=== PATIENT | female | born 1950 | race Caucasian/White ===

== ENCOUNTER 2021-03-17 12:55 | Outpatient (REF) | payer MEDICARE, OTHER, SELFPAY ==
[2021-03-17 14:03] LABS: Hemoglobin 15.8 g/dl (12.0-16.0); Mean Corpuscular HGB Conc 34.3 g/dl (31.0-35.0); Mean Corpuscular Hemoglobin 34.3 pg (27.0-33.0); Mean Corpuscular Volume 99.8 fL (80.0-98.0); Platelet Count 325 X10*3/uL (160-400); Red Blood Count 4.61 X10*6/uL (4.20-5.50); Red Cell Distribution Width 12.9 % (11.0-16.0); White Blood Count 6.5 X10*3/uL (4.8-10.8)
[2021-03-17 14:35] LABS: Alanine Aminotransferase 33 U/L (0-31); Albumin Level 4.4 g/dL (3.5-5.0); Alkaline Phosphatase 63 U/L (39-117); Anion Gap 14 (12-20); Aspartate Amino Transferase 34 U/L (5-31); Bilirubin Total 0.5 mg/dL (0.0-1.0); Blood Urea Nitrogen 10 mg/dL (9-16); Calcium 10.2 mg/dL (8.4-10.2); Carbon Dioxide 23 mmol/L (22-29); Chloride 106 mmol/L (96-108); Estimated Glomerular Filt Rate > 60; Glucose Random 106 mg/dL (60-115); Potassium 3.7 mmol/L (3.3-5.1); Sodium 139 mmol/L (135-145); Total Protein 7.1 g/dL (6.5-8.0)
== END 2021-03-17 12:56 | disposition home or self-care (01) ==
LOC: HO.LAB 12:55
PROVIDERS: PCP Internal Medicine; Referring Provider Internal Medicine; Visit Provider Nurse Practitioner Family
DX: Z01.818 Encounter for other preprocedural examination (principal); D36.9 Benign neoplasm, unspecified site
CPT/HCPCS: 36415; 80053; 85027; 99212

== ENCOUNTER 2021-07-04 07:27 | Day surgery (SDC) | payer MEDICARE, OTHER, SELFPAY ==
[2021-06-30 10:21] VITALS: BMI 27.9
--- NOTE | 2021-07-02 15:03 | P.CONAN_ITS ---
Documented by User: Norah Platt NP 07/02/21 15:04 HPI - Anesthesia Eval Consult details Narrative: 70yo F for Colonoscopy [facility] Past Medical History Medical History Colon cancer screening HTN (hypertension) Hypercholesterinemic xanthomatosis Tubular adenoma Family History Family History Father Colon cancer Mother Colon cancer Breast CA Surgical History Surgical History History of total right hip arthroplasty Hx of arthroscopic knee surgery Hx of colonoscopy Social History Social History Household Members: Spouse and Children Alcohol intake: current Alcohol intake frequency: holidays/special occasions only Patient Tobacco Use Status: Current everyday Tobacco user Tobacco use type: Cigarette Cigarette Packs Per Day: 0.5 Cigarettes Per Day: 10 Advance Directives: No Advance Directives Information Provided: Yes Advance Directives on File: No Meds Allergies Allergy/AdvReac Type Severity Reaction Status Date / Time No Known Allergies Allergy Unverified 03/17/21 12:59 Home Medications Medication Instructions Recorded Confirmed Last Taken Type atorvastatin 20 mg tablet 20 mg PO BEDTIME 03/17/21 06/30/21 Unknown History cholecalciferol (vitamin D3) 25 25 mcg PO DAILY 03/17/21 06/30/21 Unknown History mcg (1,000 unit) capsule losartan 100 1 tab PO DAILY 03/17/21 06/30/21 07/04/21 History mg-hydrochlorothiazide 12.5 mg tablet potassium chloride 10 mEq 10 meq PO DAILY 03/17/21 06/30/21 Unknown History tablet,extended release (Klor-Con) simvastatin 20 mg tablet 20 mg PO DAILY 03/17/21 06/30/21 Unknown History Exam Exam Date and Time: July 02, 2021 1503 Height,Weight and Vital Signs: Height 5 ft 5 in Weight 76.204 kg Pertinent Lab Results Pertinent Lab Results: Laboratory Tests 03/17/21 03/17/21 13:53 13:53 WBC 6.5 Hgb 15.8 Hct 46.0 Plt Count 325 Sodium 139 Potassium 3.7 Chloride 106 Carbon Dioxide 23 BUN 10 Creatinine 0.80 Assessment and Plan Assessment Anesthesia Assessment: Chart Reviewed Documented by User: Uma Russo MD 07/04/21 08:10 PMFSH Past Medical History Medical History Colon cancer screening HTN (hypertension) Hypercholesterinemic xanthomatosis Tubular adenoma Family History Family History Father Colon cancer Mother Colon cancer Breast CA Surgical History Surgical History History of total right hip arthroplasty Hx of arthroscopic knee surgery Hx of colonoscopy History of Problems with Anesthesia: Yes ( Woke up during colonoscopy 3 years ago) Social History Social History Household Members: Spouse and Children Alcohol intake: current Alcohol intake frequency: holidays/special occasions only Patient Tobacco Use Status: Current everyday Tobacco user Tobacco use type: Cigarette Cigarette Packs Per Day: 0.5 Cigarettes Per Day: 10 Advance Directives: No Advance Directives Information Provided: Yes Advance Directives on File: No Meds Allergies Allergy/AdvReac Type Severity Reaction Status Date / Time No Known Allergies Allergy Unverified 03/17/21 12:59 Home Medications Medication Instructions Recorded Confirmed Last Taken Type atorvastatin 20 mg tablet 20 mg PO BEDTIME 03/17/21 06/30/21 Unknown History cholecalciferol (vitamin D3) 25 25 mcg PO DAILY 03/17/21 06/30/21 Unknown History mcg (1,000 unit) capsule losartan 100 1 tab PO DAILY 03/17/21 06/30/21 07/04/21 History mg-hydrochlorothiazide 12.5 mg tablet potassium chloride 10 mEq 10 meq PO DAILY 03/17/21 06/30/21 Unknown History tablet,extended release (Klor-Con) simvastatin 20 mg tablet 20 mg PO DAILY 03/17/21 06/30/21 Unknown History Exam Airway Mallampati Class: III TM Dist: >3cm Neck ROM: Full Loose/Missing/Broken Teeth: No Heart: RRR Lungs: CTA Assessment and Plan Assessment Anesthesia Assessment: Anesthesia Plan Discussed Final Anesthetic Review History of Problems with Anesthesia: Yes ( Woke up during colonoscopy 3 years ago) NPO: Yes ASA Class: II Final Preanesthetic Review: Meds/Allgs Chart Reviewed, Consent Obtained/Reviewed and Anes Risks/Benef Reviewed Patient Risk: Low Procedure Risk: Low Anesthetic Plan Anesthetic Plan: MAC: Disposition: Standard PACU
[2021-07-04 07:54] VITALS: BP 178/94; PULSE 73; RESP 16; TEMP 36.5; O2SAT 97
[2021-07-04] MEDS: Lactated Ringers 1,000 ML 100 ML IVCONT (08:01)
--- NOTE | 2021-07-04 08:21 | MHC.SHP ---
Pre-Procedural Eval Section A Date of Service: 07/04/21 Section B Chief Complaint: Colon cancer screening, history of colon polyps Details of Present Illness: Colon cancer screening, history of colon polyps Relevant Family History (Specify if Yes): Yes Relevant Social History: Tobacco Use Present Medications: see Short Stay Collaborative assessment Medical History: Significant History (Colon cancer screening HTN (hypertension) Hypercholesterinemic xanthomatosis Tubular adenoma) History of Previous Operations: Relevant previous surgery/procedure and date(s) (History of total right hip arthroplasty Hx of colonoscopy) Allergies: Allergies Allergy/AdvReac Type Severity Reaction Status Date / Time No Known Allergies Allergy Unverified 03/17/21 12:59 Review of Systems Sugical H&P ROS: Negative: Constitution, Cardiovascular, Respiratory and Gastrointestinal Exam Surgical H&P Exam: Normal: Heart, Normal: Lungs, Normal: Extremities and Normal: Abdomen Plan Diagnosis/Plan: Unchanged I have reviewed the history and physical and performed a pertinent physical examination on my patient. No changes have occurred unless specified.
--- NOTE | 2021-07-04 08:23 | W.PM.OPN ---
Operative Note Operative Note Date of Service: 07/04/21 Narrative: Pre-op diagnosis: colon cancer screening, hx of colon polyps Post-op diagnosis:?other (Colon polyps, diverticulosis, hemorrhoids) Procedure: COLONOSCOPY TILL CECUM WITH BIOPSIES AND SNARE POLYPECTOMY Consent: Indications for the procedure and potential complications of bleeding, perforation, reaction to medications and missed diagnosis were discussed with the patient and informed consent was obtained. Instrument: Olympus PCF H 190 L variable stiffness pediatric colonoscope Monitoring: Vital signs and clinical assessment, intermittent blood pressure monitoring, continuous EKG monitoring, Pulse oximetry and Carbon Dioxide monitoring were done throughout the procedure. Colon withdrawl time was 21 minutes. Procedure: The patient was placed in the left lateral decubitis position and pre-procedure medications were administered. After a digital rectal examination of the ano-rectum, the video colonoscope was inserted into the rectum and advanced through the colon to the cecum. The colonoscope was slowly withdrawn in a retrograde panoramic fashion and the colon mucosa was carefully examined including a retroflexed view of the rectum. Findings and interventions are described below. Procedure Difficulty:? LLQ pressure applied to intubate the cecum Findings: Terminal Ileum: Not evaluated Cecum:? Normal Ascending Colon:? A 5-6 mm sessile polyp removed with the cold biopsy. Scattered moderate diverticulosis throughout the colon Transverse Colon:? A 7-8 mm sessile polyp removed with the cold snare. A 5-6 mm sessile polyp removed with the cold biopsy Scattered moderate diverticulosis throughout the colon Descending Colon:? Scattered moderate diverticulosis throughout the colon Sigmoid Colon:? Scattered moderate diverticulosis throughout the colon Rectum:? Normal Ano-rectum:? Moderate internal hemorrhoids Colon preparation:? Good after some irrigation Impression and Post Procedure Diagnosis: Colonoscopy Findings: Three small polyps removed Moderate diverticulosis seen in the entire colon Moderate hemorrhoids antegrade exam. Plan: Await pathology results Patient has an appointment on 07/18/21 in the GI Clinic with Pili Covington FNP-ISABELLE. Repeat Colonoscopy interval based on path results - in 3-5 years if polyps are adenomatous and 10 years if polyps are hyperplastic. Above findings were reviewed with the patient and colon polyps and diverticulosis handouts were given in the discharge area Surgeon: Franck Girard MD Anesthesia:?MAC (Dr Coburn) Was an Complex Director used for this Procedure?:?Yes Complex Director:?Yaima Griffin Estimated blood loss (mL):?0 Pathology:?other (A. transverse colon polyps (2)? B. ascending colon polyp) Condition:?stable Disposition:?PACU
[2021-07-04 09:32] VITALS: BP 153/82; PULSE 81; RESP 16; TEMP 36.1; O2SAT 98
[2021-07-04 09:48] VITALS: BP 159/87; PULSE 72; RESP 16; TEMP 36.1; O2SAT 97
== END 2021-07-04 10:05 | disposition home or self-care (01) ==
PROVIDERS: PCP Internal Medicine; Visit Provider Internal Medicine Gastroenterology
PROC: 0DJD8ZZ Inspection of Lower Intestinal Tract, Via Natural or Artificial Opening Endoscopic (ICD-10-PCS; CPT 45378; principal; 2021-07-04 08:30)
DX: Z12.11 Encounter for screening for malignant neoplasm of colon (principal); D12.2 Benign neoplasm of ascending colon; D12.3 Benign neoplasm of transverse colon; K57.30 Diverticulosis of large intestine without perforation or abscess without bleeding; K64.8 Other hemorrhoids; Z86.010 Personal history of colon polyps; I10 Essential (primary) hypertension; F17.210 Nicotine dependence, cigarettes, uncomplicated
CPT/HCPCS: 45385; 45380; 88305; J2250

== ENCOUNTER → 2021-10-10 13:54 | Outpatient (BNVA) | payer MEDICARE, OTHER, SELFPAY | PROVIDERS: PCP Internal Medicine; Referring Provider Internal Medicine; Visit Provider Nurse Practitioner Family | DX: D12.2 Benign neoplasm of ascending colon (principal); D12.3 Benign neoplasm of transverse colon; K57.30 Diverticulosis of large intestine without perforation or abscess without bleeding; K64.8 Other hemorrhoids; Z98.890 Other specified postprocedural states | CPT/HCPCS: 99212 ==

== ENCOUNTER 2023-10-14 15:52 | Outpatient (REF) | payer MEDICARE, OTHER, SELFPAY ==
[2023-10-14 15:58] LABS: MANUAL DIFF FLAG NO
[2023-10-14 16:07] LABS: Basophils Absolute Auto 0.1 X10*3/uL (0.0-0.2); Basophils Percent Auto 0.8 % (0-2); Eosinophils Absolute Auto 0.1 X10*3/uL (0.0-0.4); Eosinophils Percent Auto 0.8 % (0-4); Hematocrit 45.2 % (37.0-47.0); Hemoglobin 15.3 g/dl (12.0-16.0); Imm Gran Abs Auto 0.02 X10*3/uL (0.00-0.03); Imm Gran Pct Auto 0.3 % (0.0-0.4); Lymphocytes Absolute Auto 1.8 X10*3/uL (1.2-4.9); Mean Corpuscular HGB Conc 33.8 g/dl (31.0-35.0); Mean Corpuscular Hemoglobin 33.8 pg (27.0-33.0); Mean Platelet Volume 9.8 fL (9.4-12.3); Monocytes Absolute Auto 0.6 X10*3/uL (0.1-1.2); Monocytes Percent Auto 7.9 % (2-11); Neutrophils Percent Auto 66.2 % (45-73); Platelet Count 354 X10*3/uL (160-400); Red Blood Count 4.52 X10*6/uL (4.20-5.50); Red Cell Distribution Width 13.5 % (11.0-16.0); White Blood Count 7.5 X10*3/uL (4.8-10.8)
[2023-10-14 16:15] LABS: Alanine Aminotransferase 22 U/L (0-31); Albumin Level 4.3 g/dL (3.5-5.0); Alkaline Phosphatase 48 U/L (39-117); Anion Gap 14 (12-20); Aspartate Amino Transferase 24 U/L (5-31); Bilirubin Total 0.6 mg/dL (0.0-1.0); Blood Urea Nitrogen 9 mg/dL (9-16); Calcium 11.2 mg/dL (8.4-10.2); Carbon Dioxide 23 mmol/L (22-29); Chloride 107 mmol/L (96-108); Estimated Glomerular Filt Rate > 60; Glucose Fasting 122 mg/dL (60-99); Potassium 3.4 mmol/L (3.3-5.1); Sodium 141 mmol/L (135-145); Total Protein 7.1 g/dL (6.5-8.0)
== END 2023-10-14 15:53 | disposition home or self-care (01) ==
LOC: HO.LNP 15:52
PROVIDERS: Visit Provider Internal Medicine
DX: I10 Essential (primary) hypertension (principal); R60.0 Localized edema
CPT/HCPCS: 80053; 85025

== ENCOUNTER 2023-10-18 10:39 | Outpatient (REF) | payer MEDICARE, OTHER, SELFPAY ==
[2023-10-18 13:42] LABS: Calcium 11.4 mg/dL (8.4-10.2)
[2023-10-18 13:54] LABS: Parathyroid Hormone Intact 54.6 pg/mL (8.7-77.1)
== END 2023-10-18 10:40 | disposition home or self-care (01) ==
LOC: HO.10HDL 10:39
PROVIDERS: Visit Provider Internal Medicine
DX: E83.52 Hypercalcemia (principal)
CPT/HCPCS: 36415; 82310; 83970

== ENCOUNTER 2023-10-25 10:18 | Outpatient (AMB) | payer MEDICARE, OTHER, SELFPAY ==
--- NOTE | 2023-10-25 10:24 | A.OFFVIS_ITS ---
Vital Signs 10/25/23 10:28 Height 5 ft 5 in Weight 171 lb 15.369 oz BMI 28.6 BP 158/84 H Blood Pressure Location Lt brachial Position Sitting Pulse 101 H Pulse Source Pulse Oximeter Intake Visit Reasons: Disorder of parathyroid gland-lvm Intake Note: Patient present today for disorder of parathyroid gland follow up visit. 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 First noted to have high calcium just noticed . Not Currently using Calcium supplement . Takes 1000 IU of Vitamin D daily. Currently 37.5 using HCTZ. Kidney stones: No Osteoporosis: No History of [place] use: No Biotin use: No Family history of high calcium or kidney stones: No Renal imaging: [] DXA: Labs: [facility] Medical History (Updated 10/25/23 @ 10:38 by Arya Castillo MD) Hypercalcemia Colon cancer screening Tubular adenoma Hypercholesterinemic xanthomatosis HTN (hypertension) Surgical History Hx of arthroscopic knee surgery History of total right hip arthroplasty Hx of colonoscopy Family History Father Colon cancer Mother Colon cancer Breast CA Social History Household Members: Spouse and Children Alcohol intake: current Alcohol intake frequency: holidays/special occasions only Patient Tobacco Use Status: Current everyday Tobacco user Tobacco use type: Cigarette Cigarette Packs Per Day: 0.5 Cigarettes Per Day: 10 Physical Exam Vital Signs: Last Vital Signs Pulse 101 H 10/25/23 10:28 BP 158/84 H 10/25/23 10:28 BMI result Body Mass Index 28.6 There are no Cushingoid features. Neck exam shows nl thyroid about 15 gms. Lungs CTA. Heart S1 S2 Reg R/R -MRG. Abdomina exam benign . Muscle strength 5/5 proximally. No hirsuitism present. No striae present. Skin exam without lesion Assessment & Plan Assessment & Plan (1) Hypercalcemia: Code(s): E83.52 - Hypercalcemia Category: Medical Plan: This 73-year-old white female with a history of hypercalcemia currently on hydrochlorothiazide 37.5 mg per day. Possible etiologies include hydrochlorothiazide, primary hyperparathyroidism. Plan is to talk to the patient's primary care provider about holding hydrochlorothiazide for 8 weeks time and rechecking calcium and PTH. If calcium and PTH remains elevated after holding hydrochlorothiazide, patient returned ba ck to endocrinology for further workup. Coding Level of Care Code New Pt Level 4 (85967) Diagnoses Hypercalcemia E83.52
[2023-10-25 10:28] VITALS: BP 158/84; PULSE 101; BMI 28.6
== END 2023-10-25 11:00 | disposition home or self-care (01) ==
PROVIDERS: PCP Internal Medicine; Visit Provider Internal Medicine Endocrinology, Diabetes & Metabolism
DX: E83.52 Hypercalcemia (principal)
CPT/HCPCS: 99204

== ENCOUNTER → 2023-10-25 10:18 | Outpatient (BNVA) | payer MEDICARE, OTHER, SELFPAY | PROVIDERS: PCP Internal Medicine; Visit Provider Internal Medicine Endocrinology, Diabetes & Metabolism | DX: E83.52 Hypercalcemia (principal) | CPT/HCPCS: 99202 ==

== ENCOUNTER 2023-11-18 17:08 | Outpatient (REF) | payer MEDICARE, OTHER, SELFPAY ==
--- NOTE | ~2023-11-18 | MR_ITS ---
MRI OF THE LUMBAR SPINE WITHOUT IV CONTRAST CLINICAL INFORMATION: Spinal stenosis. COMPARISON: None available. TECHNIQUE: Multiplanar multisequence MR imaging of the lumbar spine obtained without contrast. FINDINGS: There are 5 nonrib-bearing lumbar-type vertebral bodies. Lumbar alignment is maintained. Marrow signal is diffusely heterogeneous. Modic type I endplate signal changes at L3-L4 and L4-L5. No additional bone marrow edema. No acute fractures. The vertebral body heights are maintained. There is severe disc volume loss at L4-L5 and there is mild disc volume loss of the remaining lumbar levels. There is disc desiccation at all lumbar levels. Conus terminates at the L1-L2 level. There is scattered colonic diverticulosis. There is paraspinal muscular atrophy bilaterally. Fatty filum terminale. L1-L2: Disc contour is normal. Mild bilateral facet arthropathy. No central canal stenosis and no foraminal stenosis. L2-L3: A left paracentral disc protrusion compresses the traversing left L3 nerve root within the left subarticular zone. [place] annular disc bulge and bilateral facet arthropathy and ligamentum flavum thickening. Mild central canal stenosis. L3-L4: Diffuse annular disc bulge that is in part disc osteophyte and severe bilateral facet arthropathy and ligamentum flavum thickening. Findings in concert result in moderate to severe central canal stenosis, bilateral subarticular zone stenosis with mass effect on the traversing L4 nerve roots bilaterally, and mild bilateral foraminal encroachment. L4-L5: Diffuse disc osteophyte complex and severe bilateral facet arthropathy and ligamentum flavum thickening. Findings in concert along with epidural lipomatosis moderately effaced the thecal sac. Left subarticular zone stenosis with mild mass effect on the traversing left L5 nerve root. Mild foraminal encroachment bilaterally. L5-S1: Diffuse disc osteophyte and advanced right-sided facet arthropathy. No foraminal stenosis. Narrowing of the right subarticular zone with mild mass effect on the traversing right S1 nerve root. MR/MR lumbar spine wo con IMPRESSION: * At L2-L3, a left paracentral disc protrusion compresses the traversing left L3 nerve root within the left subarticular zone. * At L3-L4, multifactorial degenerative changes result in moderate to severe central canal stenosis, bilateral subarticular zone stenosis with mass effect on the traversing L4 nerve roots bilaterally, and mild bilateral foraminal encroachment. Modic type I endplate signal changes at this level. * At L4-L5, multifactorial degenerative changes and epidural lipomatosis result in moderate thecal sac effacement and left subarticular zone stenosis with mild mass effect on the traversing left L5 nerve root. Modic type I endplate signal changes at this level. * At L5-S1, multifactorial degenerative changes result in right subarticular zone stenosis with mild mass effect on the traversing right S1 nerve root. Electronically signed by: Shashi Hopkins MD 11/29/2023 01:55 PM EDT
== END 2023-11-18 17:09 | disposition home or self-care (01) ==
LOC: HO.MRI 17:08
PROVIDERS: PCP Internal Medicine; Visit Provider Internal Medicine
DX: M48.07 Spinal stenosis, lumbosacral region (principal)
CPT/HCPCS: 72148

== ENCOUNTER 2023-12-10 10:49 | Outpatient (AMB) | payer MEDICARE, OTHER, SELFPAY ==
--- NOTE | 2023-12-10 11:22 | A.SPINEOV_ITS ---
Intake Visit Reasons: spinal stenosis Intake Note: Mrs. Epps is here today c/o back pain. 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 She is a very nice 73-year-old female presents to the office today for evaluation of 4 years of low back pain. She generally has back pain most of the day, as she is more active it can get worse. It is generally centered in the middle of her lumbar spine. There is no pain radiating down her legs. She has no claudicating symptoms. To this point she has done no specific therapy other than just hoping it would go away with time and modifying her activities as needed. She has tried ibuprofen. She is here today with an MRI showing degenerative disc disease and stenosis. PMH: She is reasonably healthy, history of hypertension, right hip replacement, high cholesterol, but denies any issues with cardiac, pulmonary, liver, gastrointestinal, renal, cancer, blood clot etc.. Social hx: She does smoke about half pack a day, but no alcohol or recreational drugs on a regular basis Medications: Hydrochlorothiazide, losartan, MiraLax, potassium, simvastatin, vitamin D3, atorvastatin Allergies: None Physical exam: She is awake alert oriented, she has tenderness and reports pain over the midline lumbar region. Strength and reflexes are normal in the lower extremities. Slightly antalgic gait. Imaging review: Lumbar MRI done at [place] shows diffuse spondylosis, there is degenerative disc disease most pronounced at L4-5 where there is Modic type 3 endplate changes. There is also some disc break down at L3-4 with moderate to severe central canal stenosis. There other varying degrees of mild disc degeneration throughout the lumbar spine seen on her MRI. Impression: 73-year-old female presents to the office today for evaluation of midline low back pain in the setting of diffuse spondylosis in her lumbar spine, most pronounced at L3-4 and L4-5 as outlined above. She does have stenosis at L3-4 but no lowe extremity symptoms with walking and standing. Surgery for stenosis and strictly back pain without claudicating sxs is very unpredictable with low success rates, so typically Dr. Villaseñor does not offer decompression surgery in that situation. I explained to the patient that low back pain can be very challenging to establish the exact source and that before considering an operation to fix any degenerative discs, we would generally ask the patient to go through conservative treatment 1st. This would include physical therapy, chiropractor, acupuncture, pain management etc.. While she does have enough degeneration at L4-5 that it may explain her symptoms, we would be neglecting due diligence if we did not at least try these other things 1st. I gave her a referral to PT and would like her to try that for few months and see how it goes. I told her if its generating more pain she can stop it and see me back earlier and we can consider pain management referral. Thank you for allowing us to care for your patient. The total time spent with this visit with this patient was 45 minutes reviewing history, physical exam, lumbar imaging review, and implementation of treatment plan or further diagnostic testing Erik Villaseñor MD,PhD [facility] Orders: Orders PT Evaluation and Treatment Today M51.36 - Other intervertebral disc degeneration, lumbar region Coding Level of Care Code New Pt Level 4 (03255) Diagnoses Lumbar degenerative disc disease M51.36
== END 2023-12-10 12:12 | disposition home or self-care (01) ==
PROVIDERS: PCP Internal Medicine; Referring Provider Internal Medicine; Visit Provider Physician Assistant
DX: M51.36 Other intervertebral disc degeneration, lumbar region (principal)
CPT/HCPCS: 99204

== ENCOUNTER → 2023-12-10 10:49 | Outpatient (BNVA) | payer MEDICARE, OTHER, SELFPAY | PROVIDERS: PCP Internal Medicine; Visit Provider Physician Assistant | DX: M51.36 Other intervertebral disc degeneration, lumbar region (principal) | CPT/HCPCS: 99202 ==

== ENCOUNTER 2023-12-28 11:10 | Outpatient (REF) | payer MEDICARE, OTHER, SELFPAY ==
[2023-12-28 12:01] LABS: Calcium 10.8 mg/dL (8.4-10.2)
[2023-12-28 12:11] LABS: Parathyroid Hormone Intact 57.9 pg/mL (8.7-77.1)
== END 2023-12-28 11:11 | disposition home or self-care (01) ==
LOC: HO.LAB 11:10
PROVIDERS: PCP Internal Medicine; Visit Provider Internal Medicine
DX: E83.52 Hypercalcemia (principal)
CPT/HCPCS: 36415; 82310; 83970

== ENCOUNTER 2024-01-24 11:18 | Outpatient (AMB) | payer MEDICARE, OTHER, SELFPAY ==
--- NOTE | 2024-01-24 11:26 | MHC.OFFVIS ---
Vital Signs 01/24/24 11:27 Height 5 ft 5 in Weight 171 lb 4.787 oz BMI 28.5 BP 180/90 H Blood Pressure Location Lt brachial Position Sitting Pulse 89 Pulse Source Pulse Oximeter Intake Visit Reasons: Disorder of parathyroid gland-conf Intake Note: Patient present today for Disorder of parathyroid gland follow up visit. Library Paraprofessional Required: No Accompanied by: Spouse Allergies No Known Allergies Allergy (Verified 01/24/24 11:31) HPI Comments Details: 73 YO F with who is seen in consultation at the request of PCP for Hypercalcemia. First noted to have high calcium just noticed . Not Currently using Calcium supplement . Takes 1000 IU of Vitamin D daily. Currently 37.5 using HCTZ. Kidney stones: No Osteoporosis: No History of [place] use: No Biotin use: No Family history of high calcium or kidney stones: No Renal imaging: [] DXA: Labs: [facility], [facility] Medical History (Updated 12/10/23 @ 12:08 by JUNE Shah) Hypercalcemia Colon cancer screening Tubular adenoma Hypercholesterinemic xanthomatosis HTN (hypertension) Surgical History Hx of arthroscopic knee surgery History of total right hip arthroplasty Hx of colonoscopy Family History Father Colon cancer Mother Colon cancer Breast CA Social History Household Members: Spouse and Children Alcohol intake: current Alcohol intake frequency: holidays/special occasions only Patient Tobacco Use Status: Current everyday Tobacco user Tobacco use type: Cigarette Cigarette Packs Per Day: 0.5 Cigarettes Per Day: 10 Physical Exam Vital Signs: Last Vital Signs Pulse 89 01/24/24 11:27 BP 180/90 H 01/24/24 11:27 BMI result Body Mass Index 28.5 Assessment & Plan Assessment & Plan (1) Hypercalcemia: Code(s): E83.52 - Hypercalcemia Category: Medical Plan: This 73-year-old white female with a history of hypercalcemia currently on hydrochlorothiazide 37.5 mg per day. Possible etiologies include hydrochlorothiazide, primary hyperparathyroidism. Plan is to repeat calcium, albumin and PTH at [facility] ([facility]) now the patient is off the hydrochlorothiazide for about 2 months. Depending upon the above, may do a further workup for primary hyperparathyroidism and see if there are any manifestations to his osteoporosis or kidney stones that would warrant parathyroid exploration. If calcium and PTH are normal at outside lab, patient can follow-up with the primary care provider Orders: Orders Calcium Today E83.52 - Hypercalcemia Albumin Level Today E83.52 - Hypercalcemia Parathyroid Hormone Intact Today E83.52 - Hypercalcemia Coding Level of Care Code Est Pt Level 3 (19583) Diagnoses Hypercalcemia E83.52
[2024-01-24 11:27] VITALS: BP 180/90; PULSE 89; BMI 28.5
== END 2024-01-24 11:49 | disposition home or self-care (01) ==
PROVIDERS: PCP Internal Medicine; Visit Provider Internal Medicine Endocrinology, Diabetes & Metabolism
DX: E83.52 Hypercalcemia (principal)
CPT/HCPCS: 99213

== ENCOUNTER → 2024-01-24 11:18 | Outpatient (BNVA) | payer MEDICARE, OTHER, SELFPAY | PROVIDERS: PCP Internal Medicine; Visit Provider Internal Medicine Endocrinology, Diabetes & Metabolism | DX: E83.52 Hypercalcemia (principal) | CPT/HCPCS: 99212 ==

== ENCOUNTER 2024-01-27 11:00 | Outpatient (RCR) | payer MEDICARE, OTHER, SELFPAY ==
--- NOTE | 2024-01-04 15:00 | MHC.PT.EP ---
[facility] [place] [facility] Office [place] Office [place] Office [address] Sh[address] Seg[address] [phone] F: [phone] F: [phone] F: [phone] F: [phone] Physical Therapy Plan of Care Date of Evaluation: 01/04/24 Date of Surgery: Diagnosis: LUMBAR DDD Assessment: 73 YO FEMALE REF TO PT FOR LUMBAR DDD, PROGRESSIVE x 4 YRS - OF IMPORTANCE, SHE HAD A Rt MONO W DR OAKES (ANT APPROACH) APPROX 8 YRS AGO W RESULTANT LLI. SHE AMB W A CANE- INCR LATERAL SHIFT AND SHE HAS SOME UNSTEADINESS. OBJECTIVELY, THE Pt HAS DECR TRUNK / HIP AROM; (+) STRENGTH DEFICITS IN LUMBOPELVIC/ PROX LEs, (+) TISSUE TENSION IN VERO LB, FLUCTUATING PAIN, AND SOME UNSTEADINESS W HIGHER LEVEL ADLs. FUNCTIONALLY, THE Pt HAS DECR NEFTALY TO STANDING, WALKING, STAIR NAVIGATION- SHE AMB W A CANE W (+) INCR LATERAL SHIFT AND INTER UNSTEADINESS. THE Pt AGREES W PT POC AND WE WILL PROCED TO ADDRESS THE ABOVE FINDINGS. Frequency and Duration: The patient will be seen 2 x WK x 5 WKS Short Term Goals: *DECR LBP TO 2-3/10 *INITIATE HEP--> IMPROVE ANKLE AROM/ STAB *ASSESS LUMBOPELVIC SYMMETRY ADDRESS HIP AND TRUNK HYPOMOBILTY AND LS STABILIZATION *IMPROVE STATIC -> DYNAMIC BALANCE W ADLs Hand Scudder Goals: *Pt INDEP W HEP AND SELF-SX MGMT TECHN *Pt DEMON IMPROVED ADL/ FUNCT MOB NEFTALY EVIDENT W IMPROVED OSWESTRY (AT EVAL 22/50) *THE Pt DEMON EFFICIENT GAIT MECH ON LEVEL GROUND AND STAIRS, W REG ADLs *LEs STRENGTH IMPROVED BY 1 GRADE Treatment Plan: Modalities to reduce pain, spasms and effusion. Manual therapy to restore motion and function. Therapeutic exercise to improve strength and flexibility. Neuromuscular re-education for posture and balance. Therapeutic activities to return to functional activities of daily living. Electronically signed by: BRAYDEN DYE,PT Please sign and return to therapist. Thank you for your referral.
--- NOTE | 2024-04-10 11:43 | MHC.PT.DC ---
[facility] [place] Office [employer] [place] [facility] [place] [facility] [address] Marbella Segura [address] [phone] F: [phone] F: [phone] F: [phone] F: [phone] Physical Therapy Discharge Report Diagnosis: LUMBAR DDD Date of Surgery: Date of Evaluation: 01/04/24 Date of Discharge: 04/10/24 Treatments to Date: 4 Cancellations to Date: 5 No Shows to Date: 0 Discharge Status: Patient Elected to Stop Discharge Summary: THE Pt IS REFERRED BACK TO HER MD DUE TO LACK OF PROGRESS W (MODIFIED) PT INTERVENTION, DESPITE ATTEMPTS TO VARY POSITIONS TO REDUCE SPINAL STRESS AND TO ENHANCE CORE ENGAGEMENT. SHE DID NOT MEET PT GOALS AND IS D/C AT THIS TIME. Electronically signed by: Janie Burgess, PT Please sign and return to therapist. Thank you for your referral.
== END 2024-04-10 11:44 | disposition home or self-care (01) ==
LOC: HO.PT 11:00
PROVIDERS: PCP Internal Medicine; Visit Provider Physician Assistant
DX: M51.369 Other intervertebral disc degeneration, lumbar region without mention of lumbar back pain or lower extremity pain (principal)
CPT/HCPCS: 97110; 97140; 97162; 97535

== ENCOUNTER 2024-02-11 11:46 | Outpatient (AMB) | payer MEDICARE, OTHER, SELFPAY ==
--- NOTE | 2024-02-11 11:49 | HO.SPINEOV ---
Intake Visit Reasons: 2 month f/u after PT Intake Note: Mrs. Epps is here today for a F/u after PT. Waist Presser Required: No Allergies No Known Allergies Allergy (Verified 01/24/24 11:31) Assessment & Plan Assessment & Plan (1) Lumbar degenerative disc disease: Code(s): M51.36 - Other intervertebral disc degeneration, lumbar region Category: Medical Plan Mrs Epps is back in the office today to review how things went with physical therapy. Unfortunately by the end of it, it made things become more aggravated. We discussed again the MRI showing severe disc degeneration at L4-5 and to a lesser degree L3-4. There are some Modic endplate changes there. I can see even back to her CT scan in 2019 that she had severe DDD at L4-5 at that time. Typically this is something Dr. Villaseñor would treat with fusion surgery. Usually either an oblique lumbar interbody fusion versus a trans Kambin approach. I described these procedures to her, but currently she is not interested in going the direction of surgery. She is asking about possible other interventional pain management options. I will refer her to and see if he has any options for her. If these things do not give her any relief, I told her to come back and we could discuss surgery when she is ready. Total amount of time spent in this visit was 20 minutes in discussion of symptoms, lumbar MRI imaging results and subsequent plan of care Erik Villaseñor MD,PhD [facility] Orders: Referrals Pain Management Referral M51.36 - Other intervertebral disc degeneration, lumbar region Coding Level of Care Code Est Pt Level 3 (01798) Diagnoses Lumbar degenerative disc disease M51.36
== END 2024-02-11 12:00 | disposition home or self-care (01) ==
PROVIDERS: PCP Internal Medicine; Visit Provider Physician Assistant
DX: M51.369 Other intervertebral disc degeneration, lumbar region without mention of lumbar back pain or lower extremity pain (principal)
CPT/HCPCS: 99213

== ENCOUNTER → 2024-02-11 11:46 | Outpatient (BNVA) | payer MEDICARE, OTHER, SELFPAY | PROVIDERS: PCP Internal Medicine; Visit Provider Physician Assistant | DX: M51.360 Other intervertebral disc degeneration, lumbar region with discogenic back pain only (principal) | CPT/HCPCS: 99212 ==

== ENCOUNTER 2024-02-21 11:52 | Outpatient (AMB) | payer MEDICARE, OTHER, SELFPAY ==
[2024-02-21 11:55] VITALS: BP 168/72; PULSE 77; RESP 16; O2SAT 98; BMI 28.5
--- NOTE | 2024-02-21 11:55 | MHC.OFFVIS ---
Vital Signs 02/21/24 11:55 Height 5 ft 5 in Weight 171 lb BMI 28.5 BP 168/72 H Blood Pressure Location Rt brachial Position Sitting Respiration 16 Pulse 77 Pulse Source Pulse Oximeter Pulse Oximetry (%) 98 Oxygen Delivery Method Room Air Intake Visit Reasons: Intervertebral Disc Degeneration Allergies No Known Allergies Allergy (Verified 02/21/24 11:57) Medication List - Last Reconciled 02/21/24 by Yuliya Siegel LPN atorvastatin 20 mg PO BEDTIME cholecalciferol (vitamin D3) 25 mcg PO DAILY hydrochlorothiazide 25 mg PO DAILY potassium chloride ER (Klor-Con) 10 mEq PO DAILY valsartan 320 mg PO DAILY HPI HPI Intervertebral Disc Degeneration: Details: 73-year-old female who is accompanied today by his for evaluation of low back pain. She has had low back pain for the last 5 years. She had diffuse spondylosis in her lumbar spine, most pronounced at L3-4 and L4-5. She does have stenosis at L3-4. Initially, she has has tried ibuprofen to for low back pain and physical therapy subsequently, but unfortunately the pain aggravated with physical therapy, so she stopped doing it. Her recent MRI showed severe disc degeneration at L4-5 and to a lesser degree L3-4. There are some Modic endplate changes there. She continues to report pain in her mid back. She endorses the pain usually gets worse when she gets up in the morning. She notes the pain aggravates while walking upstairs. She has no difficulty with bending, although experiences mild pain while getting up from a sitting position. The pain does not radiate to legs. She tried physical therapy in the past without benefit. [facility] Medical History (Updated 02/29/24 @ 09:25 by Garfield Quiles MD) Hypercalcemia Colon cancer screening Tubular adenoma Hypercholesterinemic xanthomatosis HTN (hypertension) Surgical History Hx of arthroscopic knee surgery History of total right hip arthroplasty Hx of colonoscopy Family History Father Colon cancer Mother Colon cancer Breast CA Social History Household Members: Spouse and Children Alcohol intake: current Alcohol intake frequency: holidays/special occasions only Patient Tobacco Use Status: Current everyday Tobacco user Tobacco use type: Cigarette Cigarette Packs Per Day: 0.5 Cigarettes Per Day: 10 Review of Systems Const All systems reviewed & are unremarkable except as noted in HPI and below Physical Exam Vital Signs: Last Vital Signs Pulse 77 02/21/24 11:55 Resp 16 02/21/24 11:55 BP 168/72 H 02/21/24 11:55 Pulse Ox 98 02/21/24 11:55 Oxygen Delivery Method Room Air 02/21/24 11:55 BMI result Body Mass Index 28.5 General: Appears afebrile. Alert and oriented. Mood and affect appropriate. Follows and participates in conversation appropriately. Respiratory effort is unlabored. Able to transition from sit to stand unassisted. Ambulates with bilaterally normal heel strike and toe off. Anterior column loading reproduces mild discomfort. Lumbar extension is severely limited and produces significant discomfort. Results Reviewed Results Reviewed: Date: 11/18/23 MRI OF THE LUMBAR SPINE WITHOUT IV CONTRAST FINDINGS: There are 5 nonrib-bearing lumbar-type vertebral bodies. Lumbar alignment is maintained. Marrow signal is diffusely heterogeneous. Modic type I endplate signal changes at L3-L4 and L4-L5. No additional bone marrow edema. No acute fractures. The vertebral body heights are maintained. There is severe disc volume loss at L4-L5 and there is mild disc volume loss of the remaining lumbar levels. There is disc desiccation at all lumbar levels. Conus terminates at the L1-L2 level. There is scattered colonic diverticulosis. There is paraspinal muscular atrophy bilaterally. Fatty filum terminale. L1-L2: Disc contour is normal. Mild bilateral facet arthropathy. No central canal stenosis and no foraminal stenosis. L2-L3: A left paracentral disc protrusion compresses the traversing left L3 nerve root within the left subarticular zone. [place] annular disc bulge and bilateral facet arthropathy and ligamentum flavum thickening. Mild central canal stenosis. L3-L4: Diffuse annular disc bulge that is in part disc osteophyte and severe bilateral facet arthropathy and ligamentum flavum thickening. Findings in concert result in moderate to severe central canal stenosis, bilateral subarticular zone stenosis with mass effect on the traversing L4 nerve roots bilaterally, and mild bilateral foraminal encroachment. L4-L5: Diffuse disc osteophyte complex and severe bilateral facet arthropathy and ligamentum flavum thickening. Findings in concert along with epidural lipomatosis moderately effaced the thecal sac. Left subarticular zone stenosis with mild mass effect on the traversing left L5 nerve root. Mild foraminal encroachment bilaterally. L5-S1: Diffuse disc osteophyte and advanced right-sided facet arthropathy. No foraminal stenosis. Narrowing of the right subarticular zone with mild mass effect on the traversing right S1 nerve root. IMPRESSION: At L2-L3, a left paracentral disc protrusion compresses the traversing left L3 nerve root within the left subarticular zone. At L3-L4, multifactorial degenerative changes result in moderate to severe central canal stenosis, bilateral subarticular zone stenosis with mass effect on the traversing L4 nerve roots bilaterally, and mild bilateral foraminal encroachment. Modic type I endplate signal changes at this level. At L4-L5, multifactorial degenerative changes and epidural lipomatosis result in moderate thecal sac effacement and left subarticular zone stenosis with mild mass effect on the traversing left L5 nerve root. Modic type I endplate signal changes at this level. At L5-S1, multifactorial degenerative changes result in right subarticular zone stenosis with mild mass effect on the traversing right S1 nerve root. Assessment & Plan Assessment & Plan (1) Vertebrogenic low back pain: Code(s): M54.51 - Vertebrogenic low back pain Category: Medical (2) Lumbar spondylosis: Code(s): M47.816 - Spondylosis without myelopathy or radiculopathy, lumbar region Category: Medical (3) Dysfunction of the multifidus muscle of lumbar region: Code(s): M62.85 - Dysfunction of the multifidus muscles, lumbar region Category: Medical (4) Degeneration, intervertebral disc, lumbosacral: Code(s): M51.379 - Other intervertebral disc degeneration, lumbosacral region without mention of lumbar back pain or lower extremity pain Category: Medical Plan I discussed BVN ablation and temporary lumbar medial branch nerve stimulation with her as potential treatment options for her intractable axial low back pain secondary to lumbar spondylosis, multifidus dysfunction, and vertebral end plate degeneration. She will proceed with temporary medial branch nerve stimulation as the next step in her treatment. We will start with the left side L3 medial branch nerve stimulator placement followed by the right side 2 weeks later. We will request insurance authorization Proceed accordingly. Discussed the risks and benefits of the procedure with the patient in detail. All questions were answered. The patient is on board with the plan. Justification for interventional therapy: ?Patient with average pain > 6/10 ?Patient has exhausted conservative therapy. .Patient has a good understanding of their pain condition and has appropriate mental and social support. Scribed for Dr. Quiles by Mc Ward, medical art therapist, on 02/21/2024.? I, Dr. Quiles, have personally reviewed and agree with the information entered by the scribe. Medications: New diazepam 5 mg PO ONCE PRN 2 tabs 0RF anxiety Coding Level of Care Code New Pt Level 4 (93521) Diagnoses Vertebrogenic low back pain M54.51 Lumbar spondylosis M47.816 Dysfunction of the multifidus muscle of lumbar region M62.85 Degeneration, intervertebral disc, lumbosacral M51.379
== END 2024-02-21 12:33 | disposition home or self-care (01) ==
LOC: HO.PMC 11:52
PROVIDERS: PCP Internal Medicine; Referring Provider Physician Assistant; Visit Provider Internal Medicine
DX: M54.51 Vertebrogenic low back pain (principal); M47.816 Spondylosis without myelopathy or radiculopathy, lumbar region; M62.85 Dysfunction of the multifidus muscles, lumbar region; M51.379 Other intervertebral disc degeneration, lumbosacral region without mention of lumbar back pain or lower extremity pain
CPT/HCPCS: 99204

== ENCOUNTER → 2024-02-21 11:52 | Outpatient (BNVA) | payer MEDICARE, OTHER, SELFPAY | PROVIDERS: PCP Internal Medicine; Referring Provider Physician Assistant; Visit Provider Internal Medicine | DX: M54.51 Vertebrogenic low back pain (principal); M47.816 Spondylosis without myelopathy or radiculopathy, lumbar region; M62.85 Dysfunction of the multifidus muscles, lumbar region; M51.379 Other intervertebral disc degeneration, lumbosacral region without mention of lumbar back pain or lower extremity pain | CPT/HCPCS: 99202 ==

== ENCOUNTER 2024-03-16 06:06 | Outpatient (REF) | payer MEDICARE, OTHER, SELFPAY ==
--- NOTE | ~2024-03-16 | FL_ITS ---
EXAMINATION: FLUORO GUIDANCE IN TREATMENT ROOM CLINICAL INFORMATION: Spondylosis without myelopathy or radiculopathy, lumbar region. COMPARISON: None available. TECHNIQUE: Fluoroscopy supervised by: Dr. Garfield Quiles. Fluoroscopy time: 0.1 minutes. Cumulative Dose: 2.09 mGy. DAP: 0.0174 mGy-m2 (milligray-meter squared). Images: 2. FINDINGS: A single spinal needle is present just to the left of a mid lumbar vertebral body. Site cannot be ascertained from a 2 Spot films. FL/FL guidance in treatment room IMPRESSION: Fluoroscopy during procedure. Please see procedure report for additional information. Electronically signed by: Tal Kirk MD 05/04/2024 07:32 AM MARITA
== END 2024-03-16 06:07 | disposition home or self-care (01) ==
LOC: CF 06:06
PROVIDERS: Visit Provider Internal Medicine
DX: M47.816 Spondylosis without myelopathy or radiculopathy, lumbar region (principal); M62.85 Dysfunction of the multifidus muscles, lumbar region; G89.29 Other chronic pain
CPT/HCPCS: 64555; C1778; J2003

== ENCOUNTER 2024-03-16 09:15 | Outpatient (AMB) | payer MEDICARE, OTHER, SELFPAY ==
[2024-03-16 09:21] VITALS: BP 168/94; PULSE 90; O2SAT 98
--- NOTE | 2024-03-16 09:21 | MHC.OFFVIS ---
Vital Signs 03/16/24 09:21 03/16/24 09:50 BP 168/94 H 158/92 H Blood Pressure Location Lt brachial Lt brachial Position Sitting Sitting Pulse 90 79 Pulse Source Pulse Oximeter Pulse Oximeter Pulse Oximetry (%) 98 97 Oxygen Delivery Method Room Air Room Air Intake Visit Reasons: Left L3 Sprint Allergies No Known Allergies Allergy (Verified 02/21/24 11:57) HPI HPI Left L3 Sprint: Details: Patient presents for scheduled procedure. Denies any recent cough, cold, infection, fever or other significant changes in medical history since last office visit. [facility] Medical History (Updated 03/16/24 @ 10:28 by Garfield Quiles MD) Hypercalcemia Colon cancer screening Tubular adenoma Hypercholesterinemic xanthomatosis HTN (hypertension) Surgical History Hx of arthroscopic knee surgery History of total right hip arthroplasty Hx of colonoscopy Family History Father Colon cancer Mother Colon cancer Breast CA Social History Household Members: Spouse and Children Alcohol intake: current Alcohol intake frequency: holidays/special occasions only Patient Tobacco Use Status: Current everyday Tobacco user Tobacco use type: Cigarette Cigarette Packs Per Day: 0.5 Cigarettes Per Day: 10 Physical Exam Vital Signs: Last Vital Signs Pulse 79 03/16/24 09:50 BP 158/92 H 03/16/24 09:50 Pulse Ox 97 03/16/24 09:50 Oxygen Delivery Method Room Air 03/16/24 09:50 Office Procedures Details: Lumbar Medial Branch Nerve Stimulation Lead Placement, SPR (Sprint) System, Left L3 ? After the risks, benefits and alternatives were discussed with the patient and informed consent was obtained, patient was placed in the prone position and padded to foster comfort. The skin overlying the lumbosacral spine was prepped and draped in sterile fashion. Fluoroscopy was used to identify the spinous process and lamina in the center of the patient?s region of pain. After identifying and marking the intended target along the course of the medial branch nerve, the skin around the planned entry point and the subcutaneous tissues were injected with lidocaine 1%. An introducer needle and stimulating probe were assembled, inserted and advanced along the intended course of the medial branch nerve as it traverses the lamina medial and inferior to the zygapophyseal joint, taking care to maintain the proper depth of insertion as the introducer is advanced under fluoroscopic guidance. The introducer needle was delivered to a location in proximity to the nerve. Multiple stimulation parameters were used to deliver stimulation to the target medial branch nerve in concert with stimulating at multiple positions around the nerve. Nerve target acquisition was confirmed noting generation of paresthesias in the paravertebral regions corresponding to the level being stimulated. Various electrical parameter combinations were tested, and the lead location was adjusted (physically relocated) until the patient indicated paresthesia/muscle tension overlapping the distribution of the patient?s typical region of pain. The stimulating probe was removed from the introducer and a percutaneous lead was guided through the needle and delivered to a location in similar proximity to the nerve. Final location was verified with electrical stimulation and documented with fluoroscopy. The introducer needle was removed, and the exposed end of the percutaneous lead was attached to an external stimulator unit. Various electrical parameter combinations were again tested until the patient indicated paresthesia or muscle tension overlapping the distribution of the patient?s typical region of pain. After confirming that lead impedance was in the normal range, the external unit was detached, the needle was removed, and the lead was anchored at the skin. The lead was threaded into the connector block and electrical continuity and desired patient response was confirmed. The connector block was attached to the external stimulator unit. The site was covered with a sterile occlusive dressing. The patient was observed for stability of vital signs and comfort. Sprint PNS Device: Sprint PNS Device [id number] Percutaneous Peripheral Neuroelectrode Procedure: 18383 - Percutaneous Peripheral Neuroelectrode Procedure code (CPT) selection complete Office Meds lidocaine HCl 10 mg/mL (1 %) injection solution Performing Provider: Janie Dahl APRN, ANGELA Performing Location: [facility] Administered by: Yuliya Siegel LPN on 03/16/24 09:37 Dose Route Admin Location Dispensed Lot Number Expiration Date ND Craft Manager 5 mL subcut 5 mL Assessment & Plan Assessment & Plan (1) Dysfunction of the multifidus muscle of lumbar region: Code(s): M62.85 - Dysfunction of the multifidus muscles, lumbar region Category: Medical (2) Lumbar spondylosis: Code(s): M47.816 - Spondylosis without myelopathy or radiculopathy, lumbar region Category: Medical (3) Chronic low back pain: Code(s): M54.50 - Low back pain, unspecified; G89.29 - Other chronic pain Category: Medical Plan Patient is status post temporary left L3 medial branch nerve stimulator placement. Patient tolerated procedure well and was discharged home in stable condition with discharge instructions. All questions were answered. We will follow-up via telephone or in clinic to assess response to therapy. A follow-up appointment was made during today's visit. Orders: Orders FL guidance in treatment room Today M47.816 - Spondylosis without myelopathy or radiculopathy, lumbar region AMB Sprint PNS Today M47.816 - Spondylosis without myelopathy or radiculopathy, lumbar region Coding Level of Care Code Procedure Only Diagnoses Dysfunction of the multifidus muscle of lumbar region M62.85 Lumbar spondylosis M47.816 Chronic low back pain M54.50; G89.29 CPT Codes Sprint PNS - Sprint PNS Device: Sprint PNS Device ([id number]) Sprint PNS - SPRINT: 03257 - Percutaneous Peripheral Neuroelectrode ([id number]) Implantable Device Implantable Device Implantable Devices Qty Craft Manager Implant Date Expiration Date Analgesic PENS system 1 [email or web address] 03/16/24 06/08/25
[2024-03-16 09:50] VITALS: BP 158/92; PULSE 79; O2SAT 97
== END 2024-03-16 10:16 | disposition home or self-care (01) ==
LOC: HO.PMCPRC 09:15
PROVIDERS: PCP Internal Medicine; Visit Provider Internal Medicine
DX: M62.85 Dysfunction of the multifidus muscles, lumbar region (principal); M47.816 Spondylosis without myelopathy or radiculopathy, lumbar region; M54.50 Low back pain, unspecified; G89.29 Other chronic pain
CPT/HCPCS: 64555

== ENCOUNTER 2024-03-22 10:05 | Outpatient (AMB) | payer MEDICARE, OTHER, SELFPAY ==
--- NOTE | 2024-03-22 10:12 | MHC.OFFVIS ---
Vital Signs 03/22/24 10:14 Height 5 ft 5 in Weight 165 lb BMI 27.5 BP 180/88 H Blood Pressure Location Lt brachial Position Sitting Respiration 16 Pulse 82 Pulse Source Pulse Oximeter Pulse Oximetry (%) 97 Oxygen Delivery Method Room Air Intake Visit Reasons: s/p left L3 Sprint Allergies No Known Allergies Allergy (Verified 03/22/24 10:17) Medication List - Last Reconciled 03/22/24 by Yuliya Siegel LPN atorvastatin 20 mg PO BEDTIME cholecalciferol (vitamin D3) 25 mcg PO DAILY diazepam 5 mg PO ONCE PRN hydrochlorothiazide 25 mg PO DAILY potassium chloride ER (Klor-Con) 10 mEq PO DAILY valsartan 320 mg PO DAILY HPI HPI s/p left L3 Sprint: Details: 73-year-old female, who is accompanied today by his , for s/p left L3 Sprint. The patient reports no particular relief yet following the procedure. She has been running the device at an amplitude of 50 and feels that this has led to cramping of her muscles in her lower back and she feels the need to shut the device off after 6 hours. Past Procedures 03/16/24: Lumbar Medial Branch Nerve Stimulation Lead Placement, SPR (Sprint) System, Left L3: no initial relief. [facility] Medical History (Updated 03/16/24 @ 10:28 by Garfield Quiles MD) Hypercalcemia Colon cancer screening Tubular adenoma Hypercholesterinemic xanthomatosis HTN (hypertension) Surgical History Hx of arthroscopic knee surgery History of total right hip arthroplasty Hx of colonoscopy Family History Father Colon cancer Mother Colon cancer Breast CA Social History Household Members: Spouse and Children Alcohol intake: current Alcohol intake frequency: holidays/special occasions only Patient Tobacco Use Status: Current everyday Tobacco user Tobacco use type: Cigarette Cigarette Packs Per Day: 0.5 Cigarettes Per Day: 10 Review of Systems Const All systems reviewed & are unremarkable except as noted in HPI and below Physical Exam Vital Signs: Last Vital Signs Pulse 82 03/22/24 10:14 Resp 16 03/22/24 10:14 BP 180/88 H 12/18/24 10:14 Pulse Ox 97 03/22/24 10:14 Oxygen Delivery Method Room Air 03/22/24 10:14 BMI result Body Mass Index 27.5 General: Appears afebrile. Alert and oriented. Mood and affect appropriate. Follows and participates in conversation appropriately. Respiratory effort is unlabored. Able to transition from sit to stand unassisted. Ambulates with bilaterally normal heel strike and toe off. Lead insertion site is clean dry and intact. Results Reviewed Results Reviewed: 11/18/23: MRI OF THE LUMBAR SPINE WITHOUT IV CONTRAST FINDINGS: There are 5 nonrib-bearing lumbar-type vertebral bodies. Lumbar alignment is maintained. Marrow signal is diffusely heterogeneous. Modic type I endplate signal changes at L3-L4 and L4-L5. No additional bone marrow edema. No acute fractures. The vertebral body heights are maintained. There is severe disc volume loss at L4-L5 and there is mild disc volume loss of the remaining lumbar levels. There is disc desiccation at all lumbar levels. Conus terminates at the L1-L2 level. There is scattered colonic diverticulosis. There is paraspinal muscular atrophy bilaterally. Fatty filum terminale. L1-L2: Disc contour is normal. Mild bilateral facet arthropathy. No central canal stenosis and no foraminal stenosis. L2-L3: A left paracentral disc protrusion compresses the traversing left L3 nerve root within the left subarticular zone. [place] annular disc bulge and bilateral facet arthropathy and ligamentum flavum thickening. Mild central canal stenosis. L3-L4: Diffuse annular disc bulge that is in part disc osteophyte and severe bilateral facet arthropathy and ligamentum flavum thickening. Findings in concert result in moderate to severe central canal stenosis, bilateral subarticular zone stenosis with mass effect on the traversing L4 nerve roots bilaterally, and mild bilateral foraminal encroachment. L4-L5: Diffuse disc osteophyte complex and severe bilateral facet arthropathy and ligamentum flavum thickening. Findings in concert along with epidural lipomatosis moderately effaced the thecal sac. Left subarticular zone stenosis with mild mass effect on the traversing left L5 nerve root. Mild foraminal encroachment bilaterally. L5-S1: Diffuse disc osteophyte and advanced right-sided facet arthropathy. No foraminal stenosis. Narrowing of the right subarticular zone with mild mass effect on the traversing right S1 nerve root. IMPRESSION: * At L2-L3, a left paracentral disc protrusion compresses the traversing left L3 nerve root within the left subarticular zone. * At L3-L4, multifactorial degenerative changes result in moderate to severe central canal stenosis, bilateral subarticular zone stenosis with mass effect on the traversing L4 nerve roots bilaterally, and mild bilateral foraminal encroachment. Modic type I endplate signal changes at this level. * At L4-L5, multifactorial degenerative changes and epidural lipomatosis result in moderate thecal sac effacement and left subarticular zone stenosis with mild mass effect on the traversing left L5 nerve root. Modic type I endplate signal changes at this level. * At L5-S1, multifactorial degenerative changes result in right subarticular zone stenosis with mild mass effect on the traversing right S1 nerve root. Assessment & Plan Assessment & Plan (1) Chronic low back pain: Code(s): M54.50 - Low back pain, unspecified; G89.29 - Other chronic pain Category: Medical (2) Dysfunction of the multifidus muscle of lumbar region: Code(s): M62.85 - Dysfunction of the multifidus muscles, lumbar region Category: Medical (3) Lumbar spondylosis: Code(s): M47.816 - Spondylosis without myelopathy or radiculopathy, lumbar region Category: Medical Plan Discussed optimal usage of the device. Recommended lowering the settings to be able to tolerate for longer periods of time without over stimulation. Patient expressed understanding. Follow up in 2 weeks for right-sided placement. Scribed for Dr. Quiles by [employer] medical records library professor, on 03/22/2024. I, Dr. Quiles, have personally reviewed and agree with the information entered by the scribe. Coding Level of Care Code Est Pt Level 3 (28577) Diagnoses Chronic low back pain M54.50; G89.29 Dysfunction of the multifidus muscle of lumbar region M62.85 Lumbar spondylosis M47.816
[2024-03-22 10:14] VITALS: BP 180/88; PULSE 82; RESP 16; O2SAT 97; BMI 27.5
== END 2024-03-22 10:35 | disposition home or self-care (01) ==
PROVIDERS: PCP Internal Medicine; Visit Provider Internal Medicine
DX: M54.50 Low back pain, unspecified (principal); G89.29 Other chronic pain; M62.85 Dysfunction of the multifidus muscles, lumbar region; M47.816 Spondylosis without myelopathy or radiculopathy, lumbar region
CPT/HCPCS: 99024

== ENCOUNTER → 2024-03-22 10:05 | Outpatient (BNVA) | payer MEDICARE, OTHER, SELFPAY | PROVIDERS: PCP Internal Medicine; Visit Provider Internal Medicine | DX: M54.50 Low back pain, unspecified (principal); M62.85 Dysfunction of the multifidus muscles, lumbar region; M47.816 Spondylosis without myelopathy or radiculopathy, lumbar region; G89.29 Other chronic pain | CPT/HCPCS: 99212 ==

== ENCOUNTER 2024-04-06 08:48 | Outpatient (AMB) | payer MEDICARE, OTHER, SELFPAY ==
--- NOTE | 2024-04-06 08:51 | A.OFFVIS_ITS ---
Vital Signs 04/06/24 08:52 04/06/24 09:32 BP 197/85 H 178/85 H Blood Pressure Location Rt brachial Rt brachial Position Sitting Sitting Pulse 79 68 Pulse Source Pulse Oximeter Pulse Oximeter Pulse Oximetry (%) 98 98 Oxygen Delivery Method Room Air Room Air Intake Visit Reasons: Right L3 Sprint Allergies No Known Allergies Allergy (Verified 03/22/24 10:17) HPI HPI Right L3 Sprint: Details: Patient presents for scheduled procedure. Denies any recent cough, cold, infection, fever or other significant changes in medical history since last office visit. [facility] Medical History (Updated 03/16/24 @ 10:28 by Garfield Quiles MD) Hypercalcemia Colon cancer screening Tubular adenoma Hypercholesterinemic xanthomatosis HTN (hypertension) Surgical History Hx of arthroscopic knee surgery History of total right hip arthroplasty Hx of colonoscopy Family History Father Colon cancer Mother Colon cancer Breast CA Social History Household Members: Spouse and Children Alcohol intake: current Alcohol intake frequency: holidays/special occasions only Patient Tobacco Use Status: Current everyday Tobacco user Tobacco use type: Cigarette Cigarette Packs Per Day: 0.5 Cigarettes Per Day: 10 Physical Exam Vital Signs: Last Vital Signs Pulse 68 04/06/24 09:32 BP 178/85 H 04/06/24 09:32 Pulse Ox 98 04/06/24 09:32 Oxygen Delivery Method Room Air 04/06/24 09:32 Office Procedures Details: Lumbar Medial Branch Nerve Stimulation Lead Placement, SPR (Sprint) System, Right L3 ? After the risks, benefits and alternatives were discussed with the patient and informed consent was obtained, patient was placed in the prone position and padded to foster comfort. The skin overlying the lumbosacral spine was prepped and draped in sterile fashion. Fluoroscopy was used to identify the spinous process and lamina in the center of the patient?s region of pain. After identifying and marking the intended target along the course of the medial branch nerve, the skin around the planned entry point and the subcutaneous tissues were injected with lidocaine 1%. An introducer needle and stimulating probe were assembled, inserted and advanced along the intended course of the medial branch nerve as it traverses the lamina medial and inferior to the zygapophyseal joint, taking care to maintain the proper depth of insertion as the introducer is advanced under fluoroscopic guidance. The introducer needle was delivered to a location in proximity to the nerve. Multiple stimulation parameters were used to deliver stimulation to the target medial branch nerve in concert with stimulating at multiple positions around the nerve. Nerve target acquisition was confirmed noting generation of paresthesias in the paravertebral regions corresponding to the level being stimulated. Various electrical parameter combinations were tested, and the lead location was adjusted (physically relocated) until the patient indicated paresthesia/muscle tension overlapping the distribution of the patient?s typical region of pain. The stimulating probe was removed from the introducer and a percutaneous lead was guided through the needle and delivered to a location in similar proximity to the nerve. Final location was verified with electrical stimulation and documented with fluoroscopy. The introducer needle was removed, and the exposed end of the percutaneous lead was attached to an external stimulator unit. Various electrical parameter combinations were again tested until the patient indicated paresthesia or muscle tension overlapping the distribution of the patient?s typical region of pain. After confirming that lead impedance was in the normal range, the external unit was detached, the needle was removed, and the lead was anchored at the skin. The lead was threaded into the connector block and electrical continuity and desired patient response was confirmed. The connector block was attached to the external stimulator unit. The site was covered with a sterile occlusive dressing. The patient was observed for stability of vital signs and comfort. Sprint PNS Device: Sprint PNS Device [id number] Percutaneous Peripheral Neuroelectrode Procedure: 64297 - Percutaneous Peripheral Neuroelectrode Procedure code (CPT) selection complete Office Meds lidocaine HCl 10 mg/mL (1 %) injection solution Performing Provider: Janie Dahl APRN, ANGELA Performing Location: [facility] Administered by: Yuliya Siegel LPN on 04/06/24 09:13 Dose Route Admin Location Dispensed Lot Number Expiration Date ND Blanking Press Operator 5 mL subcut 5 mL Assessment & Plan Assessment & Plan (1) Chronic low back pain: Code(s): M54.50 - Low back pain, unspecified; G89.29 - Other chronic pain Category: Medical (2) Dysfunction of the multifidus muscle of lumbar region: Code(s): M62.85 - Dysfunction of the multifidus muscles, lumbar region Category: Medical (3) Lumbar spondylosis: Code(s): M47.816 - Spondylosis without myelopathy or radiculopathy, lumbar region Category: Medical Plan Patient is status post right L3 medial branch temporary nerve stimulator placement. Patient tolerated procedure well and was discharged home in stable condition with discharge instructions. All questions were answered. We will follow-up via telephone or in clinic to assess response to therapy. A follow-up appointment was made during today's visit. Orders: Orders FL guidance in treatment room Today M47.816 - Spondylosis without myelopathy or radiculopathy, lumbar region AMB Sprint PNS Today M47.816 - Spondylosis without myelopathy or radiculopathy, lumbar region Coding Level of Care Code Procedure Only Diagnoses Chronic low back pain M54.50; G89.29 Dysfunction of the multifidus muscle of lumbar region M62.85 Lumbar spondylosis M47.816 CPT Codes Sprint PNS - Sprint PNS Device: Sprint PNS Device ([id number]) Sprint PNS - SPRINT: 25729 - Percutaneous Peripheral Neuroelectrode ([id number]) Implantable Device Implantable Device Implantable Devices Qty Blanking Press Operator Implant Date Expiration Date Analgesic PENS system 1 [employer] 03/16/24 06/08/25 Analgesic PENS system 1 [employer] 04/06/24 11/17/25
[2024-04-06 08:52] VITALS: BP 197/85; PULSE 79; O2SAT 98
[2024-04-06 09:32] VITALS: BP 178/85; PULSE 68; O2SAT 98
== END 2024-04-06 09:36 | disposition home or self-care (01) ==
LOC: HO.PMCPRC 08:48
PROVIDERS: PCP Internal Medicine; Visit Provider Internal Medicine
DX: M54.50 Low back pain, unspecified (principal); G89.29 Other chronic pain; M62.85 Dysfunction of the multifidus muscles, lumbar region; M47.816 Spondylosis without myelopathy or radiculopathy, lumbar region
CPT/HCPCS: 64555

== ENCOUNTER 2024-04-12 11:14 | Outpatient (AMB) | payer MEDICARE, OTHER, SELFPAY ==
--- NOTE | 2024-04-12 11:23 | MHC.OFFVIS ---
Vital Signs 04/12/24 11:25 Height 5 ft 5 in Weight 165 lb BMI 27.5 BP 198/98 H Blood Pressure Location Lt brachial Position Sitting Respiration 16 Pulse 85 Pulse Source Pulse Oximeter Pulse Oximetry (%) 95 Oxygen Delivery Method Room Air Intake Visit Reasons: Right Sprint removal Allergies No Known Allergies Allergy (Verified 04/12/24 11:27) Medication List - Last Reconciled 04/12/24 by Yuliya Sigeel LPN atorvastatin 20 mg PO BEDTIME cholecalciferol (vitamin D3) 25 mcg PO DAILY diazepam 5 mg PO ONCE PRN hydrochlorothiazide 25 mg PO DAILY potassium chloride ER (Klor-Con) 10 mEq PO DAILY valsartan 320 mg PO DAILY HPI HPI Right Sprint removal: Details: 73-year-old female presenting for right-sided sprint device placement follow-up. She feels that the right side has not been getting the level of stimulation that her left side has been getting. She has experienced good pain relief on the left side but due to lack of stimulation in the right side, she has yet to feel any difference. In the office today I increased the stimulation intensity up to 90 but she was unable to get a response on the right side. [facility] Medical History (Updated 03/16/24 @ 10:28 by Garfield Quiles MD) Hypercalcemia Colon cancer screening Tubular adenoma Hypercholesterinemic xanthomatosis HTN (hypertension) Surgical History Hx of arthroscopic knee surgery History of total right hip arthroplasty Hx of colonoscopy Family History Father Colon cancer Mother Colon cancer Breast CA Social History Household Members: Spouse and Children Alcohol intake: current Alcohol intake frequency: holidays/special occasions only Patient Tobacco Use Status: Current everyday Tobacco user Tobacco use type: Cigarette Cigarette Packs Per Day: 0.5 Cigarettes Per Day: 10 Physical Exam Vital Signs: Last Vital Signs Pulse 85 04/12/24 11:25 Resp 16 04/12/24 11:25 BP 198/98 H 04/12/24 11:25 Pulse Ox 95 04/12/24 11:25 Oxygen Delivery Method Room Air 01/08/25 11:25 BMI result Body Mass Index 27.5 On exam today: Appears afebrile. Alert and oriented. Mood and affect appropriate. Follows and participates in conversation appropriately. Respiratory effort is unlabored. Able to transition from sit to stand unassisted. Ambulates with bilaterally normal heel strike and toe off. Able to stand and walk on toes and heels. Lead insertion sites are clean dry and intact. Assessment & Plan Assessment & Plan (1) Lumbar spondylosis: Code(s): M47.816 - Spondylosis without myelopathy or radiculopathy, lumbar region Category: Medical (2) Dysfunction of the multifidus muscle of lumbar region: Code(s): M62.85 - Dysfunction of the multifidus muscles, lumbar region Category: Medical (3) Chronic low back pain: Code(s): M54.50 - Low back pain, unspecified; G89.29 - Other chronic pain Category: Medical Plan Unfortunately Jeanine has not had appropriate device response on the right side. Based on our exam today it appears that her right-sided lead is not in the appropriate position. We discussed potentially replacing it at the same time that the left 1 is supposed to come out. We will schedule her for a right-sided lead replacement at the time of the left lead removal. Patient expressed understanding and is on board with the plan. Coding Level of Care Code Est Pt Level 3 (81101) Diagnoses Lumbar spondylosis M47.816 Dysfunction of the multifidus muscle of lumbar region M62.85 Chronic low back pain M54.50; G89.29
[2024-04-12 11:25] VITALS: BP 198/98; PULSE 85; RESP 16; O2SAT 95; BMI 27.5
== END 2024-04-12 11:56 | disposition home or self-care (01) ==
PROVIDERS: PCP Internal Medicine; Visit Provider Internal Medicine
DX: M47.816 Spondylosis without myelopathy or radiculopathy, lumbar region (principal); M62.85 Dysfunction of the multifidus muscles, lumbar region; M54.50 Low back pain, unspecified; G89.29 Other chronic pain
CPT/HCPCS: 99024

== ENCOUNTER → 2024-04-12 11:14 | Outpatient (BNVA) | payer MEDICARE, OTHER, SELFPAY | PROVIDERS: PCP Internal Medicine; Visit Provider Internal Medicine | DX: M47.816 Spondylosis without myelopathy or radiculopathy, lumbar region (principal); M62.85 Dysfunction of the multifidus muscles, lumbar region; M54.50 Low back pain, unspecified; G89.29 Other chronic pain | CPT/HCPCS: 99212 ==

== ENCOUNTER 2024-05-08 11:51 | Outpatient (AMB) | payer MEDICARE, OTHER, SELFPAY ==
--- NOTE | 2024-05-08 11:53 | MHC.OFFVIS ---
Vital Signs 05/08/24 11:54 Height 5 ft 5 in Weight 166 lb BMI 27.6 BP 166/88 H Blood Pressure Location Lt brachial Position Sitting Respiration 16 Pulse 93 Pulse Source Pulse Oximeter Pulse Oximetry (%) 97 Oxygen Delivery Method Room Air Intake Visit Reasons: Sprint Removal/Discuss Alternate Procedure Options Milk Treater Required: No Allergies No Known Allergies Allergy (Verified 05/08/24 11:57) Medication List - Last Reconciled 05/08/24 by Yuliya Siegel LPN atorvastatin 20 mg PO BEDTIME cholecalciferol (vitamin D3) 25 mcg PO DAILY diazepam 5 mg PO ONCE PRN hydrochlorothiazide 25 mg PO DAILY potassium chloride ER (Klor-Con) 10 mEq PO DAILY valsartan 320 mg PO DAILY HPI HPI Sprint Removal/Discuss Alternate Procedure Options: Details: History of Present Illness The patient is a 73-year-old female presenting with chronic low back pain. She reports difficulty with activities such as climbing stairs, standing at the kitchen sink, and walking. The pain started gradually and has been persistent. She describes feeling crooked and experiencing a weakness sensation in the legs. The pain is not significantly radiating, but sometimes the legs feel weak, which she associates with feeling nervous. Previous interventions were discussed, including consideration of epidural steroid injections and minimally invasive lumbar decompression for lumbar spinal stenosis, but she expresses a preference for avoiding invasive spinal surgery. Although MRI findings suggest vertebrogenic low back pain, physical examination findings are inconsistent with this as the primary source. Past treatment includes a trial with medial branch stimulation devices which yielded partial relief. The patient has osteoporosis, which influences treatment decisions regarding the use of cortisone injections. Pain Description - Pain exacerbates with climbing stairs, prolonged standing, and walking. - Relief is noted when sitting down. - Quality of pain includes a sensation of being crooked without significant radiation. - Weakness in the legs at times, particularly noted with stress or nervousness. - Activities of daily living are impacted, especially walking and standing. Physical Exam - Musculoskeletal- Pain reported with lumbar flexion and during walking. - No reported exacerbation with bending forward or twisting side to side. Results - MRI: Findings suggestive of vertebrogenic low back pain and lumbar spinal stenosis. Pain Management - Affect: Reports feeling crooked and having an impact on daily activities and mobility. - Analgesia: Currently discussing the efficacy of epidural steroid injections and minimally invasive procedures. - Adverse Effects: Concerns about osteoporosis and potential side effects of corticosteroid injections. - Activities of Daily Living: Significant impact on mobility, especially with walking and standing for extended periods. - Aberrant Drug Related Behaviors: No aberrant behaviors reported. COUNTS INCLUDE 234 BEDS AT THE [facility] Medical History (Updated 05/16/24 @ 16:27 by Garfield Quiles MD) Hypercalcemia Colon cancer screening Tubular adenoma Hypercholesterinemic xanthomatosis HTN (hypertension) Surgical History Hx of arthroscopic knee surgery History of total right hip arthroplasty Hx of colonoscopy Family History Father Colon cancer Mother Colon cancer Breast CA Social History Household Members: Spouse and Children Alcohol intake: current Alcohol intake frequency: holidays/special occasions only Patient Tobacco Use Status: Current everyday Tobacco user Tobacco use type: Cigarette Cigarette Packs Per Day: 0.5 Cigarettes Per Day: 10 Physical Exam Vital Signs: Last Vital Signs Pulse 93 05/08/24 11:54 Resp 16 05/08/24 11:54 BP 166/88 H 05/08/24 11:54 Pulse Ox 97 05/08/24 11:54 Oxygen Delivery Method Room Air 05/08/24 11:54 BMI result Body Mass Index 27.6 Assessment & Plan Assessment & Plan (1) Lumbar degenerative disc disease: Code(s): M51.36 - Other intervertebral disc degeneration, lumbar region Category: Medical (2) Lumbar radicular pain: Code(s): M54.16 - Radiculopathy, lumbar region Category: Medical (3) Lumbar spinal stenosis: Code(s): M48.061 - Spinal stenosis, lumbar region without neurogenic claudication Category: Medical Plan Plan - Plan for an L2-3 interlaminar epidural steroid injection for pain management associated with lumbar spinal stenosis and radiculitis. - Consideration of minimally invasive lumbar decompression if the patient's symptoms align more classically with spinal stenosis symptoms. - Avoidance of repeated corticosteroid injections due to osteoporosis and potential adverse effects, aiming for non-surgical management options as primary treatment. Patient was informed and verbally consented to the use of an ambient scribe for clinic note documentation during this visit. Discussion Notes During the visit, I reviewed the patient's MRI findings which indicate vertebrogenic low back pain and lumbar spinal stenosis. We discussed the possibility of an L2-3 interlaminar epidural steroid injection as the next step in managing her lumbar radiculitis symptoms. The patient was informed about the procedure's potential for temporary relief and the possibility of repeated injections based on response. I explained the potential side effects of cortisone, particularly in the context of her osteoporosis, and recommended a cautious approach. We also discussed minimally invasive lumbar decompression as a less extensive option than spinal fusion if mobility issues persist. The patient consented to proceed with the epidural steroid injection plan once insurance approval is obtained. Patient Instructions - Follow up with scheduling for the L2-3 interlaminar epidural steroid injection. - Monitor for any changes in symptoms or significant pain exacerbations and report if necessary. - Consideration of minimally invasive lumbar decompression if pain persists and affects quality of life. - Avoid activities that exacerbate back pain, and focus on gentle exercises as tolerated. - Follow osteoporosis management strategies to maintain bone health. Coding Level of Care Code Est Pt Level 4 (11999) Diagnoses Lumbar degenerative disc disease M51.36 Lumbar radicular pain M54.16 Lumbar spinal stenosis M48.061
[2024-05-08 11:54] VITALS: BP 166/88; PULSE 93; RESP 16; O2SAT 97; BMI 27.6
== END 2024-05-08 12:26 | disposition home or self-care (01) ==
PROVIDERS: PCP Internal Medicine; Visit Provider Internal Medicine
DX: M51.369 Other intervertebral disc degeneration, lumbar region without mention of lumbar back pain or lower extremity pain (principal); M54.16 Radiculopathy, lumbar region; M48.061 Spinal stenosis, lumbar region without neurogenic claudication
CPT/HCPCS: 99214

== ENCOUNTER → 2024-05-08 11:51 | Outpatient (BNVA) | payer MEDICARE, OTHER, SELFPAY | PROVIDERS: PCP Internal Medicine; Visit Provider Internal Medicine | DX: M51.360 Other intervertebral disc degeneration, lumbar region with discogenic back pain only (principal); M54.16 Radiculopathy, lumbar region; M48.061 Spinal stenosis, lumbar region without neurogenic claudication | CPT/HCPCS: 99212 ==

== ENCOUNTER 2024-07-06 07:47 | Outpatient (REF) | payer MEDICARE, OTHER, SELFPAY ==
--- NOTE | ~2024-07-06 | FL_ITS ---
EXAMINATION: FL GUIDANCE ONLY HISTORY: M48.061 - Spinal stenosis, lumbar region without neurogenic claudication COMPARISON: None available. TECHNIQUE: Fluoroscopy time: 0.1 minutes. Cumulative Dose: 2.10 mGy. DAP: 0.0143 mGym2 Images: 2. FINDINGS: Images demonstrate a needle and contrast material overlying a lumbar vertebral body. FL/FL guidance in treatment room IMPRESSION: Fluoroscopy during procedure. Please see procedure report for additional information. Electronically signed by: Arya Caballero MD 07/06/2024 03:03 PM EDT
--- OUTSIDE RECORDS SUMMARY | 2024-07-06 07:52 | XMS_ITS ---
Author Organization Alexandro Perez MD Address [address] [place] [phone] Care Team Providers Care Rod Straightener Name Role Phone Alexandro Perez Primary Care Provider REASON FOR VISIT New Refill Request Medications Medication SIG (Take, Route, Fr equency, Duration) Notes Start Date End Date Status LORazepam 0.5 MG 1 tablet at bedtime as needed Orally Once a day for 10 days 05/09/2024 Ac tive Encounters Encounter Location Date Provider Diagnosis Alexandro Perez MD 10 [facility] [address] [place] [phone] 05/09/2024 Alexandro Perez Plan Of Treatment Medication Medication Name Sig Start Date Stop Date Notes LORazepam 0.5 MG 1 tablet at bedtime as needed Orally Once a day for 10 days 05/09/2024 Next Appt Details Provider Name:Alexandro reyes, 07/11/2024 07:15:00 AM, [address] [place] [address], [address] [place] [address], [phone], Provider Name:Alexandro reyes, 07/18/2024 10:30:00 AM, [address] [place] [address], [address], [phone], Progress Notes * Jeanine BACON TDOB: 2 (73 yo F)Acc No.[id number]:05/09/2024 Patient:?Jeanine BACON :1950???Age:73 Y???Sex:Female Address:[address] [place] [phone] * Refills? Refill LORazepam Tablet, 0.5 MG, Orally, 10 Tablet, 1 tablet at bedtime as needed, Once a day, 10 days, Refills=0 * true * Date:? Generated for Sahil dodd/Carmen/eTsheebasmitting on:?07/06/2024 07:51 AM EDT
--- OUTSIDE RECORDS SUMMARY | 2024-07-06 07:52 | XMS_ITS ---
Author Organization Alexandro Perez MD Address [address] [place] [phone] Care Team Providers Care Director Power Name Role Phone Alexandro Perez Primary Care Provider [phone] Encounters Encounter Location Date Provider Diagnosis Alexandro Perez MD 10 [facility] [address] [place] [phone] 04/07/2024 Alexandro Perez Plan Of Treatment Next Appt Details Provider Name:Alexandro reyes, 07/11/2024 07:15:00 AM, [address] [place] [address], [address], [phone], Provider Name:Alexandro Brink ieashli, 07/18/2024 10:30:00 AM, [address] [place] [address], [address] [place] [address], [phone], Progress Notes * Jeanine BACON TDOB: 2 (73 yo F)Acc No.[id number]:04/07/2024 Patient:?Jeanine Bacon :1950???Age:73 Y???Sex:Female Address:[address] [place] [phone] * true * Date:? Generated for Sahil dodd/Carmen/Genarosmitting on:?07/06/2024 07:51 AM EDT
--- OUTSIDE RECORDS SUMMARY | 2024-07-06 07:52 | XMS_ITS ---
Author Organization Alexandro Perez MD Address [address] [place] [phone] Care Team Providers Care Nurse Staff [facility] Name Role Phone Alexandro Perez Primary Care Provider REASON FOR VISIT Calcium Encounters Encounter Location Date Provider Diagnosis Alexandro Perze MD [address] [place] [phone] 04/17/2024 Alexandro Perez Hypercalcemia E83.52 Assessments Encounter Date Diagnosis (ICD Code) Assessment Notes Treatment Notes Treatment Clinical Notes Section Notes 04/17/2024 Hypercalcemia (ICD-10 - E83.52) Plan Of Treatment Pending Test Test Name Order Date Calcium 04/17/2024 Next Appt Details Provider Name:Alexandro Brink ier, 07/11/2024 07:15:00 AM, 10 [facility], [address] [place] [address], [phone], Provider Name:Alexandro reyes, 07/18/2024 10:30:00 AM, 10 [facility], [address] [place] [address], [phone], Progress Notes * Jeannie BACON TDOB: 2 (73 yo F)Acc No.[id number]:04/17/2024 Progress Note Patient:Jeanine MARQUEZ Provider:?Aleaxndro Perez MD :1950???Age:73 Y???Sex:Female D ate:04/17/2024 Address:[address] [place] [address] [id number] Subjective: * Chief Complaints: * ???1. Calcium. * Medical History:? Objective: * Vitals:? Assessment: * Assessment: 1.?Hypercalcemia - E83.52??? Plan: * Treatment: * * The named appointment provid er may or may not be the originator of this progress note, and it is not deemed complete until electronically signed by the appointment provider. Sign off status: Pending * Provider:?Alexandro Perez MD Date:?0 04/17/2024 Generated for Sahil dodd/Carmen/Sriitting on:?07/06/2024 07:51 AM EDT
== END 2024-07-06 07:48 | disposition home or self-care (01) ==
LOC: CF 07:47
PROVIDERS: Visit Provider Internal Medicine
DX: M47.26 Other spondylosis with radiculopathy, lumbar region (principal); M54.50 Low back pain, unspecified; G89.29 Other chronic pain
CPT/HCPCS: 62323; J2003; J3301; Q9967

== ENCOUNTER 2024-07-06 09:23 | Outpatient (AMB) | payer MEDICARE, OTHER, SELFPAY ==
[2024-07-06 09:28] VITALS: BP 195/91; PULSE 69; RESP 16; O2SAT 99
--- NOTE | 2024-07-06 09:28 | MHC.OFFVIS ---
Vital Signs 07/06/24 09:28 BP 195/91 H Blood Pressure Location Lt brachial Position Sitting Respiration 16 Pulse 69 Pulse Source Pulse Oximeter Pulse Oximetry (%) 99 Oxygen Delivery Method Room Air Intake Visit Reasons: L2-L3 interlaminar FRANK Hotel Services Supervisor Required: No Allergies No Known Allergies Allergy (Verified 07/06/24 09:29) Medication List - Last Reconciled 07/06/24 by Yuliya Siegel LPN atorvastatin 20 mg PO BEDTIME cholecalciferol (vitamin D3) 25 mcg PO DAILY diazepam 5 mg PO ONCE PRN hydrochlorothiazide 25 mg PO DAILY lorazepam (Ativan) 1 mg PO ONCE potassium chloride ER (Klor-Con) 10 mEq PO DAILY valsartan 320 mg PO DAILY HPI HPI L2-L3 interlaminar FRANK: Details: Patient presents for scheduled procedure. Denies any recent cough, cold, infection, fever or other significant changes in medical history since last office visit. [facility] Medical History (Updated 05/16/24 @ 16:27 by Garfield Quiles MD) Hypercalcemia Colon cancer screening Tubular adenoma Hypercholesterinemic xanthomatosis HTN (hypertension) Surgical History Hx of arthroscopic knee surgery History of total right hip arthroplasty Hx of colonoscopy Family History Father Colon cancer Mother Colon cancer Breast CA Social History Household Members: Spouse and Children Alcohol intake: current Alcohol intake frequency: holidays/special occasions only Patient Tobacco Use Status: Current everyday Tobacco user Tobacco use type: Cigarette Cigarette Packs Per Day: 0.5 Cigarettes Per Day: 10 Physical Exam Vital Signs: Last Vital Signs Pulse 69 07/06/24 09:28 Resp 16 07/06/24 09:28 BP 195/91 H 07/06/24 09:28 Pulse Ox 99 07/06/24 09:28 Oxygen Delivery Method Room Air 07/06/24 09:28 Office Procedures AMB Joint Injection/Aspiration Joint Injection/Aspiration Details: Interlaminar epidural steroid injection, L2/3, Left parasaggital/midline After obtaining written consent, pre-procedure blood pressure and heart rate were stable and recorded in the nursing record. The patient was placed in the prone position. The lumbar area was widely prepped with chloraprep and draped in sterile fashion. Fluoroscopic guidance was used to identify the desired interlaminar space and for needle placement. Subcutaneous 0.5% lidocaine was used to anesthetize the skin overlying the target. A 20-gauge Mercedes needle was advanced to the epidural space using loss of resistance to contrast technique under fluoroscopic AP and contralateral oblique views. There was no evidence of heme or CSF and no paresthesias were elicited with needle placement. Confirmation of epidural needle placement was performed with 1cc of omnipaque 180. Next 3 ml 0.5% lidocaine mixed with 80 mg triamcinilone was administered epidurally with no pain elicited on injection. The needle tract tubing was then cleared with 1 ml of 0.5% lidocaine. The needle was removed, skin cleansed and a sterile bandage was applied. The patient tolerated the procedure well and no complications were encountered. Following the procedure the patient's vital signs were stable. The patient was discharged home in good condition with post-procedural instructions. Time Out: Immediately prior to the procedure, the following was verbally confirmed that there is a signed consent form and that the correct patient, planned procedure, site and side are consistent with documentation and that necessary equipment and/or blood products are available prior to the start of the case. Complications: none EBL: <2 cc Coding Procedure code (CPT) selection complete Assessment & Plan Assessment & Plan (1) Lumbar radicular pain: Code(s): M54.16 - Radiculopathy, lumbar region Category: Medical (2) Chronic low back pain: Code(s): M54.50 - Low back pain, unspecified; G89.29 - Other chronic pain Category: Medical Plan Patient is status post L2/3 interlaminar FRANK. Patient tolerated procedure well and was discharged home in stable condition with discharge instructions. All questions were answered. We will follow-up via telephone or in clinic to assess response to therapy. A follow-up appointment was made during today's visit. Orders: Orders FL guidance in treatment room Today M48.061 - Spinal stenosis, lumbar region without neurogenic claudication Coding Level of Care Code Procedure Only Diagnoses Lumbar radicular pain M54.16 Chronic low back pain M54.50; G89.29
--- OUTSIDE RECORDS SUMMARY | 2024-07-06 09:54 | XMS_ITS | Patient Health Record ---
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 Role Phone Alexandro Perez Primary Care Provider Allergies No Known Allergies Results Component Value Reference Range Notes Complete Blood Count Auto Di ff Reviewed date:10/14/2023 04:25:46 PM Interpretation: Performing Lab:[facility], [address] [place] [phone] Notes/Report: White Blood Count 7.5 4.8-10.8 X10*3/uL Red Blood Count 4.52 4.20-5.50 X10*6/uL Hemoglobin 15.3 12.0-16.0 g/dl Hematocrit 45.2 37.0-47.0 % Mean Corpuscular Volume 100.0 80.0-98.0 fL Mean Corpuscular Hemoglobin 33.8 27.0-33.0 pg Mean Corpuscular HGB Conc 33.8 31.0-35.0 g/dl Red Cell Distribution Width 13.5 11.0-16.0 % Platelet Count 354 160-400 X10*3/uL Mean Platelet Volume 9.8 9.4-12.3 fL Neutrophils Percent Auto 66.2 45-73 % Imm Gran Pct Auto 0.3 0.0-0.4 % Lymphocytes Percent Auto 24.0 20-40 % Monocytes Percent Auto 7.9 2-11 % Eosinophils Percent Auto 0.8 0-4 % Basophils Percent Auto 0.8 0-2 % NRBC Pct Auto 0.0 0.0-0.2 /100WBC Neutrophils Absolute Auto 5.0 2.0-8.3 x10*3/u L Imm Gran Abs Auto 0.02 0.00-0.03 X10*3/uL Lymphocytes Absolute Auto 1.8 1.2-4.9 X10*3/u L Monocytes Absolute Auto 0.6 0.1-1.2 X10*3/uL Eosinophils Absolute Auto 0.1 0.0-0.4 X10*3/u L Basophils Absolute Auto 0.1 0.0-0.2 X10*3/uL NRBC Abs Auto 0.000 0.0-0.012 X10*3/uL Comprehensive [place]. Panel Fa st Reviewed date:10/15/2023 08:03:14 AM Interpretation: Performing Lab:[facility], [address] [place] [phone] Notes/Report: Sodium 141 135-145 mmol/L Potassium 3.4 3.3-5.1 mmol/L Chloride 107 96-108 mmol/L Carbon Dioxide 23 22-29 mmol/L Anion Gap 14 12-20 Blood Urea Nitrogen 9 9-16 mg/dL Creatinine 0.70 0.5-1.4 mg/dL Estimated Glomerular Filt Rate > 60 NOTE: For -J[place] individuals, multiply the result by 1.210. Chronic Kidney Disease: Estimated GFR < 60 mL/min/1.73m2 Severe Kidney Disease: Estimated GFR < 15 mL/min/1.73m2 Glucose Fasting 122 60-99 mg/dL A fasting glucose from 100-125 mg/dl is considered impaired (pre-diabetes). Calcium 11.2 8.4-10.2 mg/dL Bilirubin Total 0.6 0.0-1.0 mg/dL Aspartate Amino Transferase 24 5-31 U/L Alanine Aminotransferase 22 0-31 U/L Total Protein 7.1 6.5-8.0 g/dL Albumin Level 4.3 3.5-5.0 g/dL Alkaline Phosphatase 48 39-117 U/L Calcium Reviewed date:10/18/2023 06:01:46 PM Interpretation: Performing Lab:[facility], [address] [place] [address] Notes/Report: Calcium 11.4 8.4-10.2 mg/dL Parathyroid Hormone Intact Reviewed date:10/18/2023 02:33:09 PM Interpretation: Performing Lab:[facility], [address] [place] [address] Notes/Report: Parathyroid Hormone Intact 54.6 8.7-77.1 pg/mL MR lumbar spine wo con Reviewed date:11/29/2023 04:15:46 PM Interpretation: Performing Lab: Notes/Report: [facility] [address] [facility] [place] [place] [address] Magnetic Resonance Report Signed Patient: Jeanine Epps MR#: [id number] 67 : 1950 Acct:[id number] Age/Sex: 73 / F ADM Date: 11/18/23 Loc: HO.MRI Attending Dr: Alexandro Perez MD Ordering Physician: Alexandro Perez MD Date of Service: 11/18/23 Procedure(s): MR lumbar spine wo con Accession Number(s): [id number] cc: Alexandro Perez MD MRI OF THE LUMBAR SPINE WITHOUT IV CONTRAST CLINICAL INFORMATION: Spinal stenosis. COMPARISON: None available. TECHNIQUE: Multiplanar multisequence MR imaging of the lumbar spine obtained without contrast. FINDINGS: There are 5 nonrib-bearing lumbar-type vertebral bodies. Lumbar alignment is maintained. Marrow signal is diffusely heterogeneous. Modic type I endplate signal changes at L3-L4 and L4-L5. No additional bone marrow edema. No acute fractures. The vertebral body heights are maintained. There is severe disc volume loss at L4-L5 and there is mild disc volume loss of the remaining lumbar levels. There is disc desiccation at all lumbar levels. Conus terminates at the L1-L2 level. There is scattered colonic diverticulosis. There is paraspinal muscular atrophy bilaterally. Fatty filum terminale. L1-L2: Disc contour is normal. Mild bilateral facet arthropathy. No central canal stenosis and no foraminal stenosis. L2-L3: A left paracentral disc protrusion compresses the traversing left L3 nerve root within the left subarticular zone. [place] annular disc bulge and bilateral facet arthropathy and ligamentum flavum thickening. Mild central canal stenosis. L3-L4: Diffuse annular disc bulge that is in part disc osteophyte and severe bilateral facet arthropathy and ligamentum flavum thickening. Findings in concert result in moderate to severe central canal stenosis, bilateral subarticular zone stenosis with mass effect on the traversing L4 nerve roots bilaterally, and mild bilateral foraminal encroachment. L4-L5: Diffuse disc osteophyte complex and severe bilateral facet arthropathy and ligamentum flavum thickening. Findings in concert along with epidural lipomatosis moderately effaced the thecal sac. Left subarticular zone stenosis with mild mass effect on the traversing left L5 nerve root. Mild foraminal encroachment bilaterally. L5-S1: Diffuse disc osteophyte and advanced right-sided facet arthropathy. No foraminal stenosis. Narrowing of the right subarticular zone with mild mass effect on the traversing right S1 nerve root. MR/MR lumbar spine wo con IMPRESSION: * At L2-L3, a left paracentral disc protrusion compresses the traversing left L3 nerve root within the left subarticular zone. * At L3-L4, multifactorial degenerative changes result in moderate to severe central canal stenosis, bilateral subarticular zone stenosis with mass effect on the traversing L4 nerve roots bilaterally, and mild bilateral foraminal encroachment. Modic type I endplate signal changes at this level. * At L4-L5, multifactorial degenerative changes and epidural lipomatosis result in moderate thecal sac effacement and left subarticular zone stenosis with mild mass effect on the traversing left L5 nerve root. Modic type I endplate signal changes at this level. * At L5-S1, multifactorial degenerative changes result in right subarticular zone stenosis with mild mass effect on the traversing right S1 nerve root. Electronically signed by: Shashi Hopkins MD 11/29/2023 01:55 PM EDT Dictated By: Shashi Hopkins MD Signed By: <Electronically signed by Shashi Hopkins MD in OV> 11/29/23 3575 DD/ 171 TD/TT: 11/18/23 171 Food Order Expediter: [address] [id number] Magnetic Resonance Report Signed Patient: Eugenia Epps MR#: [id number] 67 : 1950 Acct:[id number] Age/Sex: 73 / F ADM Date: 11/18/23 Loc: HO.MRI Attending Dr: Alexandro Perez MD Ordering Physician: Alexandro Perez MD Date of Service: 11/18/23 Procedure(s): MR lum bar spine wo con Accession Number(s): [id number] cc: Alexandro Perez MD MRI OF THE LUMBAR SP INE WITHOUT IV CONTRAST CLINICAL INFORMATION: Spinal stenosis. COMPARISON: None available. TECHNIQUE: Multiplanar multisequence MR imaging of the lumbar spine obtained without contrast. FINDINGS: There are 5 nonrib-bearing lumbar-type vertebral bodies. Lumbar alignment is maintained. Marrow signal is diffusely heterogeneous. Modic type I endplat e signal changes at L3-L4 and L4-L5. No additional bone marrow edema. N o acute fractures. The vertebral body heights are maintained. There is severe disc volume loss at L4-L5 and there is mild disc volume loss of the remaining lumbar levels. There is disc desiccation at all lumbar levels. Conus terminates at the L1-L2 level. There is scattered colonic diverticulosis. There is paraspinal muscular atrophy bilaterally. Fatty filum terminale. L1-L2: Disc contour is normal. Mild bilateral facet arthropathy. No central canal stenos is and no foraminal stenosis. L2-L3: A left paracentral disc protrusion compresses the traversing left L3 nerve root within the left subarticular zone. [place] annular disc bulge and bilateral facet arthropathy and ligamentum flavum thickening. Mild central canal stenosis. L3-L4: Diffuse annul ar disc bulge that is in part disc osteophyte and severe bilateral fac et arthropathy and ligamentum flavum thickening. Findings in concert result in moderate to severe central canal stenosis, bilateral subarticular zone stenosis with mass effect on the traversing L4 nerve roots bilaterally, and mild bilateral foraminal encroachment. L4-L5: Diffuse disc osteophyte complex and severe bilateral facet arthropathy and ligamentum flavum thickening. Findings in concert along with epidural lipomatosis moderately effaced the thecal sac. Left subarticular zone stenosis with mild mass effect on the traversing left L5 nerve root. Mild foraminal encroachment bilaterally. L5-S1: Diffuse disc osteophyte and advanced right-sided facet arthropathy. No foraminal stenosis. Narrowing of the right subarticular zone with mild mass effect on the traversing right S1 nerve root. MR/MR lumbar spine wo con IMPRESSION: * At L2-L3, a left paracentral disc protrusion compresses the traversing left L3 nerve root within the left subarticular zone. * At L3-L4, multifactorial degenerative changes result in moderate to severe central canal stenosis, bilateral subarticular zone stenosis with mass effect on the traversing L4 nerve roots bilaterally, and mild bilateral foraminal encroachment. Modic type I endplate signal changes at this level. * At L4-L5, multifactorial degenerative changes and epidural lipomatosis result i n moderate thecal sac effacement and left subarticular zone stenosis with mild mass effect on the traversing left L5 nerve root. Modic type I endplate signal changes at this level. * At L5-S1, multifactorial degenerative changes result in right subarticular zone stenosis with mild mass effect on the traversing right S1 nerve root. Electronically jason d by: Shashi Hopkins MD 11/29/2023 01:55 PM EDT RP Dictated By: Shashi Hopkins MD Signed By: <Electronically signed by Shashi Hopkins MD in OV> 11/29/23 1355 DD/ 09 TD/TT: 11/18/230 Food Order Expediter: MIYA Calcium Reviewed date:12/28/2023 12:22:35 PM Interpretation: Performing Lab:[address] [address] Notes/Report: Calcium 10.8 8.4-10.2 mg/dL Parathyroid Hormone Intact Reviewed date:12/28/2023 01:44:55 PM Interpretation: Performing Lab:[address] [address] Notes/Report: Parathyroid Hormone Intact 57.9 8.7-77.1 pg/mL Reason For Referral Reason spinal stenosis of l umbosacral region Diagnosis 1 Spinal stenosis of l umbosacral region (M48.07) Referral Organization Alexandro Perez MD Referring Provider First Name Alexandro Referring Provider Last Name Chris Referring Provider Speciality Internal edicine Referred Provider Harmeet Patterson Referred Provider Specialty Neurosurgery General Notes Ada Jimenez 02:39:15 PM EDT > MRI pending , Ada Jimenez 10/25/2023 10:11:20 AM EDT > info faxed , Ada Jimenez 10/29/2023 02:59:06 PM EDT > spoke with office fax [phone] they want her to have her MRI done first before an appt can be made , AndrzejYahaira Olamide 11/09/2023 09:26:29 AM EDT > JEANINE IS SCHEDULED FOR MRI at [facility] 11/18/23 at 445pm, Ada Jimenez 11/30/2023 07:24:05 AM EDT > info FAXED , Ada Jimenez 12/03/2023 09:43:25 AM EDT > called patient with info and mailed Referral Priority Routine Referral Appointment Date 12/10/2023 Reason disorder of parathyr oid gland Diagnosis 1 Disorder of parathyr oid gland, unspecified (E21.5) Referral Organization Alexandro Perez MD Referring Provider First Name Alexandro Referring Provider Last Name Chris Referring Provider Speciality Internal edicine Referred Provider Arya Castillo Referred Provider Specialty Endocrinolog y General Notes Ada Jimenez 02:28:02 PM EDT > info faxed Referral Priority Routine Referral Appointment Date 10/25/2023 Reason disorder of papathyr oid gland Diagnosis 1 Disorder of parathyr oid gland, unspecified (E21.5) Referral Organization Alexandro Perez MD Referring Provider First Name Alexandro Referring Provider Last Name Chris Referring Provider Speciality Internal edicine Referred Provider Arya Castillo Referred Provider Specialty Endocrinolog y General Notes Ada Jimenez 01:01:36 PM EDT > patient is aware of appt Referral Priority Routine Referral Appointment Date 01/24/2024 Medications Medication SIG (Take, Route, Frequency, Duration) [...] A DAY WITH FOOD OR MILK NEEDED EVERY 8 HOURS FOR 90 DAYS for 30 Active Vitamin D (Cholecalciferol) 1000 UNIT 1 tablet Orally Once a day for 30 day(s) 02/11/2015 Active LORazepam 0.5 MG 1 tablet at bedtime as needed Orally Once a day for 10 days 05/09/2024 Active Zocor 20 MG TAKE 1 TABLET BY ALLISON TH EVERY DAY for 90 Not-Taking dilTIAZem HCl ER 60 MG TAKE 1 CAPSULE BY MOUTH EVERY DAY FOR 30 DAYS for 30 Active Atorvastatin Calcium 20 MG TAKE 1 TABLET BY MOUTH EVERY DAY for 90 Active Immunizations Vaccine Route Administration Date Status Comme nts Flu Vaccine IM Intramuscular 01/18/2012 Administered TDaP IM Intramuscular 01/18/2012 Administered PPSV23 (Pnemovax) IM Intramuscular 01/16/2014 Administered Flu Vaccine IM Intramuscular 01/25/2014 Administered Shingles IM Intramuscular 01/29/2014 Administered zFluzone Quadrivalent IM Intramuscular 02/05/2015 Administ ered Fluarix Quadrivalent IM Intramuscular 02/24/2016 Administe red Fluarix Quadrivalent IM Intramuscular 01/07/2017 Administe red Prevnar 13 IM Intramuscular 01/12/2017 Administered Fluarix Quadrivalent IM Intramuscular 01/03/2018 Administe red Fluarix Quadrivalent IM Intramuscular 12/12/2018 Administe red PPSV23 (Pnemovax) IM Intramuscular 01/19/2019 Administered Fluarix Quadrivalent IM Intramuscular 12/27/2019 Administe red SARS-COV-2 Pfizer Unknown 06/19/2020 Administered SARS-COV-2 Pfizer Unknown 07/10/2020 Administered Influenza High Dose Unknown 01/26/2023 Administered [facility] Influenza High Dose IM Intramuscular 12/31/2023 Administer ed Social History Tobacco Use: Social History Observation Description Date Details (start date - stop date) Current Smoker NA - NA Tobacco Use/Smoking Question Answer Notes Patient is a current smoker How often do you smoke cigarettes? every day How many cigarettes a day do you smoke? 6-10 How soon after you wake up d o you smoke your first cigarette? 6-30 minutes Are you interested in quitting? Thinking about q uitting Additional Findings: Tobacco User Kiana galeana cigarette smoker, not currently using another form of tobacco Alcohol Screen Question Answer Notes Did you have a drink contain ing alcohol in the past year? Yes How often did you have a dri nk containing alcohol in the past year? 4 or more times a week (4 points) How many drinks did you have on a typical day when you were drinking in the past year? 1 or 2 drinks (0 point) How often did you have 6 or more drinks on one occasion in the past year? Never (0 point) Points 4 Interpretation Positive Problems Problem Type SNOMED Code ICD Code Onset Dates Problem Status W/U Status Risk Notes Problem 82814035 Hypokalemia (E87.6) Active confirmed Problem 019748150 Tubular adenoma (D36.9) Active confirmed Problem 13209157 Vitamin D defici ency (E55.9) Active confirmed Problem 60700996 Anxiety (F41.9) Active confirmed Problem Disorder of parathyroid gland (67899155) Disorder of parathyroid gland, unspecified (E21.5) Active confirmed Problem Hypercalcemia (49263274) Hypercalcemia (E83.52) Active confirmed Problem 4854086 Panlobular emphy sema (J43.1) Active confirmed Problem 85837680 Essential hypert ension (I10) Active confirmed Problem 05873828 Hyperparathyroid ism (E21.3) Active confirmed Problem 112377268 History of abnor mal mammogram (Z87.898) Active confirmed Problem 16031249 Current smoker (F17.200) Active confirmed Problem 962400605 Spinal stenosis of lumbosacral region (M48.07) Active confirmed Problem 839585341 Prediabetes (R73.03) Active confirmed Problem 184655864 Pure hypercholesterolemia (E78.00) Active confirmed Problem 93012651 Osteoporosis wit hout current pathological fracture, unspecified osteoporosis type (M81.0) Active confirmed Problem 980696712 Poor balance (R26.89) Active confirme d Vital Signs Blood pressure diastolic 90 mm Hg 01/28/2024 Height 66 in 01/28/2024 Blood pressure systolic 158 mm Hg 01/28/2024 Weight 172 lbs 01/28/2024 BMI 27.76 kg/m2 01/28/2024 Encounters Encounter Location Date Provider Diagnosis Alexandro Perez MD [address] [place] [id number] 09/13/2023 Alexandro Perez Spinal stenosis of l umbar region with neurogenic claudication M48.062 ; Current smoker F17.200 ; Essential hypertension I10 ; History of abnormal mammogram Z87.898 and Breast cancer screening Z12.39 Alexandro Perez MD [address] [place] [id number] 10/14/2023 Alexandro Perez Spinal stenosis of lumbosacral region M48.07 ; Essential hypertension I10 and Bilateral leg edema R60.0 Alexandro Perez MD [address] [place] [id number] 10/28/2023 Alexandro Perez Hypercalcemia E83.52 ; Hypokalemia E87.6 and Essential hypertension I10 Alexandro Perez MD [address] [place] [id number] 12/31/2023 Alexandro Perez Hypercalcemia E83.52 ; Bilateral leg edema R60.0 ; Essential hypertension I10 ; Encounter for immunization Z23 and Hyperparathyroidism E21.3 Alexandro Perez MD [address] [place] [id number] 01/28/2024 Alexandro Perez Bilateral leg edema R60.0 ; Essential hypertension I10 and Poor balance R26.89 Alexandro Perez MD [address] [place] [id number] 08/10/2023 Alexandro Perez MD [address] [place] [id number] 10/15/2023 Alexandro Perez Hypercalcemia E83.52 Alexandro Perez MD [address] [place] [id number] 10/15/2023 Alexandro Perez MD [address] [place] [id number] 11/19/2023 Alexandro Perez MD [address] [place] [id number] 02/25/2024 Alexandro Perez MD [address] [place], [place] [id number] 04/07/2024 Alexandro Perez MD [address] [place], [place] [id number] 05/09/2024 Alexandro Perez Assessments Encounter Date Diagnosis (ICD Code) Assessment Notes Treatment Notes Treatment Clinical Notes Section Notes 09/13/2023 Spinal stenosis of lumbar region with neurogenic claudication (ICD-10 - M48.062) pain center requires mri before being seen 09/13/2023 Current smoker (ICD- 10 - F17.200) discussed screening 10/14/2023 Spinal stenosis of lumbosacral region (ICD-10 - M48.07) pending diagnostic testing, referral to [facility] dr patterson/ order faxed to [facility] CS dept 10/14/2023 Essential hypertensi on (ICD-10 - I10) stable, will continue current regiment 10/28/2023 Hypercalcemia (ICD-1 0 - E83.52) THE ORDER WAS GIVEN TO JEANINE TO HAVE DRAWN AT [facility] 10/28/2023 Hypokalemia (ICD-10 - E87.6) will continue to monitor 12/31/2023 Hypercalcemia (ICD-1 0 - E83.52) 12/31/2023 Bilateral leg edema (ICD-10 - R60.0) this secondary to amlodiopine, patient verbalized understanding of medication instructions and directions for use 01/28/2024 Bilateral leg edema (ICD-10 - R60.0) doing much better off the amlodipine. will leave her on the present meds/ 01/28/2024 Essential hypertensi on (ICD-10 - I10) well controlled on the present meds 09/13/2023 Essential hypertensi on (ICD-10 - I10) patient verbalized understanding of medication and directions for use 10/14/2023 Bilateral leg edema (ICD-10 - R60.0) is from the amlodipine, patient verbalized understanding of mediction and directions for use 10/28/2023 Essential hypertensi on (ICD-10 - I10) patient verbalized understanding of instruction to stop Losartan and HCTZ, and verbalized understanding of new medication and directions for use 12/31/2023 Essential hypertensi on (ICD-10 - I10) stable, will continue current regiment 01/28/2024 Poor balance (ICD-10 - R26.89) is goint to physical therapy and hopefully will improve 10/15/2023 Hypercalcemia (ICD-1 0 - E83.52) order printed and will fax to [facility] patient notified. 09/13/2023 History of abnormal mammogram (ICD-10 - Z87.898) order faxed to [facility] CS dept, pending diagnostic testing 12/31/2023 Encounter for immunization (ICD-10 - Z23) flu vaccine administered 12/31/2023 Hyperparathyroidism (ICD-10 - E21.3) is going to be seeing dr castillo next month 09/13/2023 Breast cancer screening (ICD-10 - Z12.39) Plan Of Treatment Pending Test Test Name Order Date Electrocardiogram (EKG) 12/03/2017 Electrocardiogram (EKG) 12/16/2018 US BREAST VERO 10/30/2013 MRI LUMBAR SPINE NO CONTRAST 10/14/2023 BONE DENSITY DEXA 12/28/2019 MAMMOGRAM DIGITAL BILATERAL SCREEN 09/12 Next Appt Details Provider Name:Alexandro Brink ier, 07/11/2024 07:15:00 AM, [address] [place] [address], [address], [phone], Provider Name:Alexandro Brink ier, 07/18/2024 10:30:00 AM, [address] [place] [address], [address], [phone], Insurance Providers Payer Name Payer Address Payer Phone Subscriber Number Group Number Insured Name Patient Relationship to Insured Coverage Start Date Coverage End Date MEDICARE NHIC [employer] [address] [place] [address] [id number] Jeanine Epps Self - patient is the insured [facility] [address] [place] [phone] [id number] Jeanine Epps Self - patient is the insured Medical (General) History Medical History History ICD Code colonoscopy 2010 due in 3 to 5 years; repeat done 04/10/14 by Jeanine Benz, M.D.; Colonoscopy done 01/04/18 repeat in 2yrs; Colonoscopy done 07/04/21 awaiting path colonoscopy 2021 tubular adenoma repeat in 3 years Surgical History Surgery Date(Month/Year) left meniscus repair 04/02/16
== END 2024-07-06 10:25 | disposition home or self-care (01) ==
LOC: HO.PMCPRC 09:23
PROVIDERS: PCP Internal Medicine; Visit Provider Internal Medicine
DX: M54.16 Radiculopathy, lumbar region (principal); M54.50 Low back pain, unspecified; G89.29 Other chronic pain
CPT/HCPCS: 62323

== ENCOUNTER 2024-07-11 10:15 | Outpatient (REF) | payer MEDICARE, OTHER, SELFPAY ==
[2024-07-11 10:25] LABS: MANUAL DIFF FLAG NO
[2024-07-11 10:37] LABS: Basophils Percent Auto 0.1 % (0-2); Hematocrit 43.6 % (37.0-47.0); Hemoglobin 15.1 g/dl (12.0-16.0); Imm Gran Abs Auto 0.09 X10*3/uL (0.00-0.03); Imm Gran Pct Auto 0.7 % (0.0-0.4); Lymphocytes Absolute Auto 1.9 X10*3/uL (1.2-4.9); Lymphocytes Percent Auto 16.1 % (20-40); Mean Corpuscular HGB Conc 34.6 g/dl (31.0-35.0); Mean Corpuscular Hemoglobin 33.3 pg (27.0-33.0); Mean Corpuscular Volume 96.2 fL (80.0-98.0); Mean Platelet Volume 9.6 fL (9.4-12.3); Monocytes Absolute Auto 0.9 X10*3/uL (0.1-1.2); Monocytes Percent Auto 7.8 % (2-11); Neutrophils Absolute Auto 9.1 x10*3/uL (2.0-8.3); Neutrophils Percent Auto 75.3 % (45-73); Platelet Count 393 X10*3/uL (160-400); Red Blood Count 4.53 X10*6/uL (4.20-5.50); Red Cell Distribution Width 13.9 % (11.0-16.0); White Blood Count 12.1 X10*3/uL (4.8-10.8)
[2024-07-11 10:54] LABS: Estimated Average Glucose 105 mg/dL; Hemoglobin A1C 140.2855 umol/L; Hemoglobin A1c % 5.3 % (<6.0); Total Hemoglobin (HGBA1C) 4093.4885 umol/L
[2024-07-11 10:57] LABS: Alanine Aminotransferase 23 U/L (0-31); Albumin Level 4.5 g/dL (3.5-5.0); Alkaline Phosphatase 53 U/L (39-117); Anion Gap 12 (12-20); Aspartate Amino Transferase 38 U/L (5-31); Bilirubin Total 0.9 mg/dL (0.0-1.0); Blood Urea Nitrogen 19 mg/dL (9-16); Calcium 10.3 mg/dL (8.4-10.2); Carbon Dioxide 23 mmol/L (22-29); Chloride 108 mmol/L (96-108); Cholesterol 208 mg/dL (<200); Estimated Glomerular Filt Rate > 60; Glucose Fasting 109 mg/dL (60-99); HDL Cholesterol 97 mg/dL (>40); LDL Cholesterol Calculated 94 mg/dL (<100); Potassium 3.8 mmol/L (3.3-5.1); Sodium 139 mmol/L (135-145); Total Protein 7.3 g/dL (6.5-8.0); Triglycerides 86 mg/dL (<150)
[2024-07-11 11:16] LABS: Vitamin D 25-OH Total 64.6 ng/mL (>30)
--- OUTSIDE RECORDS SUMMARY | 2024-07-11 12:07 | XMS_ITS ---
Author Organization Alexandro Perez MD Address [address] [place] [phone] Care Team Providers Care Aviation Maintenance Instructor Name Role Phone Alexandro Perez Primary Care Provider [phone] REASON FOR VISIT New Refill Request Medications Medication SIG (Take, Route, Fr equency, Duration) Notes Start Date End Date Status LORazepam 0.5 MG 1 tablet at bedtime as needed Orally Once a day for 10 days 05/09/2024 Ac tive Encounters Encounter Location Date Provider Diagnosis Alexandro Perez MD [facility] [address] [place] [phone] 05/09/2024 Alexandro Perez Plan Of Treatment Medication Medication Name Sig Start Date Stop Date Notes LORazepam 0.5 MG 1 tablet at bedtime as needed Orally Once a day for 10 days 05/09/2024 Next Appt Details Provider Name:Alexandro reyes, 07/18/2024 10:30:00 AM, [address], Suite [facility], [place], [place], [phone], Progress Notes * Jeanine BACON TDOB: 2 (73 yo F)Acc No.[id number]:05/09/2024 Patient:?BACON Jeanine Mary :1950???Age:73 Y???Sex:Female Address:[address] [place] [phone] * Refills? Refill LORazepam Tablet, 0.5 MG, Orally, 10 Tablet, 1 tablet at bedtime as needed, Once a day, 10 days, Refills=0 * true * Date:? Generated for Sahil dodd/Carmen/Genarosmitting on:?07/11/2024 12:07 PM EDT
--- OUTSIDE RECORDS SUMMARY | 2024-07-11 12:07 | XMS_ITS ---
Author Organization Alexandro Perez MD Address [address] [place], [place] [phone] Care Team Providers Care Fertilizer Loader Name Role Phone Alexandro Perez Primary Care Provider [phone] Results Component Value Reference Range Notes Complete Blood Count Auto Di ff (Not yet reviewed by provider) Interpretation: Performing Lab:[facility], [address] [place] [phone] Notes/Report: White Blood Count 12.1 4.8-10.8 X10*3/uL [...] NRBC Abs Auto 0.000 0.0-0.012 X10*3/uL Comprehensive Uledi. Panel Fa st (Not yet reviewed by provider) Interpretation: Performing Lab:[address] [phone] Notes/Report: Sodium 139 135-145 mmol/L Potassium 3.8 [...] Alkaline Phosphatase 53 39-117 U/L Lipid Panel (Not yet reviewe d by provider) Interpretation: Performing Lab:[address] [phone] Notes/Report: Triglycerides 86 <150 mg/dL Desirable Triglyceride: [...] with liver disease. Vitamin D 25-OH Total (Not y et reviewed by provider) Interpretation: Performing Lab:[address] [phone] Notes/Report: Vitamin D 25-OH Total 64.6 >30 [...] another method such as LC-MS/MS. Hemoglobin A1c (Not yet revi ewed by provider) Interpretation: Performing Lab:[facility], [address] [place] [phone] Notes/Report: Hemoglobin A1c % 5.3 <6.0 % [...] average glucose, using the formula of the G9C-Mguhhnz Average Glucose study (ADAG), Diabetes Care, Vol.31,#8, Nov. 2007 REASON FOR VISIT yearly fasting labs with lipids Encounters Encounter Location Date Provider Diagnosis Alexandro Perez MD [address] [place], [place] [phone] 07/11/2024 Alexandro Perez Pure hypercholestero lemia E78.00 [...] Treatment Pending Test Test Name Order Date Complete Blood Count Auto Diff 5 Comprehensive Uledi. Panel Fast Lipid Panel 07/11/2024 Vitamin D 25-OH Total 07/11/2024 Microalbumin, Random 07/11/2024 Hemoglobin A1c 07/11/2024 UA ClnCatch+Micro w/rflx Cult 07/11/2024 Next Appt Details Provider Name:Alexandro Brink ier, 07/18/2024 10:30:00 AM, [address] [place] [address] Drive, [address], [place], [place], [phone], Progress Notes * BACON Jeanine TDOB: 2 (73 yo F)Acc No.[id number]:07/11/2024 Progress Note Patient:?Jeanine BACON Provider:?Alexandro Perez MD :1950???Age:73 Y???Sex:Female D ate:07/11/2024 Address:[address] [place], [place] [id number] Subjective: * Chief Complaints: * ???1. Yearly fasting labs wi th lipids. * Medical History:? Objective: * Vitals:? Assessment: * Assessment: 1.?Pure hypercholesterolemia - E78.00 (Primary)???2.?Essential hypertension - I10???3.?Vitamin D deficiency - E55.9???4.?Prediabetes - R73.03??? Plan: * Treatment: 2.?Essential hypertension?LAB: Complete Blood Count Auto Diff (Collection Date & Time - 07/11/2024 07:15 AM) ?LAB: Comprehensive Uledi. Panel Fast (Collection Date & Time - 07/11/2024 07:15 AM) ?LAB: Lipid Panel (Collection Date & Time - 07/11/2024 07:15 AM) ?LAB: Vitamin D 25-OH Total (Collection Date & Time - 07/11/2024 07:15 AM) ?LAB: Microalbumin, Random ?LAB: Hemoglobin A1c (Collection Date & Time - 07/11/2024 07:15 AM) ?LAB: UA ClnCatch+Micro w/rflx Cult 3.?Vitamin D deficiency?LAB: Complete Blood Count Auto Diff (Collection Date & Time - 07/11/2024 07:15 AM) ?LAB: Comprehensive Uledi. Panel Fast (Collection Date & Time - 07/11/2024 07:15 AM) ?LAB: Lipid Panel (Collection Date & Time - 07/11/2024 07:15 AM) ?LAB: Vitamin D 25-OH Total (Collection Date & Time - 07/11/2024 07:15 AM) ?LAB: Microalbumin, Random ?LAB: Hemoglobin A1c (Collection Date & Time - 07/11/2024 07:15 AM) ?LAB: UA ClnCatch+Micro w/rflx Cult 4.?Prediabetes?LAB: Complete Blood Count Auto Diff (Collection Date & Time - 07/11/2024 07:15 AM) ?LAB: Comprehensive Uledi. Panel Fast (Collection Date & Time - 07/11/2024 07:15 AM) ?LAB: Lipid Panel (Collection Date & Time - 07/11/2024 07:15 AM) ?LAB: Vitamin D 25-OH Total (Collection Date & Time - 07/11/2024 07:15 AM) ?LAB: Microalbumin, Random ?LAB: Hemoglobin A1c (Collection Date & Time - 07/11/2024 07:15 AM) ?LAB: UA ClnCatch+Micro w/rflx Cult * Procedure Codes:?05643 VENIP UNCT, ROUTINE* * * The named appointment provid er may or may not be the originator of this progress note, and it is not deemed complete until electronically signed by the appointment provider. Sign off status: Pending * Provider:?Alexandro Perez MD Date:?0 07/11/2024 Generated for Sahil dodd/Carmen/eTransmitting on:?07/11/2024 12:07 PM EDT
--- OUTSIDE RECORDS SUMMARY | 2024-07-11 12:08 | XMS_ITS ---
Author Organization Alexandro Perez MD Address [address] [place] [phone] Care Team Providers Care Forest Pathology Professor Name Role Phone Alexandro Perez Primary Care Provider REASON FOR VISIT Calcium Encounters Encounter Location Date Provider Diagnosis Alexandro Perez MD [address] [place] [phone] 04/17/2024 Alexandro Perez Hypercalcemia E83.52 Assessments Encounter Date Diagnosis (ICD Code) Assessment Notes Treatment Notes Treatment Clinical Notes Section Notes 04/17/2024 Hypercalcemia (ICD-10 - E83.52) Plan Of Treatment Pending Test Test Name Order Date Calcium 04/17/2024 Next Appt Details Provider Name:Alexandro Brink ier, 07/18/2024 10:30:00 AM, [address], Suite [facility], [place], [place], [phone], Progress Notes * Jeanine BACON TDOB: (73 yo F)Acc No.[id number]:04/17/2024 Progress Note Patient:?Jeanine BACON Provider:?Alexandro Perez MD :1950???Age:73 Y???Sex:Female D ate:04/17/2024 Address:[address] [place] [address] [id number] Subjective: * Chief Complaints: * ???1. Calcium. [...] MD Date:?0 04/17/2024 Generated for Sahil dodd/Carmen/Sriitting on:?07/11/2024 12:07 PM EDT
== END 2024-07-11 10:16 | disposition home or self-care (01) ==
LOC: HO.LNP 10:15
PROVIDERS: Visit Provider Internal Medicine
DX: E78.00 Pure hypercholesterolemia, unspecified (principal); I10 Essential (primary) hypertension; E55.9 Vitamin D deficiency, unspecified; R73.03 Prediabetes
CPT/HCPCS: 80053; 80061; 82306; 83036; 85025

== ENCOUNTER 2024-08-02 09:37 | Outpatient (AMB) | payer MEDICARE, OTHER, SELFPAY ==
--- NOTE | 2024-08-02 09:45 | MHC.OFFVIS ---
Vital Signs 08/02/24 09:47 Height 5 ft 5 in Weight 157 lb BMI 26.1 BP 219/98 H Blood Pressure Location Lt brachial Position Sitting Respiration 16 Pulse 75 Pulse Source Pulse Oximeter Pulse Oximetry (%) 99 Oxygen Delivery Method Room Air Intake Visit Reasons: s/p L2-L3 interlaminar FRANK Intake Note: Pt's BP grossly elevated. She states she just had coffee, and has white coat syndrome Rod Placer Required: No Allergies No Known Allergies Allergy (Verified 08/02/24 09:48) Medication List - Last Reconciled 08/02/24 by Yuliya Siegel LPN atorvastatin 20 mg PO BEDTIME cholecalciferol (vitamin D3) 25 mcg PO DAILY diltiazem HCl ER mg PO hydrochlorothiazide 25 mg PO DAILY potassium chloride ER (Klor-Con) 10 mEq PO DAILY valsartan 320 mg PO DAILY HPI HPI s/p L2-L3 interlaminar FRANK: Details: History of Present Illness The patient is a 73-year-old female presenting for follow-up after an L2-3 interlaminar epidural spur injection. She reports that while the injection has improved her back pain, she continues to experience significant weakness and fatigue in her upper legs, particularly after activities like walking or climbing stairs. Although she first noticed the weakness following a procedure involving electrodes, she believes it is exacerbated by her spinal condition, specifically spinal stenosis at L3-4 and L4-5 as revealed in a previous MRI. The patient is able to manage daily activities using a cane and support from grocery carts. She recalls a bone density assessment in 2015 showing osteopenia, warranting further evaluation for osteoporosis due to potential implications for her spine treatment options. Pain Description - Onset: Noticeable after a procedure involving electrodes. - Quality: Weakness and fatigue, rather than sharp pain. - Location: Upper legs. - Radiation: None. - Exacerbating Factors: Walking, climbing stairs. - Relieving Factors: Sitting down. - Interference with Activities: End-of-day fatigue, requiring early rest. Physical Exam - Appears afebrile. - Alert and oriented. - Mood and affect appropriate. - Follows and participates in conversation appropriately. - Respiratory effort is unlabored. - Able to transition from sit to stand unassisted. Results - MRI: Hypertrophy at L3-4 with moderate spinal stenosis. - Bone Density Scan (2014): T-score of -2.1 indicating osteopenia. Pain Management - Affect: Significant impact due to fatigue and weakness. - Analgesia: Recent L2-3 interlaminar epidural injection, positive response in terms of back pain relief. - Adverse Effects: None reported from pain medication. - Activities of Daily Living: Assistance needed for errands, limits on physical activity. - Aberrant Drug Related Behaviors: None reported. [facility] Medical History (Updated 08/02/24 @ 10:07 by Garfield Quiles MD) Hypercalcemia Colon cancer screening Tubular adenoma Hypercholesterinemic xanthomatosis HTN (hypertension) Surgical History Hx of arthroscopic knee surgery History of total right hip arthroplasty Hx of colonoscopy Family History Father Colon cancer Mother Colon cancer Breast CA Social History Household Members: Spouse and Children Alcohol intake: current Alcohol intake frequency: holidays/special occasions only Patient Tobacco Use Status: Current everyday Tobacco user Tobacco use type: Cigarette Cigarette Packs Per Day: 0.5 Cigarettes Per Day: 10 Physical Exam Vital Signs: Last Vital Signs Pulse 75 08/02/24 09:47 Resp 16 08/02/24 09:47 BP 219/98 H 08/02/24 09:47 Pulse Ox 99 08/02/24 09:47 Oxygen Delivery Method Room Air 08/02/24 09:47 BMI result Body Mass Index 26.1 Assessment & Plan Assessment & Plan (1) Osteopenia: Code(s): M85.80 - Other specified disorders of bone density and structure, unspecified site Category: Medical Plan Plan - Arrange repeat DEXA scan to rule out osteoporosis. - Discussed minimally invasive lumbar decompression and VertiFlex techniques with the patient, providing educational materials. - Advised on additional bone density management for confirmed osteopenia and potential osteoporosis. - Scheduled follow-up appointment post-DXA results for further management planning (?Vertiflex). - Advised on supportive measures for daily activities. Patient was informed and verbally consented to the use of an ambient scribe for clinic note documentation during this visit. Discussion Notes During our discussion, I explained the current findings of spinal stenosis at L3-4 and L4-5 causing significant weakness and fatigue symptoms. I reviewed the potential options for treatment, including minimally invasive lumbar decompression and VertiFlex Superion Spacer, both potentially beneficial with considerations for ease and effectiveness. I emphasized the importance of a repeated DEXA scan for a comprehensive evaluation of bone health, given the patient's history of osteopenia, as osteoporosis could contraindicate certain surgical interventions. The patient was provided with detailed brochures describing both procedures, and we established a plan to reconvene following the results of her bone scan to make an informed decision regarding her management strategy. We also discussed the potential risks and intended outcomes of these interventions to better equip her in making an informed choice. Patient Instructions - Schedule and complete a DEXA scan to check bone density. - Research and review information on MILD procedure and VertiFlex Spacer. - Use a cane and supportive devices when walking or during activities. - Avoid strenuous activities that may lead to fatigue. - Follow up with the office after the bone scan results for further evaluation. - Contact the health care provider if experiencing worsening symptoms. Orders: Orders XR DEXA axial skeleton 08/02/24 M85.80 - Other specified disorders of bone density and structure, unspecified site Coding Level of Care Code Est Pt Level 4 (79866) Diagnoses Osteopenia M85.80
[2024-08-02 09:47] VITALS: BP 219/98; PULSE 75; RESP 16; O2SAT 99; BMI 26.1
== END 2024-08-02 10:14 | disposition home or self-care (01) ==
LOC: HO.PMC 09:38
PROVIDERS: PCP Internal Medicine; Visit Provider Internal Medicine
DX: M85.80 Other specified disorders of bone density and structure, unspecified site (principal)
CPT/HCPCS: 99214

== ENCOUNTER → 2024-08-02 09:37 | Outpatient (BNVA) | payer MEDICARE, OTHER, SELFPAY | PROVIDERS: PCP Internal Medicine; Visit Provider Internal Medicine | DX: M85.80 Other specified disorders of bone density and structure, unspecified site (principal) | CPT/HCPCS: 99212 ==

== ENCOUNTER 2024-10-05 06:19 | Outpatient (REF) | payer MEDICARE, OTHER, SELFPAY ==
--- OUTSIDE RECORDS SUMMARY | 2024-07-11 03:15 | XMS_ITS ---
Author Organization Alexandro Perez MD Address [address] [place], [place] [phone] Care Team Providers Care Osteopathic Medicine Teacher Name Role Phone Alexandro Perez Primary Care Provider Results Component Value Reference Range Notes Complete Blood Count Auto Di ff Reviewed date:07/11/2024 12:34:42 PM Interpretation: Performing Lab:[facility], [address] [place] [phone] Notes/Report: White Blood Count 12.1 4.8-10.8 X10*3/uL [...] NRBC Abs Auto 0.000 0.0-0.012 X10*3/uL Comprehensive [place]. Panel Fa st Reviewed date:07/11/2024 12:34:20 PM Interpretation: Performing Lab:[facility], [address] [place] [phone] Notes/Report: Sodium 139 135-145 mmol/L Potassium 3.8 [...] Reviewed date:07/11/2024 12:15:44 PM Interpretation: Performing Lab:[facility], [address] [place] [phone] Notes/Report: Triglycerides 86 <150 mg/dL Desirable Triglyceride: [...] Reviewed date:07/11/2024 12:15:51 PM Interpretation: Performing Lab:[facility], [address] [place] [phone] Notes/Report: Vitamin D 25-OH Total 64.6 >30 [...] Reviewed date:07/11/2024 12:15:14 PM Interpretation: Performing Lab:[facility], [address] [facility], [place] [phone] Notes/Report: Hemoglobin A1c % 5.3 <6.0 % [...] average glucose, using the formula of the N2Y-Rpjbxcf Average Glucose study (ADAG), Diabetes Care, Vol.31,#8, Nov. 2007 REASON FOR VISIT yearly fasting labs with lipids Encounters Encounter Location Date Provider Diagnosis Alexandro Perez MD [address] [place] [address] [place] [phone] 07/11/2024 Alexandro Perez Pure hypercholestero lemia E78.00 [...] 07/11/2024 Next Appt Details Provider Name:Alexandro reyes, 02/19/2025 08:00:00 AM, [address] [place] [address], [address] [place] [address], [phone], Provider Name:Alexandro reyes, 02/26/2025 10:15:00 AM, [address] [place] [address], [address], [phone], Provider Name:Alexandro reyes, 08/30/2025 07:45:00 AM, [address] [place] [address], [address], [phone], Provider Name:Alexandro Brink ier, 09/06/2025 11:00:00 AM, [address], [address], [place], [phone], Progress Notes * Jeanine BACON TDOB: 2 (74 yo F)Acc No.[id number]:07/11/2024 Progress Note Patient: Jeanine LAMA Provider: Elpidio Perez MD :1950 A ge:73 Y S ex:Female Date:07/11/2024 Address:[address] [place] [address] [place]YTON [id number] Subjective: * Chief Complaints: * 1 . [...] - 07/11/2024 07:15 AM) L AB: Comprehensive [place]. Panel Fast (Collection Date & Time - [...] - 07/11/2024 07:15 AM) L AB: Comprehensive [place]. Panel Fast (Collection Date & Time - [...] - 07/11/2024 07:15 AM) L AB: Comprehensive [place]. Panel Fast (Collection Date & Time - [...] 0 07/11/2024 Generated for Sahil dodd/Carmen/Erna on: 0 10/05/2024 06:22 AM EDT
--- NOTE | ~2024-10-05 | FL_ITS ---
EXAMINATION: FL GUIDANCE ONLY HISTORY: M54.16 - Radiculopathy, lumbar region COMPARISON: None available. TECHNIQUE: Fluoroscopy time: 0.2 minutes. Cumulative Dose: 2.93 mGy. DAP: 0.0272 mGym2 Images: 3. FINDINGS: Fluoroscopic spot films of the lumbar spine demonstrate a needle and contrast material in place. FL/FL guidance in treatment room IMPRESSION: Fluoroscopy during procedure. Please see procedure report for additional information. Electronically signed by: Arya Caballero MD 10/05/2024 03:28 PM EDT
--- OUTSIDE RECORDS SUMMARY | 2024-10-05 06:22 | XMS_ITS | Patient Health Record ---
Author Organization [facility] [place] Address [address] [place] [address] Care Team Providers Care Audiometrist Name Role Phone Alexandro Perez MD Primary Care Provider Ilia Pineda Unavailable [phone] Reason For Referral No Information Medications Medication SIG (Take, Route, Frequency, Duration) Notes Start Date End Date Status Klor-Con 10 10 MEQ 1 tablet with food O rally Twice a day Active Losartan Potassium-HCTZ 100-12.5 MG 1 tablet Orally Once a day Active Atorvastatin Calcium 20 MG 1 tablet Oral ly Once a day Active Walking Boot/Pneumatic As directed Wear Daily; Duration: Until further notice Active Vitamin D3 25MCG Act jasbir Social History Tobacco Use: Social History Observation Description Date Details (start date - stop date) Current Smoker NA - NA Tobacco Use/Smoking Question Answer Notes Are you a: current smoker When did you start smoking? age 31's How often do you smoke cigarettes? every day How many cigarettes a day do you smoke? 6-10 Alcohol Screen Question Answer Notes Did you have a drink contain ing alcohol in the past year? Yes How many drinks did you have on a typical day when you were drinking in the past year? 1 or 2 drinks (0 point) Points 0 Interpretation Negative Tobacco use other than smoking: Question Answer Notes Are you an other tobacco user? No Plan Of Treatment No Information Insurance Providers Payer Name Payer Address Payer Phone Subscriber Number Group Number Insured Name Patient Relationship to Insured Coverage Start Date Coverage End Date Medicare National [employer] [address] [place] [address] [id number] Jeanine Epps Self - patient is the insured 7 [employer]) [address] [place] [address] [id number] Jeanine Epps Self - patient is the insured Medical (General) History Medical History History ICD Code Arthritis Cholesterol High blood pressure Chicken pox Joint implants/screws Surgical History Surgery Date(Month/Year) right hip replacement 02/08/2017
== END 2024-10-05 06:20 | disposition home or self-care (01) ==
LOC: CF 06:19
PROVIDERS: Visit Provider Internal Medicine
DX: M54.16 Radiculopathy, lumbar region (principal)
CPT/HCPCS: 62323; J2003; J3301; Q9967

== ENCOUNTER 2024-10-05 11:37 | Outpatient (AMB) | payer MEDICARE, OTHER, SELFPAY ==
--- NOTE | 2024-10-05 11:39 | MHC.OFFVIS ---
Vital Signs 10/05/24 11:43 10/05/24 11:45 Height 5 ft 5 in 5 ft 5 in Weight 157 lb 157 lb BMI 26.1 26.1 BP 193/97 H 156/90 H Blood Pressure Location Lt brachial Rt brachial Position Sitting Sitting Respiration 16 16 Pulse 84 71 Pulse Source Pulse Oximeter Pulse Oximeter Pulse Oximetry (%) 97 97 Oxygen Delivery Method Room Air Room Air Intake Visit Reasons: L3-L4 interlaminar FRANK/ ativan Allergies No Known Allergies Allergy (Verified 08/02/24 09:48) HPI HPI L3-L4 interlaminar FRANK/ ativan: Details: Patient presents for scheduled procedure. Denies any recent cough, cold, infection, fever or other significant changes in medical history since last office visit. [facility] Medical History (Updated 08/24/24 @ 10:26 by Garfield Quiles MD) Hypercalcemia Colon cancer screening Tubular adenoma Hypercholesterinemic xanthomatosis HTN (hypertension) Surgical History Hx of arthroscopic knee surgery History of total right hip arthroplasty Hx of colonoscopy Family History Father Colon cancer Mother Colon cancer Breast CA Social History Household Members: Spouse and Children Alcohol intake: current Alcohol intake frequency: holidays/special occasions only Patient Tobacco Use Status: Current everyday Tobacco user Tobacco use type: Cigarette Cigarette Packs Per Day: 0.5 Cigarettes Per Day: 10 Physical Exam Vital Signs: Last Vital Signs Pulse 71 10/05/24 11:45 Resp 16 10/05/24 11:45 BP 156/90 H 10/05/24 11:45 Pulse Ox 97 10/05/24 11:45 Oxygen Delivery Method Room Air 10/05/24 11:45 BMI result Body Mass Index 26.1 Office Procedures AMB Joint Injection/Aspiration Joint Injection/Aspiration Details: Interlaminar epidural steroid injection, L3/4, Left parasaggital After obtaining written consent, pre-procedure blood pressure and heart rate were stable and recorded in the nursing record. The patient was placed in the prone position. The lumbar area was widely prepped with chloraprep and draped in sterile fashion. Fluoroscopic guidance was used to identify the desired interlaminar space and for needle placement. Subcutaneous 0.5% lidocaine was used to anesthetize the skin overlying the target. A 20-gauge Mercedes needle was advanced to the epidural space using loss of resistance to contrast technique under fluoroscopic AP and contralateral oblique views. There was no evidence of heme or CSF and no paresthesias were elicited with needle placement. Confirmation of epidural needle placement was performed with 1cc of omnipaque 180. Next 3 ml 0.5% lidocaine mixed with 80 mg triamcinilone was administered epidurally with no pain elicited on injection. The needle tract tubing was then cleared with 1 ml of 0.5% lidocaine. The needle was removed, skin cleansed and a sterile bandage was applied. The patient tolerated the procedure well and no complications were encountered. Following the procedure the patient's vital signs were stable. The patient was discharged home in good condition with post-procedural instructions. Time Out: Immediately prior to the procedure, the following was verbally confirmed that there is a signed consent form and that the correct patient, planned procedure, site and side are consistent with documentation and that necessary equipment and/or blood products are available prior to the start of the case. Complications: none EBL: <2 cc Coding 91133 - Caudal/Lumbar Epidural/Interlaminar with fluoroscopy Procedure code (CPT) selection complete Assessment & Plan Assessment & Plan (1) Lumbar radicular pain: Code(s): M54.16 - Radiculopathy, lumbar region Category: Medical Plan Patient is status post left parasagittal L3/4 FRANK. Patient tolerated procedure well and was discharged home in stable condition with discharge instructions. All questions were answered. We will follow-up via telephone or in clinic to assess response to therapy. A follow-up appointment was made during today's visit. Orders: Orders FL guidance in treatment room 10/05/24 M54.16 - Radiculopathy, lumbar region Medications: New lorazepam (Ativan) Take 30 minutes prior to arrival to procedure 1 mg PO ONCE 1 tab 0RF anxiety Coding Level of Care Code Procedure Only Diagnoses Lumbar radicular pain M54.16 CPT Codes Coding - Joint 11: 77019 - Caudal/Lumbar Epidural/Interlaminar with fluoroscopy ([id number])
[2024-10-05 11:43] VITALS: BP 193/97; PULSE 84; RESP 16; O2SAT 97; BMI 26.1
[2024-10-05 11:45] VITALS: BP 156/90; PULSE 71; RESP 16; O2SAT 97; BMI 26.1
== END 2024-10-05 12:44 | disposition home or self-care (01) ==
LOC: HO.PMCPRC 11:37
PROVIDERS: PCP Internal Medicine; Visit Provider Internal Medicine
DX: M54.16 Radiculopathy, lumbar region (principal)
CPT/HCPCS: 62323

== ENCOUNTER 2024-10-24 10:59 | Outpatient (REF) | payer MEDICARE, OTHER, SELFPAY ==
--- OUTSIDE RECORDS SUMMARY | 2024-07-11 03:15 | XMS_ITS ---
Author Organization Alexandro Perez MD Address [address] [place], [place] [phone] Care Team Providers Care Field Kiln Burner Name Role Phone Alexandro Perez Primary Care Provider Results Component Value Reference Range Notes Complete Blood Count Auto Di ff Reviewed date:07/11/2024 12:34:42 PM Interpretation: Performing Lab:[facility], [address] [place] [phone] Notes/Report: White Blood Count 12.1 4.8-10.8 X10*3/uL [...] NRBC Abs Auto 0.000 0.0-0.012 X10*3/uL Comprehensive [place]. Panel Fa st Reviewed date:07/11/2024 12:34:20 PM Interpretation: Performing Lab:[facility], [address] [place] [phone] Notes/Report: Sodium 139 135-145 mmol/L Potassium 3.8 [...] Panel Reviewed date:07/11/2024 12:15:44 PM Interpretation: Performing Lab:[facility], [address] [place] [phone] Notes/Report: Triglycerides 86 <150 mg/dL Desirable Triglyceride: [...] Total Reviewed date:07/11/2024 12:15:51 PM Interpretation: Performing Lab:[facility], [address] [place] [phone] Notes/Report: Vitamin D 25-OH Total 64.6 >30 [...] A1c Reviewed date:07/11/2024 12:15:14 PM Interpretation: Performing Lab:[facility], [address] [facility], [place] [phone] Notes/Report: Hemoglobin A1c % 5.3 <6.0 % [...] average glucose, using the formula of the Z3J-Vttaddl Average Glucose study (ADAG), Diabetes Care, Vol.31,#8, Nov. 2007 REASON FOR VISIT yearly fasting labs with lipids Encounters Encounter Location Date Provider Diagnosis Alexandro Perez MD [address] [place] [address] [place] [phone] 07/11/2024 Alexandro Perez Pure hypercholestero lemia E78.00 [...] Details Provider Name:Alexandro reyes, 02/19/2025 08:00:00 AM, [address] [place] [address], [address] [place] [address], [phone], Provider Name:Alexandro reyes, 02/26/2025 10:15:00 AM, [address] [place] [address], [address], [phone], Provider Name:Alexandro reyes, 08/30/2025 07:45:00 AM, [address] [place] [address], [address], [phone], Provider Name:Alexandro Brink ier, 09/06/2025 11:00:00 AM, [address], [address], [place], [phone], Progress Notes * Jeanine BACON TDOB: 2 (74 yo F)Acc No.[id number]:07/11/2024 Progress Note Patient: Jeanine LAMA Provider: Elpidio Perez MD :1950 A ge:73 Y S ex:Female Date:07/11/2024 Address:[address] [place] [address] CHRIST[place] PAYTON [phone] Subjective: * Chief Complaints: * 1 . [...] - 07/11/2024 07:15 AM) L AB: Comprehensive [place]. Panel Fast (Collection Date & Time - [...] - 07/11/2024 07:15 AM) L AB: Comprehensive [place]. Panel Fast (Collection Date & Time - [...] - 07/11/2024 07:15 AM) L AB: Comprehensive [place]. Panel Fast (Collection Date & Time - [...] 07/11/2024 Generated for Sahil dodd/Carmen/Erna on: 0 10/24/2024 12:16 PM EDT
--- NOTE | ~2024-10-24 | MM_ITS ---
EXAMINATION: DXA BONE DENSITY AXIAL HISTORY: M85.80 - Other specified disorders of bone density and structure, unspecified... TECHNIQUE: Flo Water Dual energy absorptiometry (DEXA) of the lumbar spine, total left hip, and femoral neck was performed. COMPARISON: Comparison is made with the prior examination dated 09/16/2017. FINDINGS: The bone mineral density of the lumbar spine is 1.014 g/cm2, corresponding to a T-score of -1.4, and a Z-score of 0.0. This is indicative of osteopenia. This represents a BMD change of 16.2% compared to the prior exam. This is statistically significant. The bone mineral density of the left total hip is 0.787 g/cm2, corresponding to a T-score of -1.8, and a Z-score of -0.4. This is indicative of osteopenia. This represents a BMD change of 4.0% compared to the prior exam. This is not statistically significant. The bone mineral density of the left femoral neck is 0.867 g/cm2, corresponding to a T-score of -1.2, and a Z-score of 0.4. This is indicative of osteopenia. This represents a BMD change of 16.4% compared to the prior exam. FRACTURE RISK: The FRAX index suggests a ten year probability of major osteoporotic fracture of 10.1%, and of hip fracture 2.4%. MM/XR DEXA axial skeleton IMPRESSION: Based on bone mineral density, and according to World Health Organization (WHO) criteria, the diagnosis is consistent with osteopenia. Statistically, 68% of repeat scans fall within 1 SD (+/- 0.010 g/cm2 for AP spine L1-L4) and 1 SD (+/- 0.012 g/cm2 for femur total) FRAX is a trademark of the [employer]'s [employer] Metabolic Bone Disease, a World Health Organization (WHO) Collaborating Center. Electronically signed by: Arya Caballero MD 10/24/2024 12:19 PM EDT
--- NOTE | ~2024-10-24 | MM_ITS ---
EXAMINATION: MM SCREENING DIGITAL BREAST TOMOSYNTHESIS, BILATERAL CLINICAL INFORMATION: Screening. Asymptomatic. COMPARISON: Mammography: Comparison is made with available priors TECHNIQUE: Digital breast mammography with tomosynthesis is performed in both the craniocaudal and mediolateral oblique views along with computer-aided detection (CAD). FINDINGS: There are scattered areas of fibroglandular density (ACR BI-RADS breast composition Category b). There are no significant masses, abnormal calcifications, or other abnormalities. MM/MM tomosynthesis screening BI IMPRESSION: No mammographic evidence of malignancy. ASSESSMENT: BI-RADS BI-RADS 1 - Negative RECOMMENDATION: Routine annual mammography screening. 1 year F/U This examination should not preclude the clinical evaluation of a suspicious palpable abnormality. This patient's information was entered into a reminder system with a target due date for their next mammogram. Electronically signed by: Desirae Cottrell DO 11/03/2024 09:23 AM EDT
--- OUTSIDE RECORDS SUMMARY | 2024-10-24 12:17 | XMS_ITS | Patient Health Record ---
Author Organization [facility] [place] Address [address] [place] [address] Care Team Providers Care Analytical Research Program Manager Name Role Phone Alexandro Perez MD Primary Care Provider Ilia Pineda Unavailable [phone] Reason For Referral No Information Medications Medication [...] Medicare National Govt Svcs Inc [address] [place] [address] [phone] [id number] Jeanine Epps Self - patient is the insured 7 [employer]) [address] [place] [address] [phone] [id number] Jeanine Epps Self - patient is the insured Medical (General) History Medical History History ICD Code Arthritis Cholesterol High blood pressure Chicken pox Joint implants/screws Surgical History Surgery Date(Month/Year) right hip replacement 02/08/2017
== END 2024-10-24 11:00 | disposition home or self-care (01) ==
LOC: HO.MAMMO 10:59
PROVIDERS: PCP Internal Medicine; Visit Provider Internal Medicine
DX: Z12.31 Encounter for screening mammogram for malignant neoplasm of breast (principal); Z13.820 Encounter for screening for osteoporosis; Z78.0 Asymptomatic menopausal state; M85.80 Other specified disorders of bone density and structure, unspecified site
CPT/HCPCS: 77063; 77067; 77080

== ENCOUNTER → 2024-10-24 11:30 | Outpatient (BNV) | payer MEDICARE, OTHER, SELFPAY | PROVIDERS: PCP Internal Medicine; Visit Provider Radiology Diagnostic Radiology | DX: E28.39 Other primary ovarian failure (principal) | CPT/HCPCS: 77080 ==

== ENCOUNTER 2024-11-06 12:05 | Outpatient (AMB) | payer MEDICARE, OTHER, SELFPAY ==
--- OUTSIDE RECORDS SUMMARY | 2024-07-11 03:15 | XMS_ITS ---
Author Organization Alexandro Perez MD Address [address] [place], [place] [phone] Care Team Providers Care Security Analyst Name Role Phone Alexandro Perez Primary Care Provider [phone] Results Component Value Reference Range Notes Complete Blood Count Auto Di ff Reviewed date:07/11/2024 12:34:42 PM Interpretation: Performing Lab:[facility], [address] [place] [phone] Notes/Report: White Blood Count 12.1 4.8-10.8 X10*3/uL [...] NRBC Abs Auto 0.000 0.0-0.012 X10*3/uL Comprehensive [place]. Panel Fa st Reviewed date:07/11/2024 12:34:20 PM Interpretation: Performing Lab:[facility], [address] [place] [phone] Notes/Report: Sodium 139 135-145 mmol/L Potassium 3.8 [...] Panel Reviewed date:07/11/2024 12:15:44 PM Interpretation: Performing Lab:[facility], [address] [place] [phone] Notes/Report: Triglycerides 86 <150 mg/dL Desirable Triglyceride: [...] Total Reviewed date:07/11/2024 12:15:51 PM Interpretation: Performing Lab:[facility], [address] [place] [phone] Notes/Report: Vitamin D 25-OH Total 64.6 >30 [...] A1c Reviewed date:07/11/2024 12:15:14 PM Interpretation: Performing Lab:[facility], [address] [facility], [place] [phone] Notes/Report: Hemoglobin A1c % 5.3 <6.0 % [...] average glucose, using the formula of the A8V-Yxdgnrs Average Glucose study (ADAG), Diabetes Care, Vol.31,#8, Nov. 2007 REASON FOR VISIT yearly fasting labs with lipids Encounters Encounter Location Date Provider Diagnosis Alexandro Perez MD [address] [place] [address] [place] [phone] 07/11/2024 Alexandro Perez Pure hypercholestero lemia E78.00 [...] Cult 07/11/2024 Next Appt Details Provider Name:Alexandro ryees, 02/19/2025 08:00:00 AM, [address] [place] [address], [address] [place] [address], [phone], Provider Name:Alexandro reyes, 02/26/2025 10:15:00 AM, [address] [place] [address], [address], [phone], Provider Name:Alexandro reyes, 08/30/2025 07:45:00 AM, [address] [place] [address], [address], [phone], Provider Name:Alexandro Brink ier, 09/06/2025 11:00:00 AM, [address], [address], [place], [phone], Progress Notes * Jeanine BACON TDOB: 2 (74 yo F)Acc No.[id number]:07/11/2024 Progress Note Patient: Jeanine LAMA Provider: Elpidio Perez MD :1950 A ge:73 Y S ex:Female Date:07/11/2024 Address:[address] [place] [address] [place] [id number] Subjective: * Chief Complaints: * 1 . [...] - 07/11/2024 07:15 AM) L AB: Comprehensive [place]. Panel Fast (Collection Date & Time - [...] - 07/11/2024 07:15 AM) L AB: Comprehensive [place]. Panel Fast (Collection Date & Time - [...] - 07/11/2024 07:15 AM) L AB: Comprehensive [place]. Panel Fast (Collection Date & Time - [...] 0 07/11/2024 Generated for Sahil dodd/Carmen/Sriitting on: 0 11/06/2024 12:46 PM EDT
--- NOTE | 2024-11-06 12:17 | A.OFFVIS_ITS ---
Vital Signs 11/06/24 12:19 Height 5 ft 5 in Weight 151 lb BMI 25.1 BP 180/76 H Blood Pressure Location Lt brachial Position Sitting Respiration 16 Pulse 92 Pulse Source Pulse Oximeter Pulse Oximetry (%) 96 Oxygen Delivery Method Room Air Intake Visit Reasons: s/p L3-L4 interlaminar FRANK Recycling Center Operator Required: No Accompanied by: Spouse Allergies No Known Allergies Allergy (Verified 11/06/24 12:23) Medication List - Last Reconciled 11/06/24 by Yuliya Siegel LPN atorvastatin 20 mg PO BEDTIME cholecalciferol (vitamin D3) 25 mcg PO DAILY diltiazem HCl ER mg PO hydrochlorothiazide 25 mg PO DAILY potassium chloride ER (Klor-Con) 10 mEq PO DAILY valsartan 320 mg PO DAILY HPI HPI s/p L3-L4 interlaminar FRANK: Details: History of Present Illness The patient is a 74-year-old female presenting with lumbar spinal stenosis and o steopenia management. The patient reports that the pain relief from injections lasts for a couple of weeks, which is consistent with previous experiences. She experiences weakness in the top of her legs, especially later in the day, and requires a cane for walking longer distances. Leans on the cart while shopping. No pain at rest or when she sits down after walking. The patient underwent a bone density test, which indicated she is borderline osteoporotic, but her bone quality has improved over time. She has not been on treatment for osteoporosis, and the improvement is not statistically sig nificant. Pain Description - Pain relief from injections lasts for a couple of weeks. - Weakness in the top of the legs, especially later in the day. - Requires a cane for walking longer distances. Physical Exam - Appears afebrile. - Alert and oriented. - Mood and affect appropriate. - Follows and participates in conversation appropriately. Results - Bone density test: Borderline osteoporotic, improved bone quality. Pain Management - Analgesia: Pain relief from injections lasts for a couple of weeks. - Activities of Daily Living: Requires a cane/cart/walker to lean on for walking longer distances. [facility] Medical History (Updated 11/07/24 @ 15:29 by Garfield Quiles MD) Hypercalcemia Colon cancer screening Tubular adenoma Hypercholesterinemic xanthomatosis HTN (hypertension) Surgical History Hx of arthroscopic knee surgery History of total right hip arthroplasty Hx of colonoscopy Family History Father Colon cancer Mother Colon cancer Breast CA Social History Household Members: Spouse and Children Alcohol intake: current Alcohol intake frequency: holidays/special occasions only Patient Tobacco Use Status: Current everyday Tobacco user Tobacco use type: Cigarette Cigarette Packs Per Day: 0.5 Cigarettes Per Day: 10 Physical Exam Vital Signs: Last Vital Signs Pulse 92 11/06/24 12:19 Resp 16 11/06/24 12:19 BP 180/76 H 11/06/24 12:19 Pulse Ox 96 11/06/24 12:19 Oxygen Delivery Method Room Air 11/06/24 12:19 BMI result Body Mass Index 25.1 Assessment & Plan Assessment & Plan (1) Spinal stenosis, lumbar region with neurogenic claudication: Code(s): M48.062 - Spinal stenosis, lumbar region with neurogenic claudication Category: Medical Plan Plan - Discussed risks and benefits of minimally invasive lumbar decompression for lumbar spinal stenosis. Patient agreed to proceed with L3/4, L4/5 MILD procedure for LSS w/ neurogenic claudication symptoms. - Monitor bone density and consider treatment options for osteopenia. Patient was informed and verbally consented to the use of an ambient scribe for clinic note documentation during this visit. Discussion Notes I discussed with the patient the option of minimally invasive lumbar decompression for her lumbar spinal stenosis, explaining that it involves scraping out part of the ligament without cutting through bone, and that it is minimally invasive with no significant recovery time. We also reviewed her bone density results, noting the improvement in bone quality, and discussed the lack of statistical significance in the changes, as well as the absence of current osteoporosis treatment. Patient Instructions - Consider watching the video on minimally invasive lumbar decompression for more information. - Continue monitoring bone health and discuss potential treatments with your healthcare provider. Coding Level of Care Code Est Pt Level 3 (55501) Diagnoses Spinal stenosis, lumbar region with neurogenic claudication M48.062
[2024-11-06 12:19] VITALS: BP 180/76; PULSE 92; RESP 16; O2SAT 96; BMI 25.1
--- OUTSIDE RECORDS SUMMARY | 2024-11-06 12:47 | XMS_ITS | Patient Health Record ---
Author Organization [facility] [place] Address [address] [place] [address] Care Team Providers Care Flight Attendant/Inflight Manager Name Role Phone Alexandro Perez MD Primary Care Provider Ilia Pineda Unavailable [phone] Reason For Referral No Information Medications Medication [...] Medicare National Govt Svcs Inc [address] [facility] [place] [address] [phone] [id number] Jeanine Epps Self - patient is the insured 7 [employer]) [address] [place] [address] [id number] Jeanine Epps Self - patient is the insured Medical (General) History Medical History History ICD Code Arthritis Cholesterol High blood pressure Chicken pox Joint implants/screws Surgical History Surgery Date(Month/Year) right hip replacement 02/08/2017
== END 2024-11-06 13:07 | disposition home or self-care (01) ==
LOC: HO.PMC 12:06
PROVIDERS: PCP Internal Medicine; Visit Provider Internal Medicine
DX: M48.062 Spinal stenosis, lumbar region with neurogenic claudication (principal)
CPT/HCPCS: 99213

== ENCOUNTER → 2024-11-06 12:05 | Outpatient (BNVA) | payer MEDICARE, OTHER, SELFPAY | PROVIDERS: PCP Internal Medicine; Visit Provider Internal Medicine | DX: M48.062 Spinal stenosis, lumbar region with neurogenic claudication (principal) | CPT/HCPCS: 99212 ==

== ENCOUNTER 2025-02-22 12:23 | Outpatient (REF) | payer MEDICARE, OTHER, SELFPAY | END 2025-02-22 12:24 | disposition home or self-care (01) | LOC: HO.LNP 12:23 | PROVIDERS: Visit Provider Internal Medicine | DX: R73.03 Prediabetes (principal); E78.00 Pure hypercholesterolemia, unspecified | CPT/HCPCS: 80061; 80076; 82947; 83036 ==

== ENCOUNTER 2025-02-23 08:19 | Outpatient (REF) | payer MEDICARE, OTHER, SELFPAY ==
--- OUTSIDE RECORDS SUMMARY | 2024-01-28 06:30 | XMS_ITS ---
Author Organization Alexandro Perez MD Address [address] [place], [place] [phone] Care Team Providers Care Food Assembler Name Role Phone Alxeandro Perez Primary Care Provider Allergies No Known [...] Problem Status W/U Status Risk Notes Problem [id number] Poor balance (R26.89) Active confirmed Vital Signs Blood pressure systolic 158 mm Hg 01/28/20 24 Blood pressure diastolic 90 mm Hg 024 Height 66 in 01/28/2024 Weight 172 lbs 01/28/2024 BMI 27.76 kg/m2 01/28/2024 Encounters Encounter Location Date Provider Diagnosis Alexandro Perez MD [address] [place] [phone] 01/28/2024 Alexandro Perez Bilateral leg edema R60.0 ; Essential [...] 6 Months, Reason: comp Provider Name:Alexandro reyes, 03/05/2025 11:15:00 AM, [address] [place] [address], [address], [phone], Provider Name:Alexandro reyes, 08/30/2025 07:45:00 AM, [address] [place] [address], [address], [phone], Provider Name:Alexandro Brink ier, 09/06/2025 11:00:00 AM, [address] [facility], [address], [place], [phone], Progress Notes * Jeanine BACON TDOB: 2 (73 yo F)Acc No.[id number]:01/28/2024 Progress Notes Patient: Jeanine Barton Provider: Elpidio Perez MD :1950 A ge:73 Y S ex:Female Date:01/28/2024 Address:[address] [place] [address], [place] [place] [id number] Subjective: * Chief Complaints: * 4 WEEK F/Lianne had not jose rafael her mammogram from [...] Elpidio Perez MD Date: Generated for Sahil dodd/Carmen/Genarosmitting on: 04/25/2024 08:23 AM EST History and Physical Notes * HPI [...]
--- OUTSIDE RECORDS SUMMARY | 2024-02-25 06:04 | XMS_ITS ---
Author Organization Alexandro Perez MD Address 10 [facility] [address] [place] [phone] Care Team Providers Care Hog Cutter Name Role Phone Alexandro Perez Primary Care Provider REASON FOR VISIT lab work for Wednesday02-28-2024 Encounters Encounter Location Date Provider Diagnosis Alexandro Perez MD [address] [facility] [address] [place] [phone] 02/25/2024 Alexandro Perez Plan Of Treatment Next Appt Details Provider Name:Alexandro Brink ier, 03/05/2025 11:15:00 AM, [address] [place] [address], [address], [phone], Provider Name:Alexandro Brink ier, 08/30/2025 07:45:00 AM, [address] [place] [address], [address], [phone], Provider Name:Alexandro reyes, 09/06/2025 11:00:00 AM, [address] [place] [address], [address], [phone], Progress Notes * BACONJeanine MORALEZ TDOB: 2 (73 yo F)Acc No.[id number]:02/25/2024 Patient: Jeanine Barton :1950 A ge:73 Y S ex:Female Address:[address] [place] [phone] * true * Date: Generated for Sahil dodd/Carmen/Sriitting on: 04/25/2024 08:22 AM EST
--- OUTSIDE RECORDS SUMMARY | 2024-04-07 05:33 | XMS_ITS ---
Author Organization Alexandro Perez MD Address [address] [facility] [address] [place] [phone] Care Team Providers Care Telephony Engineer Name Role Phone Alexandro Perez Primary Care Provider [phone] Encounters Encounter Location Date Provider Diagnosis Alexandro Perez MD [facility] [address] [place] [phone] 04/07/2024 Alexandro Perez Plan Of Treatment Next Appt Details Provider Name:Alexandro reyes, 03/05/2025 11:15:00 AM, [address] [place] [address], [address], [phone], Provider Name:Alexandro reyes, 08/30/2025 07:45:00 AM, [address] [place] [address], [address] [place] [address], [phone], Provider Name:Alexandro reyes, 09/06/2025 11:00:00 AM, [address] [place] [address], [address], [phone], Progress Notes * BACONJeanine CAVAZOS TDOB: 2 (73 yo F)Acc No.[id number]:04/07/2024 Patient: Jeanine Barton :1950 A ge:73 Y S ex:Female Address:[address] [place] [phone] * true * Date: Generated for Sahil dodd/Carmen/Erna on: 04/25/2024 08:22 AM EST
--- OUTSIDE RECORDS SUMMARY | 2024-04-17 03:15 | XMS_ITS ---
Author Organization Alexandro Perez MD Address [address] [facility] [address] [place] [phone] Care Team Providers Care Pre Owned Sales Manager Name Role Phone Alexandro Perez Primary Care Provider REASON FOR VISIT Calcium Encounters Encounter Location Date Provider Diagnosis Alexandro Perez MD 10 [facility] [address] [place] [phone] 04/17/2024 Alexandro Perez Hypercalcemia E83.52 Assessments Encounter Date Diagnosis (ICD Code) Assessment Notes Treatment Notes Treatment Clinical Notes Section Notes 04/17/2024 Hypercalcemia (ICD-10 - E83.52) Plan Of Treatment Next Appt Details Provider Name:Alexandro reyes, 03/05/2025 11:15:00 AM, [address] [place] [address], [address], [phone], Provider Name:Alexandro reyes, 08/30/2025 07:45:00 AM, [address] [place] [address], [address], [phone], Provider Name:Alexandro reyes, 09/06/2025 11:00:00 AM, [address] [place] [address], [address], [phone], Progress Notes * Jeanine BACON TDOB: 2 (74 yo F)Acc No.[id number]:04/17/2024 Progress Note Patient: Jeanine LAMA Provider: Elpidio Perez MD :1950 A ge:73 Y S ex:Female Date:04/17/2024 Address:[address] [place], [place] [phone] Subjective: * Chief Complaints: * 1 . [...] 0 04/17/2024 Generated for Sahil dodd/Carmen/Sriitting on: 04/25/2024 08:22 AM EST
--- OUTSIDE RECORDS SUMMARY | 2024-05-09 08:39 | XMS_ITS ---
Author Organization Alexandro Perez MD Address [address] [place] [phone] Care Team Providers Care Oracle Bpm Consultant Name Role Phone Alexandro Perez Primary Care Provider REASON FOR VISIT New Refill Request Medications Medication SIG (Take, Route, Fr equency, Duration) Notes Start Date End Date Status LORazepam 0.5 MG 1 tablet at bedtime as needed Orally Once a day for 10 days 05/09/2024 Ac tive Encounters Encounter Location Date Provider Diagnosis Alexandro Perez MD 10 [facility] [address] [place] [phone] 05/09/2024 Alexandro Perez Plan Of Treatment Medication Medication Name Sig Start Date Stop Date Notes LORazepam 0.5 MG 1 tablet at bedtime as needed Orally Once a day for 10 days 05/09/2024 Next Appt Details Provider Name:Alexandro reyes, 03/05/2025 11:15:00 AM, [address] [place] [address], [address] [place] [address], [phone], Provider Name:Alexandro reyes, 08/30/2025 07:45:00 AM, [address] [place] [address], [address], [phone], Provider Name:Alexandro Brink ier, 09/06/2025 11:00:00 AM, [address], [address], [place], [place], [phone], Progress Notes * Jeanine BACON TDOB: 2 (73 yo F)Acc No.[id number]:05/09/2024 Patient: Jeanine LAMA :1950 A ge:73 Y S ex:Female Address:[address] [place] [phone] * Refills Refill LORazepam Tablet, 0.5 MG, Orally, 10 Tablet, 1 tablet at bedtime as needed, Once a day, 10 days, Refills=0 * true * Date: Generated for Sahil dodd/Carmen/Sriitting on: 04/25/2024 08:22 AM EST
--- OUTSIDE RECORDS SUMMARY | 2024-07-11 02:15 | XMS_ITS ---
Author Organization Alexandro Perez MD Address [address] [place], [place] [phone] Care Team Providers Care Fine Arts Packer Name Role Phone Alexandro Perez Primary Care Provider Results Component Value Reference Range Notes Complete Blood Count Auto Di ff Reviewed date:07/11/2024 12:34:42 PM Interpretation: Performing Lab:[facility], [address] [place] [phone] Notes/Report: White Blood Count 12.1 4.8-10.8 X10*3/uL [...] NRBC Abs Auto 0.000 0.0-0.012 X10*3/uL Comprehensive [place]. Panel Fa st Reviewed date:07/11/2024 12:34:20 PM Interpretation: Performing Lab:[facility], [address] [place] [phone] Notes/Report: Sodium 139 135-145 mmol/L Potassium 3.8 [...] Panel Reviewed date:07/11/2024 12:15:44 PM Interpretation: Performing Lab:[facility], [address] [place] [phone] Notes/Report: Triglycerides 86 <150 mg/dL Desirable Triglyceride: [...] Total Reviewed date:07/11/2024 12:15:51 PM Interpretation: Performing Lab:[facility], [address] [place] [phone] Notes/Report: Vitamin D 25-OH Total 64.6 >30 [...] A1c Reviewed date:07/11/2024 12:15:14 PM Interpretation: Performing Lab:[facility], [address] [facility], [place] [address] Notes/Report: Hemoglobin A1c % 5.3 <6.0 % [...] average glucose, using the formula of the Y0J-Gqvfshx Average Glucose study (ADAG), Diabetes Care, Vol.31,#8, Nov. 2007 REASON FOR VISIT yearly fasting labs with lipids Encounters Encounter Location Date Provider Diagnosis Alexandro Perez MD [address] [place] [address] [place] [phone] 07/11/2024 Alexandro Perez Pure hypercholestero lemia E78.00 ; Essential hypertension [...] 07/11/2024 Next Appt Details Provider Name:Alexandro reyes, 03/05/2025 11:15:00 AM, [address] [place] [address], Suite [facility], [place], [place], [phone], Provider Name:Alexandro reyes, 08/30/2025 07:45:00 AM, [address] [place] [address], [address], [phone], Provider Name:Alexandro reyes, 09/06/2025 11:00:00 AM, [address] [place] [address], [address], [phone], Progress Notes * Jeanine BACON TDOB: 2 (74 yo F)Acc No.[id number]:07/11/2024 Progress Note Patient: Jeanine LAMA Provider: Elpidio Perez MD :1950 A ge:73 Y S ex:Female Date:07/11/2024 Address: [address] , [id number] Subjective: * Chief Complaints: * 1 . [...] - 07/11/2024 07:15 AM) L AB: Comprehensive [place]. Panel Fast (Collection Date & Time - [...] - 07/11/2024 07:15 AM) L AB: Comprehensive [place]. Panel Fast (Collection Date & Time - [...] - 07/11/2024 07:15 AM) L AB: Comprehensive [place]. Panel Fast (Collection Date & Time - [...] 07/11/2024 Generated for Sahil dodd/Carmen/Sriitting on: 1 04/25/2024 08:22 AM EST
--- OUTSIDE RECORDS SUMMARY | 2024-09-01 05:00 | XMS_ITS ---
Author Organization Alexandro Perez MD Address [address] [place], [place] [id number] Care Team Providers Care Metal Fabricator Name Role Phone Alexandro Perez Primary Care Provider [phone] Allergies No Known Allergies REASON FOR VISIT review labs, has not had her mammogram done from last year has appt and Bone Density, Accompanied by Medications Medication SIG (Take, Route, Frequency, Duration) Notes Start Date End Date Status Chantix Starting Month Hilario 0.5 MG X 11 & 1 MG X 42 DIRECTED PER PACKAGE TWICE A DAY for 23 Not-Taking Chantix Starting Month Hilario 0.5 MG X 11 & 1 MG X 42 as directed Orally twice a day for 30 days 12/01/2016 Not-Taki ng Zocor 20 MG TAKE 1 TABLET BY ALLISON TH EVERY DAY for 90 Not-Taking Valsartan-hydroCHLOROthia zide 160-12.5 MG 1 tablet Orally Once a day for 30 day(s) 08/24/2019 Not-Taking dilTIAZem HCl ER 60 MG TAKE 1 CAPSULE BY MOUTH EVERY DAY for 90 Active LORazepam 0.5 MG 1 tablet at bedtime as needed Orally Once a day for 10 days 05/09/2024 Active Atorvastatin Calcium 20 MG TAKE 1 TABLET BY MOUTH EVERY DAY for 90 Active Vitamin D (Cholecalciferol) 1000 UNIT 1 tablet Orally Once a day for 30 day(s) 02/11/2015 Active Ibuprofen 800 MG TAKE 1 TABLET BY ALLISON TH THREE TIMES A DAY WITH FOOD OR MILK NEEDED EVERY 8 HOURS FOR 90 DAYS for 30 Active Valsartan 320 MG TAKE 1 TABLET BY ALLISON TH EVERY DAY FOR 30 DAYS for 90 Active Social History Tobacco Use: Social History Observation [...] about q uitting Additional Findings: Tobacco User Currjordan t cigarette smoker, not currently using another form [...] Never (0 point) Points 4 Interpretation Positive Vital Signs Blood pressure systolic 178 mm Hg 09/02/19 25 Blood pressure diastolic 80 mm Hg 025 Height 66 in 09/01/2024 Weight 161 lbs 09/01/2024 BMI 25.98 kg/m2 09/01/2024 weight is down 11 pounds [facility] 10-25-24 Encounters Encounter Location Date Provider Diagnosis Alexandro Perez MD [address] [place] [address] [place] [phone] 09/01/2024 Alexandro Perez Disorder of parathyr oid gland, unspecified E21.5 ; Osteoporosis without current pathological fracture, unspecified osteoporosis type M81.0 ; Pure hypercholesterolemia E78.00 ; Essential hypertension I10 and Vitamin D deficiency E55.9 Assessments Encounter Date Diagnosis (ICD Code) Assessment Notes Treatment Notes Treatment Clinical Notes Section Notes 09/01/2024 Disorder of parathyr oid gland, unspecified (ICD-10 - E21.5) being followed by endocrine 09/01/2024 Osteoporosis without current pathological fracture, unspecified osteoporosis type (ICD-10 - M81.0) 09/01/2024 Pure hypercholesterolemia (ICD-10 - E78.00) well controlled 09/01/2024 Essential hypertensi on (ICD-10 - I10) good bp 09/01/2024 Vitamin D deficiency (ICD-10 - E55.9) good vit d level continue on presen Plan Of Treatment Treatment Notes Assessment Notes Disorder of parathyroid gland, unspecifi ed being followed by endocrine Pure hypercholesterolemia well controlle d Essential hypertension good bp Vitamin D deficiency good vit d level co ntinue on presen Next Appt Details Provider Name:Alexandro Brink ier, 03/05/2025 11:15:00 AM, [address] [place] [address], Suite [facility], [place], [place], [phone], Provider Name:Alexandro Brink ier, 08/30/2025 07:45:00 AM, [address] [place] [address], Suite [facility], [place], [place], [phone], Provider Name:Alexandro Brink ier, 09/06/2025 11:00:00 AM, [address] [place] [address], Suite [facility], [place], [place], [phone], Progress Notes * Jeanine BACON TDOB: 2 (74 yo F)Acc No.[id number]:09/01/2024 Patient: Jeanine LAMA Provider: Elpidio Perez MD :1950 A ge:74 Y S ex:Female Date:09/01/2024 Address:[address] [place] [id number] Subjective: * Chief Complaints: * 1 . Review labs. 2. has not had her mammogram done from last year has appt and Bone Density. 3. Accompanied by . * HPI: D epression Screening: PHQ-9 L ittle interest or pleasure in doing things N ot at all, F eeling down, depressed, or hopeless N ot at all, T rouble falling or staying asleep, or sleeping too much N ot at all, F eeling tired or having little energy N ot at all, P oor appetite or overeating N ot at all, F eeling bad about yourself or that you are a failure, or have let yourself or your family down N ot at all, T rouble concentrating on things, such as reading the newspaper or watching television N ot at all, M oving or speaking so slowly that other people could have noticed; or the opposite, being so fidgety or restless that you have been moving around a lot more than usual N ot at all, T houghts that you would be better off or of hurting yourself in some way N ot at all, T otal Score 0 . I nterpretation and Intervention D epression Screening Findings N egative, F ollow-Up for Depression : review of PHQ-9 found negative result, no follow-up needed. C ommunication Needs: Communication Needs D oes the patient have a hearing impairment N o, D oes the patient have a vision impairment? Y es, I f yes, what is the vision impairment? G lasses, D oes the patient have a cognition impairment? N o. F all Risk: History H ave you had any falls with injury in the past year? N o, H ave you had two or more falls in the past year? N o. S MAURICIO Questions: SDOH Questions I n the past year have you been worried about losing housing? N o, I n the past year have you or any family members you live with been unable to get any of the following when it was really needed? Check all that apply: N one. S ymptom(s): patient is a 74 yo female here for visit with review of recent labs and follow up of chronic issues h ad cortisone shot and helped a little for a month. * ROS: G eneral/Constitutional: Change in appetite d enies. C hills d enies. F ever d enies. O phthalmologic: Blurred vision d enies. D ischarge d enies. P ain d enies. E NT: Decreased hearing d enies. S ore throat d enies.?Swollen glands d enies. E ndocrine: Cold intolerance d enies. E xcessive thirst d enies. H eat intolerance d enies. W eight loss d enies. R espiratory: Cough d enies. S hortness of breath at rest d enies. S hortness of breath with exertion d enies. W heezing d enies. C ardiovascular: Chest pain at rest d enies. C hest pain with exertion?denies. I rregular heartbeat d enies. S hortness of breath d enies. ? G astrointestinal: Abdominal pain d enies. C hange in bowel habits d enies. D iarrhea d enies. N ausea d enies. R ectal bleeding d enies. V omiting d enies . G enitourinary: Blood in urine d enies. D ifficulty urinating d enies. F requent urination d enies. U rinary incontinence D enies. M usculoskeletal: Painful joints d enies. W eakness d enies. ? S kin: Dry skin d enies. I tching d enies. D enies?Mole(s), changes in moles, new moles or any lesions of concern. D enies P hotosensitivity. R hermelinda d enies. N eurologic: Dizziness d enies. F ainting d enies. H eadache?denies. * Medical History: c olonoscopy 2010 due in 3 to 5 years; repeat done 04/10/14 by Jeanine Benz M.D.; Colonoscopy done 01/04/18 repeat in 2yrs; Colonoscopy done 07/04/21 awaiting path, Colonoscopy 2021 tubular adenoma repeat in 3 years. * Family History: F ather: 73 yrs, diagnosed with Cancer. M other: 79 yrs, diagnosed with Cancer. 3 brother(s) . 3 son(s) , 3 daughter(s) . . Father-Colon Cancer Mother- Colon Cancer 1 brother suicide, Denies mental health/substance abuse family history. * Social History: T obacco Use: T obacco Use/Smoking P atient is a c urrent smoker, H ow often do you smoke cigarettes? e very day, H ow many cigarettes a day do you smoke? 6 -10, H ow soon after you wake up do you smoke your first cigarette? 6 -30 minutes, A re you interested in quitting? T hinking about quitting, A dditional Findings: Tobacco User C urrent cigarette smoker, not currently using another form of tobacco. D rugs/Alcohol: A lcohol Screen D id you have a drink containing alcohol in the past year? Y es, H ow often did you have a drink containing alcohol in the past year? 4 or more times a week (4 points), H ow many drinks did you have on a typical day when you were drinking in the past year? 1 or 2 drinks (0 point), H ow often did you have 6 or more drinks on one occasion in the past year? N ever (0 point), P oints 4 , I nterpretation P ositive. M iscellaneous: C affeine: yes, frequency:, 1-2 cups per day. Children: yes. Community involvements: no. Exercise: no. Home smoke detector use: yes. Housing: owning. Living with: spouse, family. Marital status: . Occupation: retired. Pets: none, 1 dog 1 cat 1 turtle. Travel outside of the [place]: no. * Medications: T aking Vitamin D (Cholecalciferol) 1000 UNIT Tablet 1 tablet Orally Once a day , Taking Atorvastatin Calcium 20 MG Tablet TAKE 1 TABLET BY MOUTH EVERY DAY , Taking Valsartan 320 MG Tablet TAKE 1 TABLET BY MOUTH EVERY DAY FOR 30 DAYS , Taking Ibuprofen 800 MG Tablet TAKE 1 TABLET BY MOUTH THREE TIMES A DAY WITH FOOD OR MILK NEEDED EVERY 8 HOURS FOR 90 DAYS , Taking LORazepam 0.5 MG Tablet 1 tablet at bedtime as needed Orally Once a day , Taking dilTIAZem HCl ER 60 MG Capsule Extended Release 12 Hour TAKE 1 CAPSULE BY MOUTH EVERY DAY , Not-Taking/PRN Valsartan-hydroCHLOROthiazide 160-12.5 MG Tablet 1 tablet Orally Once a day , Not-Taking/PRN Chantix Starting Month Hilario 0.5 MG X 11 & 1 MG X 42 Tablet as directed Orally twice a day , Not-Taking/PRN Chantix Starting Month Hilario 0.5 MG X 11 & 1 MG X 42 Tablet DIRECTED PER PACKAGE TWICE A DAY , Not-Taking/PRN Zocor 20 MG Tablet TAKE 1 TABLET BY MOUTH EVERY DAY , Medication List reviewed and reconciled with the patient * Allergies: N .K.D.A. Objective: * Vitals: H t: 66, Wt: 161, BMI:25.98, BP:178/80, Repeat BP:140/80, Wt-k.03. weight is down 11 pounds since 01-28-24. * P ast Orders: L ab:Lipid Panel (Order Date - 07/11/2024) (Collection Date & Time - 07/11/2024 07:15 AM) Value Reference Range Triglycerides 86 <150 - mg/dL Cholesterol 208 H <200 - mg/dL LDL Cholesterol Calculated 94 <100 - mg/dL HDL Cholesterol 97 >40 - mg/dL L ab:Vitamin D 25-OH Total (Order Date - 07/11/2024) (Collection Date & Time - 07/11/2024 07:15 AM) Value Reference Range Vitamin D 25-OH Total 64.6 >30 - ng/mL L ab:Hemoglobin A1c (Order Date 07/11/2024) (Collection Date & Time - 07/11/2024 07:15 AM) Value Reference Range Hemoglobin A1c % 5.3 <6.0 - % Estimated Average Glucose 105 - mg/dL L ab:Complete Blood Count Auto Diff (Order Date - 07/11/2024) (Collection Date & Time - 07/11/2024 07:15 AM) Value Reference Range White Blood Count 12.1 H 4.8-10.8 - X10*3/uL Red Blood Count 4.53 4.20-5.50 - X10*6/uL Hemoglobin 15.1 12.0-16.0 - g/dl Hematocrit 43.6 37.0-47.0 - % Mean Corpuscular Volume 96.2 80.0-98.0 - fL Mean Corpuscular Hemoglobin 33.3 H 27.0-33.0 - pg Mean Corpuscular HGB Conc 34.6 31.0-35.0 - g/ dl Red Cell Distribution Width 13.9 11.0-16.0 - % Platelet Count 393 160-400 - X10*3/uL Mean Platelet Volume 9.6 9.4-12.3 - fL Neutrophils Percent Auto 75.3 H 45-73 - % Imm Gran Pct Auto 0.7 H 0.0-0.4 - % Lymphocytes Percent Auto 16.1 L 20-40 - % Monocytes Percent Auto 7.8 2-11 - % Eosinophils Percent Auto 0.0 0-4 - % Basophils Percent Auto 0.1 0-2 - % NRBC Pct Auto 0.0 0.0-0.2 - /100WBC Neutrophils Absolute Auto 9.1 H 2.0-8.3 - x10* 3/uL Imm Gran Abs Auto 0.09 H 0.00-0.03 - X10*3/uL Lymphocytes Absolute Auto 1.9 1.2-4.9 - X10* 3/uL Monocytes Absolute Auto 0.9 0.1-1.2 - X10*3/ uL Eosinophils Absolute Auto 0.0 0.0-0.4 - X10* 3/uL Basophils Absolute Auto 0.0 0.0-0.2 - X10*3/ uL NRBC Abs Auto 0.000 0.0-0.012 - X10*3/uL L ab:Comprehensive [place]. Panel Fast (Order Date - 07/11/2024) (Collection Date & Time - 07/11/2024 07:15 AM) Value Reference Range Sodium 139 135-145 - mmol/L Bilirubin Total 0.9 0.0-1.0 - mg/dL Aspartate Amino Transferase 38 H 5-31 - U/L Alanine Aminotransferase 23 0-31 - U/L Total Protein 7.3 6.5-8.0 - g/dL Albumin Level 4.5 3.5-5.0 - g/dL Alkaline Phosphatase 53 39-117 - U/L Potassium 3.8 3.3-5.1 - mmol/L Chloride 108 96-108 - mmol/L Carbon Dioxide 23 22-29 - mmol/L Anion Gap 12 12-20 - Blood Urea Nitrogen 19 H 9-16 - mg/dL Creatinine 0.72 0.5-1.4 - mg/dL Estimated Glomerular Filt Rate > 60 - Glucose Fasting 109 H 60-99 - mg/dL Calcium 10.3 H 8.4-10.2 - mg/dL * Examination: G eneral Examination: GENERAL APPEARANCE: w ell developed, well nourished, in no acute distress. HEAD: n ormocephalic, atraumatic. EYES: p upils equal, round, reactive to light and accommodation, sclera non-icteric. EARS: n ormal. ORAL CAVITY: m ucosa moist. THROAT: c lear. NECK/THYROID: n leonardo supple, full range of motion, no cervical lymphadenopathy, no bruits. SKIN: w arm and dry, no suspicious lesions. HEART: r egular rate and rhythm, S1, S2 normal, no murmurs.? LUNGS: c lear to auscultation bilaterally. BREASTS: d eclined. ABDOMEN: s oft, nontender, nondistended, bowel sounds present, normal, no organomegaly , no masses palpable. RECTAL EXAM: d one by head refrigeration engineer. FEMALE GENITOURINARY: d one by head refrigeration engineer. EXTREMITIES: n o clubbing, cyanosis, or edema. NEUROLOGIC: n onfocal, motor strength normal upper and lower extremities, sensory exam intact. Assessment: * Assessment: 1. D isorder of parathyroid gland, unspecified - E21.5 (Primary) 2 . O steoporosis without current pathological fracture, unspecified osteoporosis type - M81.0 ?3. P ure hypercholesterolemia - E78.00 4 . E ssential hypertension - I10 5. V itamin D deficiency - E55.9 Plan: * Treatment: 2. P ure hypercholesterolemia Notes: well controlled 3. E ssential hypertension Notes: good bp 4. V itamin D deficiency Notes: good vit d level continue on presen * Preventive Medicine: Counseling: C are goal follow-up plan: C ounseling for abnormal BMI provided?Yes, A joão Normal BMI Follow-up Elpidio patton encouragement to exercise. * * The named appointment provid er may or may not be the originator of this progress note, and it is not deemed complete until electronically signed by the appointment provider. Sign off status: Pending * Provider: Elpidio Perez MD Date: 0 09/01/2024 Generated for Sahil dodd/Carmen/Sriitting on: 04/25/2024 08:23 AM EST History and Physical Notes * HPI (History of Present Illness) Category Sub-Category Detail Notes Category Not es Symptom(s) patient is a 74 yo female here for visit with review of recent labs and follow up of chronic issues had cortisone shot and helped a little for a month Depression Screening PHQ-9 Little inte rest or pleasure in doing things: Not at all Feeling down, depressed, or hopeless: No t at all Trouble falling or staying asleep, or sl eeping too much: Not at all Feeling tired or having little energy: N ot at all Poor appetite or overeating: Not at all Feeling bad about yourself o r that you are a failure, or have let yourself or your family down: Not at all Trouble concentrating on thi ngs, such as reading the newspaper or watching television: Not at all Moving or speaking so slowly that other people could have noticed; or the opposite, being so fidgety or restless that you have been moving around a lot more than usual: Not at all Thoughts that you would be b chikis off or of hurting yourself in some way: Not at all Total Score: 0 Interpretation and Intervention Depression Janes ernst Findings: Negative Follow-Up for Depression: : review of PH Q-9 found negative result, no follow-up needed SDOH Questions SDOH Questions In the past year have you been worried about losing housing?: No In the past year have you or any family members you live with been unable to get any of the following when it was really needed? Check all that apply:: None Fall Risk History Have you had any falls with injury i n the past year?: No Have you had two or more falls in the st year?: No Communication Needs Communication Needs Does the patient have a hearing impairment: No Does the patient have a vision impairmen t?: Yes If yes, what is the vision impairment?: Glasses Does the patient have a cognition impair ment?: No Examination Category Sub-Category Detail Notes Category Not es General Examination GENERAL APPEARANCE: well dev eloped, well nourished, in no acute distress HEAD: normocephalic, atrau matic EYES: pupils equal, round, reactive to light and accommodation, sclera non-icteric EARS: normal THROAT: clear NECK/THYROID: neck supple, full ra nge of motion, no cervical lymphadenopathy, no bruits HEART: regular rate and rhy thm, S1, S2 normal, no murmurs LUNGS: clear to auscultatio n bilaterally ABDOMEN: soft, nontender, non distended, bowel sounds present, normal, no organomegaly , no masses palpable NEUROLOGIC: nonfocal, motor stre ngth normal upper and lower extremities, sensory exam intact SKIN: warm and dry, no mike picious lesions EXTREMITIES: no clubbing, cyanosi s, or edema BREASTS: declined RECTAL EXAM: done by head refrigeration engineer FEMALE GENITOURINARY: done by head refrigeration engineer ORAL CAVITY: mucosa moist
--- OUTSIDE RECORDS SUMMARY | 2024-12-18 10:27 | XMS_ITS ---
Author Organization Alexandro Perez MD Address [address] [facility] [address] [place] [phone] Care Team Providers Care Canvas Cutter Machine Name Role Phone Alexandro Perez Primary Care Provider REASON FOR VISIT referral Encounters Encounter Location Date Provider Diagnosis Alexandro Perez MD [address] [facility] [address] [place] [phone] 12/18/2024 Alexandro Perez Plan Of Treatment Next Appt Details Provider Name:Alexandro reyes, 03/05/2025 11:15:00 AM, [address] [place] [address], [address], [phone], Provider Name:Alexandro reyes, 08/30/2025 07:45:00 AM, [address] [place] [address], [address], [phone], Provider Name:Alexandro reyes, 09/06/2025 11:00:00 AM, [address] [place] [address], [address], [phone], Progress Notes * Jeanine BACON TDOB: 2 (74 yo F)Acc No.[id number]:12/18/2024 Patient: Jeanine LAMA :1950 A ge:74 Y S ex:Female Address:[address] [place] [phone] * true * Date: Generated for Sahil dodd/Carmen/Sriitting on: 04/25/2024 08:22 AM EST
--- OUTSIDE RECORDS SUMMARY | 2025-02-22 03:30 | XMS_ITS ---
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 2007 REASON FOR VISIT FASTING LIPIDS Encounters Encounter Location Date Provider Diagnosis Alexandro Perez MD [address] [place] [phone] 02/22/2025 Alexandro Perez Pure hypercholestero lemia E78.00 and Prediabetes R73.03 Assessments Encounter Date Diagnosis (ICD Code) Assessment Notes Treatment Notes Treatment Clinical Notes Section Notes 02/22/2025 Pure hypercholesterolemia (ICD-10 - E78.00) 02/22/2025 Prediabetes (ICD-10 - R73.03) Plan Of Treatment Pending Test Test Name Order Date Liver Panel 02/22/2025 Glucose Fasting 02/22/2025 Lipid Panel with Reflex 02/22/2025 Next Appt Details Provider Name:Alexandro Anderson Cuba ier, 03/05/2025 11:15:00 AM, [address] [place] [address], [address], [phone], Provider Name:Alexandro Anderson Cuba ier, 08/30/2025 07:45:00 AM, [address] [place] [address], [phone], Provider Name:Alexandro Anderson Cuba ier, 09/06/2025 11:00:00 AM, [address] [place] [address], [phone], Progress Notes * Jeanine BACON TDOB: 2 (74 yo F)Acc No.[id number]:02/22/2025 Progress Note Patient: Jeanine LAMA Provider: Elpidio Perez MD :1950 A ge:74 Y S ex:Female Date:02/22/2025 Address:[address] [place], [place] [id number] Subjective: * Chief Complaints: * 1 . FASTING LIPIDS. * Medical History: Objective: * Vitals: Assessment: * Assessment: 1. P ure hypercholesterolemia - E78.00 (Primary) 2 . P rediabetes - R73.03? Plan: * Treatment: 2. P rediabetes L AB: Liver Panel L AB: Glucose Fasting L AB: Lipid Panel with Reflex L AB: Hemoglobin A1c (Collection Date & [...] Perez MD Date: 04/24/2024 Generated for Sahil dodd/Carmen/Erna on: 04/25/2024 08:23 AM EST
--- OUTSIDE RECORDS SUMMARY | 2025-02-22 10:33 | XMS_ITS ---
Author Organization Alexandro Perez MD Address [address] [facility] [address] [place] [phone] Care Team Providers Care It Admin Name Role Phone Alexandro Perez Primary Care Provider REASON FOR VISIT redraw Encounters Encounter Location Date Provider Diagnosis Alexandro Perez MD [address] [facility] [address] [place] [address] [phone] 02/22/2025 Alexandro Perez Plan Of Treatment Next Appt Details Provider Name:Alexandro Brink ier, 03/05/2025 11:15:00 AM, [address] [place] [address], [address], [phone], Provider Name:Alexandro Brink ier, 08/30/2025 07:45:00 AM, [address] [place] [address], [address], [phone], Provider Name:Alexandro reyes, 09/06/2025 11:00:00 AM, [address] [place] [address], [address], [phone], Progress Notes * BACONJeanine CAVAZOS TDOB: 2 (74 yo F)Acc No.[id number]:02/22/2025 Patient: Jeanine LAMA :1950 A ge:74 Y S ex:Female Address: [place] [address] * true * Date: Generated for Sahil dodd/Carmen/Genarosmitting on: 04/25/2024 08:22 AM EST
--- OUTSIDE RECORDS SUMMARY | 2025-02-23 08:23 | XMS_ITS | Patient Health Record ---
Author Organization [facility] dare[facility] PearsonVazquez Address [address] [place] [address] Care Team Providers Care Psychology Assistant Name Role Phone Alexandro ePrez MD Primary Care Provider Ilia Schuster [facility] [phone] Reason For Referral No Information Medications Medication [...] Medicare National [employer] [address] [facility] [address] [phone] [id number] Jeanine Epps Self - patient is the insured [facility] [address] [place] [address] [id number] Jeanine Epps Self - patient is the insured Medical (General) History Medical History History ICD Code Arthritis Cholesterol High blood pressure Chicken pox Joint implants/screws Surgical History Surgery Date(Month/Year) right hip replacement 02/08/2017
--- OUTSIDE RECORDS SUMMARY | 2025-02-23 08:24 | XMS_ITS | Patient Health Record ---
Author Organization Alexandro Perez MD Address [address] [place], [place] [phone] Care Team Providers Care Orthodontic Technician Name Role Phone Alexandro Perez Primary Care Provider Allergies No Known Allergies Results Component Value Reference Range Notes Complete Blood Count Auto Di ff Reviewed date:07/11/2024 12:34:42 PM Interpretation: Performing Lab:[facility], [address] [place] [phone] Notes/Report: White Blood Count 12.1 4.8-10.8 X10*3/uL [...] NRBC Abs Auto 0.000 0.0-0.012 X10*3/uL Comprehensive [place]. Panel Fa st Reviewed date:07/11/2024 12:34:20 PM Interpretation: Performing Lab:[address] [address] Notes/Report: Sodium 139 135-145 mmol/L Potassium 3.8 [...] Panel Reviewed date:07/11/2024 12:15:44 PM Interpretation: Performing Lab:[address] [address] Notes/Report: Triglycerides 86 <150 mg/dL Desirable Triglyceride: [...] Total Reviewed date:07/11/2024 12:15:51 PM Interpretation: Performing Lab:[address] [address] Notes/Report: Vitamin D 25-OH Total 64.6 >30 [...] A1c Reviewed date:07/11/2024 12:15:14 PM Interpretation: Performing Lab:[facility] [address], [place] [address] Notes/Report: Hemoglobin A1c % 5.3 <6.0 % [...] average glucose, using the formula of the U9Z-Silrxev Average Glucose study (ADAG), Diabetes Care, Vol.31,#8, 2007 Hemoglobin A1c Reviewed date:02/22/2025 04:53:25 PM Interpretation: Performing Lab:[facility], [address] [place] [phone] Notes/Report: Hemoglobin A1c % 4.9 <6.0 % [...] average glucose, using the formula of the U3T-Hyemxcg Average Glucose study (ADAG), Diabetes Care, Vol.31,#8, 2007 MM tomosynthesis screening B I Reviewed date:11/03/2024 12:33:30 PM Interpretation: Performing Lab: Notes/Report: [facility] [address] [place] [address] Mammography Report Signed Patient: Jeanine Epps MR#: [id number] 67 : 1950 Acct:[id number] Age/Sex: 74 / F ADM Date: 10/24/24 Loc: AYAD Attending Dr: Garfield Quiles MD Ordering Physician: Garfield Quiles MD Results: 1Negative Date of Service: 10/24/24 Follow Up: 1 Year From Orig ina Mammogram Procedure(s): MM tomosynthesis screening BI Accession Number(s): [id number] cc: Alexandro Perez MD; Garfield Quiles MD [...] 11/03/24 0923 DD/ 1105 TD/TT: 10/24/24 1130 Bottle Cleaner: [facility] [address] [place] [address] Mammography Report Signed Patient: Eugenia Epps MR#: [id number] 67 : 1950 Acct:[id number] Age/Sex: 74 / F ADM Date: 10/24/24 Loc: HO.MAMMO Attending Dr: Garfield Quiles MD Ordering Physician: Garfield Quiles MD Results: 1Negative Date of Service: 10/24/24 Follow Up: 1 Year From Orig ina Mammogram Procedure(s): MM tomosynthesis screening BI Accession Number(s): [id number] cc: Alexandro Perez MD; Kb,Garfield M. Luis Enrique MD EXAMINATION: MM SCREENING DIGITAL BREAST TOMOSYNTHESIS, [...] 11/03/24 0923 DD/ 1105 TD/TT: 10/24/24 1130 Bottle Cleaner: XR DEXA axial skeleton Reviewed date:10/24/2024 02:51:48 PM Interpretation: Performing Lab: Notes/Report: [facility] [address] [place], [place] [address] Mammography Report Signed Patient: Jeanine Epps MR#: [id number] 67 : 1950 Acct:[id number] Age/Sex: 74 / F ADM Date: 10/24/24 Loc: HO.MAMMO Attending Dr: Garfield Quiles MD Ordering Physician: Garfield Quiles MD Results: Date of Service: 10/24/24 Follow Up: Procedure(s): XR DEXA axial skeleton Accession Number(s): [id number] cc: Alexandro Perez MD; Garfield Quiles MD EXAMINATION: DXA BONE DENSITY AXIAL HISTORY: M85.80 - Other specified disorders of bone density and structure, unspecified... TECHNIQUE: [employer] Dual energy absorptiometry (DEXA) of the lumbar [...] is a trademark of the [employer]'s [place] for Metabolic Bone Disease, a World Health Organization (WHO) Collaborating Center. Electronically signed by: Arya Caballero MD 10/24/2024 12:19 PM EDT Dictated By: Arya Caballero MD Signed By: <Electronically signed by Arya Caballero MD in OV> 10/24/24 1219 DD/ 1140 TD/TT: 10/24/24 1155 Bottle Cleaner: [facility] [address] [place] [address] Mammography Report Signed Patient: Eugenia Epps MR#: [id number] 67 : 1950 Acct:[id number] Age/Sex: 74 / F ADM Date: 10/24/24 Loc: HO.MAMMO Attending Dr: Garfield Quiles MD Ordering Physician: Garfield Quiles MD Results: Date of Service: 10/24/24 Follow Up: Procedure(s): XR DEX A axial skeleton Accession Number(s): [id number] cc: Alexandro Perez MD; Garfield Quiles MD EXAMINATION: DXA BON E DENSITY AXIAL HISTORY: M85.80 - Other specified disorders of bone density and structure, unspecified... TECHNIQUE: [employer] Dual energy absorptiometry (DEXA) of the lumbar [...] is a trademark of the [employer]'s [place] for Metabolic Bone Disease, a World Health Organization (WHO) Collaborating Center. Electronically jason d by: Arya Caballero MD 10/24/2024 12:19 PM EDT Dictated By: Arya Caballero MD Signed By: <Electronically signed by Arya Caballero MD in OV> 10/24/24 1219 DD/ 1140 TD/TT: 10/24/24 1155 Bottle Cleaner: Reason For Referral Reason needs colonoscopy Diagnosis [...] Valsartan 320 MG TAKE 1 TABLET BY ALILSON TH EVERY DAY FOR 30 DAYS for [...] about q uitting Additional Findings: Tobacco User Curren t cigarette smoker, not currently using another [...] Problem Status W/U Status Risk Notes Problem 25580122 Hypokalemia (E87.6) Active confirmed Problem 546380673 Tubular adenoma (D36.9) Active confirmed Problem 46468404 Vitamin D defici ency (E55.9) Active confirmed Problem 50602618 Anxiety (F41.9) Active confirmed Problem Disorder of parathyroid gland (96864669) Disorder of parathyroid gland, unspecified (E21.5) Active confirmed Problem Hypercalcemia (78619735) Hypercalcemia (E83.52) Active confirmed Problem 3538420 Panlobular emphy sema (J43.1) Active confirmed Problem 23005800 Essential hypert ension (I10) Active confirmed Problem 36624019 Hyperparathyroid ism (E21.3) Active confirmed Problem 380234557 History of abnor mal mammogram (Z87.898) Active confirmed Problem 41626368 Current smoker (F17.200) Active confirmed Problem 915299930 Spinal stenosis of lumbosacral region (M48.07) Active confirmed Problem 431365232 Prediabetes (R73.03) Active confirmed Problem 850141781 Pure hypercholesterolemia (E78.00) Active confirmed Problem 70471260 Osteoporosis wit hout current pathological fracture, unspecified osteoporosis type (M81.0) Active confirmed Problem 571124848 Poor balance (R26.89) Active confirme d Vital [...] Alexandro Perez MD [address] [place] [id number] 07/11/2024 Alexandro Perez Pure hypercholestero lemia E78.00 ; Essential hypertension I10 ; Vitamin D deficiency E55.9 and Prediabetes R73.03 Alexandro Perez MD [address] [place] [id number] 09/01/2024 Alexandro Perez Disorder of parathyr oid gland, unspecified E21.5 ; Osteoporosis without current pathological fracture, unspecified osteoporosis type M81.0 ; Pure hypercholesterolemia E78.00 ; Essential hypertension I10 and Vitamin D deficiency E55.9 Alexandro Perez MD [address] [facility] [id number] 02/22/2025 Alexandro Perez Pure hypercholestero lemia E78.00 and Prediabetes R73.03 Alexandro Perez MD [address] [place] [id number] 02/25/2024 Alexandro Perez MD [address] [id number] 04/07/2024 Alexandro Perez MD [address] [id number] 12/18/2024 Alexandro Perez MD [address] [id number] 02/22/2025 [address]ro [address] [place] [id number] 05/09/2024 Alexandro Perez Assessments Encounter Date Diagnosis (ICD Code) Assessment Notes Treatment Notes Treatment Clinical Notes Section Notes 07/11/2024 Pure hypercholesterolemia (ICD-10 - E78.00) 09/01/2024 Disorder of parathyr oid gland, unspecified (ICD-10 - E21.5) being followed by endocrine 02/22/2025 Pure hypercholesterolemia (ICD-10 - E78.00) 07/11/2024 Essential hypertensi on (ICD-10 - I10) 09/01/2024 Osteoporosis without current pathological fracture, unspecified osteoporosis type (ICD-10 - M81.0) 02/22/2025 Prediabetes (ICD-10 - R73.03) 07/11/2024 Vitamin D deficiency (ICD-10 - E55.9) 09/01/2024 Pure hypercholesterolemia (ICD-10 - E78.00) well controlled 07/11/2024 Prediabetes (ICD-10 - R73.03) 09/01/2024 Essential hypertensi on (ICD-10 - I10) good bp 09/01/2024 Vitamin D deficiency (ICD-10 - E55.9) good vit d level continue on presen Plan Of Treatment Pending Test Test Name Order Date Electrocardiogram (EKG) 12/16/2018 Electrocardiogram (EKG) 12/03/2017 US BREAST VERO 10/30/2013 MRI LUMBAR SPINE NO CONTRAST 10/14/2023 BONE DENSITY DEXA 12/28/2019 MAMMOGRAM DIGITAL BILATERAL SCREEN 09/12 Liver Panel 02/22/2025 Glucose Fasting 02/22/2025 Lipid Panel with Reflex 02/22/2025 Microalbumin, Random 07/11/2024 UA ClnCatch+Micro w/rflx Cult 07/11/2024 Next Appt Details Provider Name:Alexandro Brink ier, 03/05/2025 11:15:00 AM, [address] [place] [address], [address], [phone], Provider Name:Alexandro Brink ier, 08/30/2025 07:45:00 AM, [address] [place] [address], [address], [phone], Provider Name:Alexandro Brink ier, 09/06/2025 11:00:00 AM, [address] [place] [address], [address], [phone], Insurance Providers Payer Name Payer Address Payer Phone Subscriber Number Group Number Insured Name Patient Relationship to Insured Coverage Start Date Coverage End Date MEDICARE [employer] [address] [place] [address] [id number] Jeanine Epps Self - patient is the insured [facility] [address] [place] [phone] [id number] Jeanine Epps Self - patient is [...]
[2025-02-23 10:52] LABS: Alanine Aminotransferase 17 U/L (0-31); Albumin Level 4.5 g/dL (3.5-5.0); Alkaline Phosphatase 65 U/L (39-117); Aspartate Amino Transferase 27 U/L (5-31); Cholesterol 186 mg/dL (<200); HDL Cholesterol 87 mg/dL (>40); Total Protein 7.2 g/dL (6.5-8.0); Triglycerides 79 mg/dL (<150)
[2025-02-23 15:12] LABS: Reflex LDLD? No
== END 2025-02-23 08:20 | disposition home or self-care (01) ==
LOC: HO.10HDL 08:19
PROVIDERS: Visit Provider Internal Medicine
DX: R73.03 Prediabetes (principal); E78.00 Pure hypercholesterolemia, unspecified
CPT/HCPCS: 36415; 80061; 80076; 82947

== ENCOUNTER 2025-03-19 08:21 | Day surgery (SDC) | payer MEDICARE, OTHER, SELFPAY ==
--- OUTSIDE RECORDS SUMMARY | 2023-12-28 03:00 | XMS_ITS ---
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 Name Role Phone Alexandro Perez Primary Care Provider REASON FOR VISIT CALCIUM, PARATHYROID HORMONE INTACTN Encounters Encounter Location Date Provider Diagnosis Alexandro Perez MD [address] [facility] [address] [place] [address] [phone] 12/28/2023 Alexandro Perez Plan Of Treatment Next Appt Details Provider Name:Alexandro reyes, 02/22/2025 08:30:00 AM, [address] [place] [address], [address], [phone], Provider Name:Alexandro reyes, 03/05/2025 11:15:00 AM, [address] [place] [address], [address], [phone], Provider Name:Alexandro reyes, 08/30/2025 07:45:00 AM, [address] [place] [address], [address], [phone], Provider Name:Alexandro reyes, 09/06/2025 11:00:00 AM, [address] [place] [address], [address], [phone], Progress Notes * Jeanine BACON TDOB: 2 (74 yo F)Acc No.[id number]:12/28/2023 Progress Note Patient: Jeanine LAMA Provider: Elpidio Perez MD :1950 A ge:73 Y S ex:Female Date:12/28/2023 Address:[address] [place] [address] [id number] Subjective: * Chief Complaints: * 1 . CALCIUM, PARATHYROID HORMONE INTACTN. * Medical History: Objective: * Vitals: Assessment: Plan: * Treatment: * * The named appointment provid er may or may not be the originator of this progress note, and it is not deemed complete until electronically signed by the appointment provider. Sign off status: Pending * Provider: Elpidio Perez MD Date: 0 12/28/2023 Generated for Sahil dodd/Carmen/Sriitting on: 04/23/2024 11:47 PM EST
--- OUTSIDE RECORDS SUMMARY | 2023-12-31 05:45 | XMS_ITS ---
Author Organization Alexandro Perez MD Address [address] [place], [place] [id number] Care Team Providers Care Respiratory Therapy Manager Name Role Phone Alexandro Perez Primary Care Provider Allergies No Known Allergies REASON FOR VISIT 2 month, c/o bilateral ankle edema, Accompanied by Medications Medication SIG (Take, Route, Frequency, Duration) Notes Start Date End Date Status Zocor 20 MG TAKE 1 TABLET BY ALLISON TH EVERY DAY for 90 Not-Taking dilTIAZem HCl ER 60 MG 1 capsule Orally Once a day for 30 day(s) 12/31/2023 Active Chantix Starting Month Hilario 0.5 MG X 11 & 1 MG X 42 DIRECTED PER PACKAGE TWICE A DAY for 23 Not-Taking Chantix Starting Month Hilario 0.5 MG X 11 & 1 MG X 42 as directed Orally twice a day for 30 days 12/01/2016 Not-Taki ng Atorvastatin Calcium 20 MG TAKE 1 TABLET BY MOUTH EVERY DAY for 90 Active LORazepam 0.5 MG 1 tablet at bedtime as needed Orally Once a day for 10 days 09/13/2023 Active Ativan 0.5 MG TAKE 1 TABLET BY ALLISON TH AT BEDTIME NEEDED Orally Once a day for 20 Active Valsartan-hydroCHLOROthia zide 160-12.5 MG 1 tablet Orally Once a day for 30 day(s) 08/24/2019 Not-Taking Ibuprofen 800 MG TAKE 1 TABLET BY ALLISON TH THREE TIMES A DAY WITH FOOD OR MILK NEEDED Orally every 8 hrs for 90 days Active Vitamin D (Cholecalciferol) 1000 UNIT 1 tablet Orally Once a day for 30 day(s) 02/11/2015 Active Valsartan 320 MG 1 tablet Orally Once a day 10/28/2023 Active Immunizations Vaccine Route Administration Date Status Comme nts Influenza High Dose IM Intramuscular 12/31/2023 Administer ed Problems Problem Type SNOMED Code ICD Code Onset Dates Problem Status W/U Status Risk Notes Problem [id number] Hyperparathyroid ism (E21.3) Active confirmed Vital Signs Blood pressure systolic 168 mm Hg 12/31/19 Blood pressure diastolic 70 mm Hg 024 Height 66 in 12/31/2023 Weight 172 lbs 12/31/2023 BMI 27.76 kg/m2 12/31/2023 weight is down 1 pounds counts include 234 beds at the [facility] 10-28-23 Encounters Encounter Location Date Provider Diagnosis Alexandro Perez MD [address] [place] [address] [place] [phone] 12/31/2023 Alexandro Perez Hypercalcemia E83.52 ; Bilateral leg edema R60.0 ; Essential hypertension I10 ; Encounter for immunization Z23 and Hyperparathyroidism E21.3 Assessments Encounter Date Diagnosis (ICD Code) Assessment Notes Treatment Notes Treatment Clinical Notes Section Notes 12/31/2023 Hypercalcemia (ICD-1 0 - E83.52) 12/31/2023 Bilateral leg edema (ICD-10 - R60.0) this secondary to amlodiopine, patient verbalized understanding of medication instructions and directions for use 12/31/2023 Essential hypertensi on (ICD-10 - I10) stable, will continue current regiment 12/31/2023 Encounter for immunization (ICD-10 - Z23) flu vaccine administered 12/31/2023 Hyperparathyroidism (ICD-10 - E21.3) is going to be seeing dr ames next month Plan Of Treatment Medication Medication Name Sig Start Date Stop Date Notes dilTIAZem HCl ER 60 MG 1 capsule Orally Once a day for 30 day(s) 12/31/2023 amLODIPine Besylate 5 MG TAKE 1 TABLET B Y MOUTH EVERY DAY FOR 30 DAYS Valsartan 320 MG 1 tablet Orally Once a day 10/28/2023 Treatment Notes Assessment Notes Bilateral leg edema this secondary to am lodiopine, patient verbalized understanding of medication instructions and directions for use Essential hypertension stable, will cont inue current regiment Encounter for immunization flu vaccine a dministered Hyperparathyroidism is going to be charlie ames next month Next Appt Details Follow Up: 4 Weeks, Reason: Provider Name:Alexandro Brink ier, 02/22/2025 08:30:00 AM, [address] [place] [address], [address], [phone], Provider Name:Alexandro Brink ier, 03/05/2025 11:15:00 AM, [address] [place] [address], [address], [phone], Provider Name:Alexandro Brink ier, 08/30/2025 07:45:00 AM, [address] [place] [address], [address], [phone], Provider Name:Alexandro Brink ier, 09/06/2025 11:00:00 AM, [address] [place] [address], [address], [phone], Progress Notes * Jeanine BACON TDOB: 2 (73 yo F)Acc No.[id number]:12/31/2023 Progress Notes Patient: Jeanine Barton Provider: Elpidio Perez MD :1950 A ge:73 Y S ex:Female Date:12/31/2023 Address:[address] [place] [id number] Subjective: * Chief Complaints: * 2 monthC/o bilateral ankle edemaAccompanied by * HPI: S ymptom(s): patient is a 73 yo female here for 2month follow up visit, ankles swollen since starting amlodipine. * ROS: G eneral/Constitutional: Denies C hills. D enies F atigue. D enies F ever. D enies H eadache. E NT: Patient denies d ecreased sense of smell , any loss of taste , sore throat. D enies S ore throat. R espiratory: Denies C ough. D enies S hortness of breath at rest. D enies S hortness of breath with exertion. C ardiovascular: Denies C hest pain at rest. D enies C hest pain with exertion. D enies D izziness. D enies P alpitations. D enies S hortness of breath. G astrointestinal: Denies D iarrhea. D enies N ausea. M usculoskeletal: Patient denies m uscle aches. P eripheral Vascular: Patient denies r ed and blue toes. * Medical History: * Surgical History: * Hospitalization/Major Diagno stic Procedure: * Medications: T akingVitamin D (Cholecalciferol) 1000 UNIT Tablet 1 tablet Orally Once a dayAtivan 0.5 MG Tablet TAKE 1 TABLET BY MOUTH AT BEDTIME NEEDED Orally Once a dayLORazepam 0.5 MG Tablet 1 tablet at bedtime as needed Orally Once a dayAtorvastatin Calcium 20 MG Tablet TAKE 1 TABLET BY MOUTH EVERY DAY Valsartan 320 MG Tablet 1 tablet Orally Once a dayIbuprofen 800 MG Tablet TAKE 1 TABLET BY MOUTH THREE TIMES A DAY WITH FOOD OR MILK NEEDED Orally every 8 hrsamLODIPine Besylate 5 MG Tablet TAKE 1 TABLET BY MOUTH EVERY DAY FOR 30 DAYS Taking Vitamin D (Cholecalciferol) 1000 UNIT Tablet 1 tablet Orally Once a dayTaking Ativan 0.5 MG Tablet TAKE 1 TABLET BY MOUTH AT BEDTIME NEEDED Orally Once a dayTaking LORazepam 0.5 MG Tablet 1 tablet at bedtime as needed Orally Once a dayTaking Atorvastatin Calcium 20 MG Tablet TAKE 1 TABLET BY MOUTH EVERY DAY Taking Valsartan 320 MG Tablet 1 tablet Orally Once a dayTaking Ibuprofen 800 MG Tablet TAKE 1 TABLET BY MOUTH THREE TIMES A DAY WITH FOOD OR MILK NEEDED Orally every 8 hrsTaking amLODIPine Besylate 5 MG Tablet TAKE 1 TABLET BY MOUTH EVERY DAY FOR 30 DAYS Not-Taking/PRNValsartan-hydroCHLOROthiazide 160-12.5 MG Tablet 1 tablet Orally Once a dayChantix Starting Month Hilario 0.5 MG X 11 & 1 MG X 42 Tablet as directed Orally twice a dayChantix Starting Month Hilario 0.5 MG X 11 & 1 MG X 42 Tablet DIRECTED PER PACKAGE TWICE A DAY Zocor 20 MG Tablet TAKE 1 TABLET BY MOUTH EVERY DAY Medication List reviewed and reconciled with the patientNot-Taking/PRN Valsartan-hydroCHLOROthiazide 160-12.5 MG Tablet 1 tablet Orally Once a dayNot-Taking/PRN Chantix Starting Month Hilario 0.5 MG X 11 & 1 MG X 42 Tablet as directed Orally twice a dayNot-Taking/PRN Chantix Starting Month Hilario 0.5 MG X 11 & 1 MG X 42 Tablet DIRECTED PER PACKAGE TWICE A DAY Not-Taking/PRN Zocor 20 MG Tablet TAKE 1 TABLET BY MOUTH EVERY DAY Medication List reviewed and reconciled with the patient * Allergies: N .K.D.A.yes[Allergies Verified] Objective: * Vitals: H t: 66, Wt:172, BMI:27.76, BP:168/70, Repeat BP:130/82 weight is down 1 pounds since 10-28-23. * Examination: G eneral Examination: GENERAL APPEARANCE: alert, well hydrated, in no distress , , female. HEART: no murmurs, rubs, gallops, regular rate and rhythm. LUNGS: no wheezes, rales, rhonchi, good air movement, clear to auscultation bilaterally. EXTREMITIES: 2+ pitting edema lower extremities. ? Assessment: * Assessment: 1. B ilateral leg edema - R60.0 (Primary) 2 . H ypercalcemia - E83.52 3 . E ssential hypertension - I10 4 . E ncounter for immunization - Z23 5 . H yperparathyroidism - E21.3 Plan: * Treatment: 2. E ssential hypertension Continue Valsartan Tablet, 320 MG, 1 tablet, Orally, Once a day. Notes: stable, will continue current regiment 3. E ncounter for immunization Notes: flu vaccine administered 4. H yperparathyroidism Notes: is going to be seeing dr ames next month * Immunizations: Influenza High Dose : 0.5 mL (Dose No:1) (Route: Intramuscular) given by Alanna Anderson on Left Deltoid * Procedure Codes: 9 0662 FLU VACC PRSV FREE INC [id number] ADMN FLU VAC NO FEE SCHED SAME DAY * Preventive Medicine: Immunizations: I nfluenza H ave you had a flu shot since the most recent December 04? Y es. * Follow Up: 4 Weeks * * Sign off status: Completed true * Provider: Elpidio Perez MD Date: 0 12/31/2023 Generated for Sahil dodd/Carmen/eTransmitting on: 04/23/2024 11:46 PM EST History and Physical Notes * HPI (History of Present Illness) Category Sub-Category Detail Notes Category Not es Symptom(s) patient is a 73 yo female here for 2month follow up visit, ankles swollen since starting amlodipine Examination Category Sub-Category Detail Notes Category Not es General Examination GENERAL APPEARANCE: alert, w ell hydrated, in no distress , , female HEART: no murmurs, rubs, ga llops, regular rate and rhythm LUNGS: no wheezes, rales, r honchi, good air movement, clear to auscultation bilaterally EXTREMITIES: 2+ pitting edema low er extremities
--- OUTSIDE RECORDS SUMMARY | 2024-01-28 06:30 | XMS_ITS ---
Author Organization Alexandro Perez MD Address [address] [place], [place] [id number] Care Team Providers Care Loft Worker Head Name Role Phone Alexandro Perez Primary Care Provider [phone] Allergies No Known Allergies REASON FOR VISIT 4 WEEK F/U, still had not jose rafael her mammogram from September 2023, going to PT unsteady on her feet Medications Medication SIG (Take, Route, Frequency, Duration) Notes Start Date End Date Status Chantix Starting Month Hilario 0.5 MG X 11 & 1 MG X 42 as directed Orally twice a day for 30 days 12/01/2016 Not-Taki ng Chantix Starting Month Hilario 0.5 MG X 11 & 1 MG X 42 DIRECTED PER PACKAGE TWICE A DAY for 23 Not-Taking Valsartan 320 MG TAKE 1 TABLET BY ALLISON TH EVERY DAY FOR 30 DAYS for 90 Active Valsartan-hydroCHLOROthia zide 160-12.5 MG 1 tablet Orally Once a day for 30 day(s) 08/24/2019 Not-Taking Zocor 20 MG TAKE 1 TABLET BY ALLISON TH EVERY DAY for 90 Not-Taking Vitamin D (Cholecalciferol) 1000 UNIT 1 tablet Orally Once a day for 30 day(s) 02/11/2015 Active LORazepam 0.5 MG 1 tablet at bedtime as needed Orally Once a day for 10 days 09/13/2023 Active Ibuprofen 800 MG TAKE 1 TABLET BY ALLISON TH THREE TIMES A DAY WITH FOOD OR MILK NEEDED Orally every 8 hrs for 90 days Active dilTIAZem HCl ER 60 MG 1 capsule Orally Once a day for 30 day(s) 12/31/2023 Active Atorvastatin Calcium 20 MG TAKE 1 TABLET BY MOUTH EVERY DAY for 90 Active Problems Problem Type SNOMED Code ICD Code Onset Dates Problem Status W/U Status Risk Notes Problem [id number] Poor balance (R26.89) Active confirmed Vital Signs Blood pressure systolic 158 mm Hg 01/28/20 24 Blood pressure diastolic 90 mm Hg 024 Height 66 in 01/28/2024 Weight 172 lbs 01/28/2024 BMI 27.76 kg/m2 01/28/2024 Encounters Encounter Location Date Provider Diagnosis Alexandro Perez MD [address] [place] [address] [place] [phone] 01/28/2024 Aleaxndro Perez Bilateral leg edema R60.0 ; Essential hypertension I10 and Poor balance R26.89 Assessments Encounter Date Diagnosis (ICD Code) Assessment Notes Treatment Notes Treatment Clinical Notes Section Notes 01/28/2024 Bilateral leg edema (ICD-10 - R60.0) doing much better off the amlodipine. will leave her on the present meds/ 01/28/2024 Essential hypertension (ICD-10 - I10) well controlled on the present meds 01/28/2024 Poor balance (ICD-10 - R26.89) is goint to physical therapy and hopefully will improve Plan Of Treatment Treatment Notes Assessment Notes Bilateral leg edema doing much better of f the amlodipine. will leave her on the present meds/ Essential hypertension well controlled o n the present meds Poor balance is goint to physical therapy and hopefully will improve Next Appt Details Follow Up: 6 Months, Reason: comp Provider Name:Alexandro reyes, 02/22/2025 08:30:00 AM, [address] [place] [address], [address], [phone], Provider Name:Alexandro reyes, 03/05/2025 11:15:00 AM, [address] [place] [address], [address], [phone], Provider Name:Alexandro Brink ier, 08/30/2025 07:45:00 AM, [address], [address], [place], [phone], Provider Name:Alexandro Brink ier, 09/06/2025 11:00:00 AM, [address], [address], [place], [phone], Progress Notes * Jeanine BACON TDOB: (73 yo F)Acc No.[id number]:01/28/2024 Progress Notes Patient: Jeanine Barton Provider: Elpidio Perez MD :1950 A ge:73 Y S ex:Female Date:01/28/2024 Address:[address] [place], [place] [id number] Subjective: * Chief Complaints: * 4 WEEK F/Linane had not jose rafael her mammogram from September 2023, going to PT unsteady on her feet * HPI: S ymptom(s): patient is a 73 yo female here for 4 week follow up visit, going to physical therapy. afraid to get mammogram because of her balance.is sore from physical therapy. * ROS: G eneral/Constitutional: Denies C hills. [...] UNIT Tablet 1 tablet Orally Once a dayLORazepam 0.5 MG Tablet 1 tablet at bedtime as needed Orally Once a dayAtorvastatin Calcium 20 MG Tablet TAKE 1 TABLET BY MOUTH EVERY DAY Ibuprofen 800 MG Tablet TAKE 1 TABLET BY MOUTH THREE TIMES A DAY WITH FOOD OR MILK NEEDED Orally every 8 hrsdilTIAZem HCl ER 60 MG Capsule Extended Release 12 Hour 1 capsule Orally Once a dayValsartan 320 MG Tablet TAKE 1 TABLET BY MOUTH EVERY DAY FOR 30 DAYS Taking Vitamin D (Cholecalciferol) 1000 UNIT Tablet 1 tablet Orally Once a dayTaking LORazepam 0.5 MG Tablet 1 tablet at bedtime as needed Orally Once a dayTaking Atorvastatin Calcium 20 MG Tablet TAKE 1 TABLET BY MOUTH EVERY DAY Taking Ibuprofen 800 MG Tablet TAKE 1 TABLET BY MOUTH THREE TIMES A DAY WITH FOOD OR MILK NEEDED Orally every 8 hrsTaking dilTIAZem HCl ER 60 MG Capsule Extended Release 12 Hour 1 capsule Orally Once a dayTaking Valsartan 320 MG Tablet TAKE 1 TABLET BY MOUTH [...] * Vitals: H t: 66, Wt:172, BMI:27.76, BP:158/90, Repeat BP:148/86. * Examination: G eneral Examination: GENERAL APPEARANCE: a lert, well hydrated, in no distress.? HEAD: n ormocephalic. SKIN: g ood turgor. HEART: r egular rate and rhythm , no murmurs, rubs, gallops. LUNGS: n o wheezes, rales, rhonchi , good air movement , clear to auscultation bilaterally. EXTREMITIES: t race edema. Assessment: * Assessment: 1. B ilateral leg edema - R60.0 (Primary) 2 . E ssential hypertension - I10 3 .?Poor balance - R26.89 Plan: * Treatment: 2. E ssential hypertension Notes: well controlled on the present meds 3. P oor balance Notes: is goint to physical therapy and hopefully will improve * Procedure Codes: * Follow Up: 6 Months (Reason: comp) * * Sign off status: Completed true * Provider: Elpidio Perez MD Date: Generated for Sahil dodd/Carmen/Iselaransmitting on: 04/23/2024 11:46 PM EST History and Physical Notes * HPI (History of Present Illness) Category Sub-Category Detail Notes Category Not es Symptom(s) patient is a 73 yo female here for 4 week follow up visit, going to physical therapy. afraid to get mammogram because of her balance.is sore from physical therapy Examination Category Sub-Category Detail Notes Category Not es General Examination GENERAL APPEARANCE: alert, w ell hydrated, in no distress HEAD: normocephalic HEART: regular rate and rhy thm , no murmurs, rubs, gallops LUNGS: no wheezes, rales, r honchi , good air movement , clear to auscultation bilaterally SKIN: good turgor EXTREMITIES: trace edema
--- OUTSIDE RECORDS SUMMARY | 2024-02-25 06:04 | XMS_ITS ---
Author Organization Alexandro Perez MD Address [address] [facility] [address] [place] [phone] Care Team Providers Care Rn Labor And Delivery Name Role Phone Alexandro Perez Primary Care Provider [phone] REASON FOR VISIT lab work for Wednesday02-28-2024 Encounters Encounter Location Date Provider Diagnosis Alexandro Perez MD [address] [facility] [address] [place] [phone] 02/25/2024 Alexandro Perez Plan Of Treatment Next Appt Details Provider Name:Alexandro reyes, 02/22/2025 08:30:00 AM, [address] [place] [address], [address], [phone], Provider Name:Alexandro boycer, 03/05/2025 11:15:00 AM, [address] [place] [address], [address], [phone], Provider Name:Alexandro reyes, 08/30/2025 07:45:00 AM, [address] [place] [address], [address], [phone], Provider Name:Alexandro reyes, 09/06/2025 11:00:00 AM, [address] [place] [address], [place], [id number], Progress Notes * Jeanine BACON TDOB: 2 (73 yo F)Acc No.[id number]:02/25/2024 Patient: Jeanine Barton :1950 A ge:73 Y S ex:Female Address:[address] [place] [address] [place] [id number] * true * Date: Generated for Sahil dodd/Carmen/eTransmitting on: 04/23/2024 11:46 PM EST
--- OUTSIDE RECORDS SUMMARY | 2024-04-07 05:33 | XMS_ITS ---
Author Organization Alexandro Perez MD Address [address] [facility] [address] [place] [phone] Care Team Providers Care Medical Examiner Name Role Phone Alexandro Perez Primary Care Provider Encounters Encounter Location Date Provider Diagnosis Alexandro Perez MD [address] [facility] [address] [place] [phone] 04/07/2024 Alexandro Perez Plan Of Treatment Next Appt Details Provider Name:Alexandro reyes, 02/22/2025 08:30:00 AM, [address] [place] [address], [address], [phone], Provider Name:Alexandro reyes, 03/05/2025 11:15:00 AM, [address] [place] [address], [address], [phone], Provider Name:Alexandro reyes, 08/30/2025 07:45:00 AM, [address] [place] [address], [address], [phone], Provider Name:Alexandro reyes, 09/06/2025 11:00:00 AM, [address] [place] [address], [address], [phone], Progress Notes * Jeanine BACON TDOB: 2 (73 yo F)Acc No.[id number]:04/07/2024 Patient: Jeanine Barton :1950 A ge:73 Y S ex:Female Address:[address] [place] [phone] * true * Date: Generated for Sahil dodd/Carmen/Genarosmitting on: 04/23/2024 11:45 PM EST
--- OUTSIDE RECORDS SUMMARY | 2024-04-17 03:15 | XMS_ITS ---
Author Organization Alexandro Perez MD Address [address] [place] [phone] Care Team Providers Care Building Code Inspector Name Role Phone Alexandro Perez Primary Care Provider [phone] REASON FOR VISIT Calcium Encounters Encounter Location Date Provider Diagnosis Alexandro Perez MD [facility] [address] [place] [phone] 04/17/2024 Alexandro Perez Hypercalcemia E83.52 Assessments Encounter Date Diagnosis (ICD Code) Assessment Notes Treatment Notes Treatment Clinical Notes Section Notes 04/17/2024 Hypercalcemia (ICD-10 - E83.52) Plan Of Treatment Next Appt Details Provider Name:Alexandro reyes, 02/22/2025 08:30:00 AM, [address] [place] [address], [address], [phone], Provider Name:Alexandro reyes, 03/05/2025 11:15:00 AM, [address] [place] [address], [address], [phone], Provider Name:Alexandro reyes, 08/30/2025 07:45:00 AM, [address] [place] [address], [address], [phone], Provider Name:Alexandro Justin Brink ier, 09/06/2025 11:00:00 AM, [address] [facility] [address], [address], [place], [place], [phone], Progress Notes * Jeanine BACON TDOB: 2 (74 yo F)Acc No.[id number]:04/17/2024 Progress Note Patient: Jeanine LAMA Provider: Elpidio Perez MD :1950 A ge:73 Y S ex:Female Date:04/17/2024 Address:[address] [place], [place] [phone] Subjective: * Chief Complaints: * 1 . Calcium. * Medical History: Objective: * Vitals: Assessment: * Assessment: 1. H ypercalcemia - E83.52 Plan: * Treatment: * * The named appointment provid er may or may not be the originator of this progress note, and it is not deemed complete until electronically signed by the appointment provider. Sign off status: Pending * Provider: Elpidio Perez MD Date: 0 04/17/2024 Generated for Sahil dodd/Carmen/Sriitting on: 04/23/2024 11:46 PM EST
--- OUTSIDE RECORDS SUMMARY | 2024-05-09 08:39 | XMS_ITS ---
Author Organization Alexandro Perez MD Address [address] [place] [phone] Care Team Providers Care Low Raw Sugar Cutter Name Role Phone Alexandro Perez Primary Care Provider [phone] REASON FOR VISIT New Refill Request Medications Medication SIG (Take, Route, Fr equency, Duration) Notes Start Date End Date Status LORazepam 0.5 MG 1 tablet at bedtime as needed Orally Once a day for 10 days 05/09/2024 Ac tive Encounters Encounter Location Date Provider Diagnosis Alexandro Perez MD 10 [facility] [address] [place] [phone] 05/09/2024 Alexandro Perez Plan Of Treatment Medication Medication Name Sig Start Date Stop Date Notes LORazepam 0.5 MG 1 tablet at bedtime as needed Orally Once a day for 10 days 05/09/2024 Next Appt Details Provider Name:Alexandro reyes, 02/22/2025 08:30:00 AM, [address] [place] [address], [address] [place] [address], [phone], Provider Name:Alxeandro reyes, 03/05/2025 11:15:00 AM, [address] [place] [address], [address], [phone], Provider Name:Alexandro Brink ier, 08/30/2025 07:45:00 AM, [address], [address], [place], [place], [phone], Provider Name:Alexandro Brink ier, 09/06/2025 11:00:00 AM, [address], [address], [place], [place], [phone], Progress Notes * Jeanine BACON TDOB: 2 (73 yo F)Acc No.[id number]:05/09/2024 Patient: Jeanine LAMA :1950 A ge:73 Y S ex:Female Address:[address] [place] [phone] * Refills Refill LORazepam Tablet, 0.5 MG, Orally, 10 Tablet, 1 tablet at bedtime as needed, Once a day, 10 days, Refills=0 * true * Date: Generated for Sahil dodd/Carmen/eTransmitting on: 04/23/2024 11:46 PM EST
--- OUTSIDE RECORDS SUMMARY | 2024-07-11 02:15 | XMS_ITS ---
Author Organization Alexandro Perez MD Address [address] [place], [place] [phone] Care Team Providers Care Terminal Operations Manager Name Role Phone Alexandro Perez Primary Care Provider [phone] Results Component Value Reference Range Notes Complete Blood Count Auto Di ff Reviewed date:07/11/2024 12:34:42 PM Interpretation: Performing Lab:[facility], [address] [place] [phone] Notes/Report: White Blood Count 12.1 4.8-10.8 X10*3/uL [...] NRBC Abs Auto 0.000 0.0-0.012 X10*3/uL Comprehensive [place]. Panel Fa st Reviewed date:07/11/2024 12:34:20 PM Interpretation: Performing Lab:[facility], [address] [place] [phone] Notes/Report: Sodium 139 135-145 mmol/L Potassium 3.8 [...] Panel Reviewed date:07/11/2024 12:15:44 PM Interpretation: Performing Lab:[facility], [address] [place] [phone] Notes/Report: Triglycerides 86 <150 mg/dL Desirable Triglyceride: [...] Total Reviewed date:07/11/2024 12:15:51 PM Interpretation: Performing Lab:[facility], [address] [place] [phone] Notes/Report: Vitamin D 25-OH Total 64.6 >30 [...] A1c Reviewed date:07/11/2024 12:15:14 PM Interpretation: Performing Lab:[facility], [address] [facility], [place] [phone] Notes/Report: Hemoglobin A1c % 5.3 <6.0 % [...] average glucose, using the formula of the O9I-Swpnmru Average Glucose study (ADAG), Diabetes Care, Vol.31,#8, Nov. 2007 REASON FOR VISIT yearly fasting labs with lipids Encounters Encounter Location Date Provider Diagnosis Alexandro Perez MD [address] [place] [address] [place] [phone] 07/11/2024 Alexandro Perez Pure hypercholestero lemia E78.00 [...] 07/11/2024 Next Appt Details Provider Name:Alexandro reyes, 02/22/2025 08:30:00 AM, [address] [place] [address], [address] [place] [address], [phone], Provider Name:Alexandro reyes, 03/05/2025 11:15:00 AM, [address] [place] [address], [address], [phone], Provider Name:Alexandro reyes, 08/30/2025 07:45:00 AM, [address] [place] [address], [address], [phone], Provider Name:Alexandro Brink ier, 09/06/2025 11:00:00 AM, [address], [address], [place], [phone], Progress Notes * Jeanine BACON TDOB: 2 (74 yo F)Acc No.[id number]:07/11/2024 Progress Note Patient: Jeanine LAMA Provider: Elpidio Perez MD :1950 A ge:73 Y S ex:Female Date:07/11/2024 Address:[address] [place] [address] CH[place] PAYTON [id number] Subjective: * Chief Complaints: * 1 . [...] - 07/11/2024 07:15 AM) L AB: Comprehensive [place]. Panel Fast (Collection Date & Time - [...] - 07/11/2024 07:15 AM) L AB: Comprehensive [place]. Panel Fast (Collection Date & Time - [...] - 07/11/2024 07:15 AM) L AB: Comprehensive [place]. Panel Fast (Collection Date & Time - [...] MD Date: 0 07/11/2024 Generated for Sahil dodd/Carmen/Erna on: 1 04/23/2024 11:46 PM EST
--- OUTSIDE RECORDS SUMMARY | 2024-09-01 05:00 | XMS_ITS ---
Author Organization Alexandro Perez MD Address [address] [place], [place] [phone] Care Team Providers Care Patient Registration Specialist Name Role Phone Alexandro Perez Primary Care [...] kg/m2 09/01/2024 weight is down 11 pounds [facility] 10-25-24 Encounters Encounter Location Date Provider Diagnosis Alexandro Perez MD [address] [place] [address] [place] [phone] 09/01/2024 Alexandro Perez Disorder of parathyr oid [...] Next Appt Details Provider Name:Alexandro Brink ier, 02/22/2025 08:30:00 AM, [address] [place] [address], [address] [place] [address], [phone], Provider Name:Alexandro Brink ier, 03/05/2025 11:15:00 AM, [address] [place] [address], [address], [phone], Provider Name:Alexandro Brink ier, 08/30/2025 07:45:00 AM, [address] [place] [address], [address] [place] [address], [phone], Provider Name:Alexandro Brink ier, 09/06/2025 11:00:00 AM, [address] [place] [address], [address] [place] [address], [phone], Progress Notes * Jeanine BACON TDOB: 2 (74 yo F)Acc No.[id number]:09/01/2024 Patient: Jeanine LAMA Provider: Elpidio Perez MD :1950 A ge:74 Y S ex:Female Date:09/01/2024 Address:[address] [place], [place] [id number] Subjective: * Chief Complaints: * 1 . [...] - ng/mL L ab:Hemoglobin A1c (Order Date - 07/11/2024) (Collection Date & [...] Auto 0.000 0.0-0.012 - X10*3/uL L ab:Comprehensive [place]. Panel Fast (Order Date - 07/11/2024) (Collection [...] masses palpable. RECTAL EXAM: d one by contract serviceman. FEMALE GENITOURINARY: d one by contract serviceman. EXTREMITIES: n o clubbing, cyanosis, or edema. [...] BMI provided?Yes, A joão Normal BMI Follow-up G iving encouragement to exercise. * * The named appointment provid er may or may not be the originator of this progress note, and it is not deemed complete until electronically signed by the appointment provider. Sign off status: Pending * Provider: Elpidio Perez MD Date: 0 09/01/2024 Generated for Sahil dodd/Carmen/Sriitting on: 04/23/2024 11:47 PM EST History and Physical Notes * [...] edema BREASTS: declined RECTAL EXAM: done by contract serviceman FEMALE GENITOURINARY: done by contract serviceman ORAL CAVITY: mucosa moist
--- OUTSIDE RECORDS SUMMARY | 2024-12-18 10:27 | XMS_ITS ---
Author Organization Alexandro Perez MD Address [address] [facility] [address] [place] [phone] Care Team Providers Care Public Address Systems Mechanic Name Role Phone Alexandro Perez Primary Care Provider REASON FOR VISIT referral Encounters Encounter Location Date Provider Diagnosis Alexandro Perez MD [address] [facility] [address] [place] [phone] 12/18/2024 Alexandro Perez Plan Of Treatment Next Appt Details Provider Name:Alexandro boycer, 02/22/2025 08:30:00 AM, [address] [place] [address], [address], [phone], Provider Name:Alexandro boycer, 03/05/2025 11:15:00 AM, [address] [place] [address], [address], [phone], Provider Name:Alexandro reyes, 08/30/2025 07:45:00 AM, [address] [place] [address], [phone], Provider Name:Alexandro reyes, 09/06/2025 11:00:00 AM, [address] [place] [address], [phone], Progress Notes * Jeanine BACON TDOB: 2 (74 yo F)Acc No.[id number]:12/18/2024 Patient: Jeanine LAMA :1950 A ge:74 Y S ex:Female Address:[address] [place] [address] [place] [phone] * true * Date: Generated for Sahil dodd/Carmen/Genarosmitting on: 04/23/2024 11:46 PM EST
--- OUTSIDE RECORDS SUMMARY | 2025-02-21 23:47 | XMS_ITS | Patient Health Record ---
Author Organization [facility] [place] Address [address] [place] [address] Care Team Providers Care Clinical Radiologist Name Role Phone Alexandro Perez MD Primary Care Provider Ilia Schuster [facility] [phone] Reason For Referral No Information Medications Medication [...] Medicare National Govt Svcs Inc [address] [facility] [place] [address] [id number] Jeanine Epps Self - patient is the insured 7 [facility] [address] [place] [address] [phone] [id number] Jeanine Epps Self - patient is the insured Medical (General) History Medical History History ICD Code Arthritis Cholesterol High blood pressure Chicken pox Joint implants/screws Surgical History Surgery Date(Month/Year) right hip replacement 02/08/2017
--- OUTSIDE RECORDS SUMMARY | 2025-02-21 23:48 | XMS_ITS | Patient Health Record ---
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 Name Role Phone Alexandro Perez Primary Care Provider Allergies No Known Allergies Results Component Value Reference Range Notes Complete Blood Count Auto Di ff Reviewed date:07/11/2024 12:34:42 PM Interpretation: Performing Lab:[facility], [address] [place] [phone] Notes/Report: White Blood Count 12.1 4.8-10.8 X10*3/uL [...] 0.0-0.2 /100WBC Neutrophils Absolute Auto 9.1 2.0-8.3 x10*3/uL Imm Gran Abs Auto 0.09 0.00-0.03 X10*3/uL Lymphocytes Absolute Auto 1.9 1.2-4.9 X10*3/uL Monocytes Absolute Auto 0.9 0.1-1.2 X10*3/uL Eosinophils Absolute Auto 0.0 0.0-0.4 X10*3/uL Basophils Absolute Auto 0.0 0.0-0.2 X10*3/uL NRBC Abs Auto 0.000 0.0-0.012 X10*3/uL Comprehensive [place]. Panel Fa st Reviewed date:07/11/2024 12:34:20 PM Interpretation: Performing Lab:[facility], [address] [place] [phone] Notes/Report: Sodium 139 135-145 mmol/L Potassium 3.8 [...] Panel Reviewed date:07/11/2024 12:15:44 PM Interpretation: Performing Lab:[address] [phone] Notes/Report: Triglycerides 86 <150 mg/dL Desirable Triglyceride: [...] Total Reviewed date:07/11/2024 12:15:51 PM Interpretation: Performing Lab:[address] [address] Notes/Report: Vitamin D 25-OH Total 64.6 >30 [...] A1c Reviewed date:07/11/2024 12:15:14 PM Interpretation: Performing Lab:[place] [address] [facility] [place] [address] Notes/Report: Hemoglobin A1c % 5.3 <6.0 % [...] average glucose, using the formula of the I3D-Oanqupy Average Glucose study (ADAG), Diabetes Care, Vol.31,#8, Nov. 2007 MM tomosynthesis screening B I Reviewed date:11/03/2024 12:33:30 PM Interpretation: Performing Lab: Notes/Report: [address] [place] [address] Mammography Report Signed Patient: Jeanine Epps MR#: [id number] 67 : 1950 Acct:[id number] Age/Sex: 74 / F ADM Date: 10/24/24 Loc: HO.MAMMO Attending Dr: Garfield Quiles MD Ordering Physician: Garfield Quiles MD Results: 1Negative Date of Service: 10/24/24 Follow Up: 1 Year From [facility] ina Mammogram Procedure(s): MM tomosynthesis screening BI Accession Number(s): [id number] cc: Alexandro Perez MD; Garfield Quiles MD EXAMINATION: MM SCREENING DIGITAL BREAST TOMOSYNTHESIS, BILATERAL CLINICAL INFORMATION: Screening. Asymptomatic. COMPARISON: Mammography: Comparison is made with available priors TECHNIQUE: Digital breast mammography with tomosynthesis is performed in both the craniocaudal and mediolateral oblique views along with computer-aided detection (CAD). FINDINGS: There are scattered areas of fibroglandular density (ACR BI-RADS breast composition Category b). There are no significant masses, abnormal calcifications, or other abnormalities. MM/MM tomosynthesis screening BI IMPRESSION: No mammographic evidence of malignancy. ASSESSMENT: BI-RADS BI-RADS 1 - Negative RECOMMENDATION: Routine annual mammography screening. 1 year F/U This examination should not preclude the clinical evaluation of a suspicious palpable abnormality. This patient's information was entered into a reminder system with a target due date for their next mammogram. Electronically signed by: Desirae Cottrell DO 11/03/2024 09:23 AM EDT RP Dictated By: Desirae Cottrell DO Signed By: <Electronically signed by Desirae Cottrell DO in OV> 11/03/24 0923 DD/ 1105 TD/TT: 10/24/24 1130 Yard Laborer: [place] [facility]'s [address] [place], [place] [address] Mammography Report Signed Patient: Eugenia Epps MR#: [id number] 67 : 1950 Acct:[id number] Age/Sex: 74 / F ADM Date: 10/24/24 Loc: HO.MAMMO Attending Dr: Garfield Quiles MD Ordering Physician: Garfield Quiles MD Results: 1Negative Date of Service: 10/24/24 Follow Up: 1 Year From Orig inal Mammogram Procedure(s): MM tomosynthesis screening BI Accession Number(s): [id number] cc: Alexandro Perez MD; Garfield Quiles MD EXAMINATION: MM SCREENING DIGITAL BREAST TOMOSYNTHESIS, BILATERAL CLINICAL INFORMATION: Screening. Asymptomatic. COMPARISON: Mammography: Comparison is made with available priors TECHNIQUE: Digital breast mammography with tomosynthesis is performed in both the craniocaudal and mediolateral oblique views along with computer-aided detection (CAD). FINDINGS: There are scattered areas of fibroglandular density (ACR BI-RADS breast composition Category b). There are no significant masses, abnormal calcifications, or other abnormalities. MM/MM tomosynthesis screening BI IMPRESSION: No mammographic evidence of malignancy. ASSESSMENT: BI-RADS BI-RADS 1 - Negative RECOMMENDATION: Routine annual mammography screening. 1 year F/U This examination should not preclude the clinical evaluation of a suspicious palpable abnormality. This patient's information was entered into a reminder system with a target due date for their next mammogram. Electronically jason d by: Desirae Cottrell DO 11/03/2024 09:23 AM EDT Dictated By: Desirae Cottrell DO Signed By: <Electronically signed by Desirae Cottrell DO in OV> 11/03/24 0923 DD/ 1105 TD/TT: 10/24/24 1130 Yard Laborer: XR DEXA axial skeleton Reviewed date:10/24/2024 02:51:48 PM Interpretation: Performing Lab: Notes/Report: [facility] [address] [place] [address] Mammography Report Signed Patient: Jeanine Epps MR#: [id number] 67 : 1950 Acct:[id number] Age/Sex: 74 / F ADM Date: 10/24/24 Loc: HOOdalisMAMMO Attending Dr: Garfield Quiles MD Ordering Physician: Garfield Quiles MD Results: Date of Service: 10/24/24 Follow Up: Procedure(s): XR DEXA axial skeleton Accession Number(s): [id number] cc: Alexandro Perez MD; Garfield Quiles MD EXAMINATION: DXA BONE DENSITY AXIAL HISTORY: M85.80 - Other specified disorders of bone density and structure, unspecified... TECHNIQUE: Memorandom Dual energy absorptiometry (DEXA) of the lumbar spine, total left hip, and femoral neck was performed. COMPARISON: Comparison is made with the prior examination dated 09/16/2017. FINDINGS: The bone mineral density of the lumbar spine is 1.014 g/cm2, corresponding to a T-score of -1.4, and a Z-score of 0.0. This is indicative of osteopenia. This represents a BMD change of 16.2% compared to the prior exam. This is statistically significant. The bone mineral density of the left total hip is 0.787 g/cm2, corresponding to a T-score of -1.8, and a Z-score of -0.4. This is indicative of osteopenia. This represents a BMD change of 4.0% compared to the prior exam. This is not statistically significant. The bone mineral density of the left femoral neck is 0.867 g/cm2, corresponding to a T-score of -1.2, and a Z-score of 0.4. This is indicative of osteopenia. This represents a BMD change of 16.4% compared to the prior exam. FRACTURE RISK: The FRAX index suggests a ten year probability of major osteoporotic fracture of 10.1%, and of hip fracture 2.4%. MM/XR DEXA axial skeleton IMPRESSION: Based on bone mineral density, and according to World Health Organization (WHO) criteria, the diagnosis is consistent with osteopenia. Statistically, 68% of repeat scans fall within 1 SD (+/- 0.010 g/cm2 for AP spine L1-L4) and 1 SD (+/- 0.012 g/cm2 for femur total) FRAX is a trademark of the [employer] [place] for Metabolic Bone Disease, a World Health Organization (WHO) Collaborating Center. Electronically signed by: Arya Caballero MD 10/24/2024 12:19 PM EDT RP Dictated By: Arya Caballero MD Signed By: <Electronically signed by Arya Caballero MD in OV> 10/24/24 1219 DD/ 1140 TD/TT: 10/24/24 1155 Yard Laborer: [facility] [address] [place] [address] Mammography Report Signed Patient: Eugenia Epps MR#: [id number] 67 : 1950 Acct:[id number] Age/Sex: 74 / F ADM Date: 10/24/24 Loc: AYAD Attending Dr: Garfield Quiles MD Ordering Physician: Garfield Quiles MD Results: Date of Service: 10/24/24 Follow Up: Procedure(s): XR DEX A axial skeleton Accession Number(s): [id number] cc: Alexandro Perez MD; Garfield Quiles MD EXAMINATION: DXA BON E DENSITY AXIAL HISTORY: M85.80 - Other specified disorders of bone density and structure, unspecified... TECHNIQUE: Memorandom Dual energy absorptiometry (DEXA) of the lumbar spine, total left hip, and femoral neck was performed. COMPARISON: Comparis on is made with the prior examination dated 09/16/2017. FINDINGS: The bone mineral density of the lumbar spine is 1.014 g/cm2, corresponding to a T-score of -1.4, and a Z-score of 0.0. This is indicative of osteopenia. This represents a BM D change of 16.2% compared to the prior exam. This is statistically significant. The bone mineral density of the left total hip is 0.787 g/cm2, corresponding to a T-score of -1.8, and a Z-score of -0.4. This is indicative of osteopenia. This represents a BM D change of 4.0% compared to the prior exam. This is not statistically significant. The bone mineral density of the left femoral neck is 0.867 g/cm2, corresponding to a T-score of -1.2, and a Z-score of 0.4. This is indicative of osteopenia. This represents a BM D change of 16.4% compared to the prior exam. FRACTURE RISK: The FRAX index suggests a ten year probability of major osteoporotic fracture of 10.1%, a nd of hip fracture 2.4%. __ MM/XR DEXA axial skeleton IMPRESSION: Based on bone minera l density, and according to World Health Organization (WHO) criteria, the diagnosis is consistent with osteopenia. Statistically, 68% o f repeat scans fall within 1 SD (+/- 0.010 g/cm2 for AP spine L1-L4) and 1 SD (+/- 0.012 g/cm2 for femur total) FRAX is a trademark of the [employer] [place] for Metabolic Bone Disease, a World Health Organization (WHO) Collaborating Center. Electronically jason d by: Arya Caballero MD 10/24/2024 12:19 PM EDT RP Dictated By: Arya Caballero MD Signed By: <Electronically signed by Arya Caballero MD in OV> 10/24/24 1219 DD/ 1140 TD/TT: 10/24/24 1155 Yard Laborer: Reason For Referral Reason needs colonoscopy Diagnosis 1 Tubular adenoma (D36 .9) Referral Organization Alexandro Perez MD Referring Provider First Name Alexandro Referring Provider Last Name Chris Referring Provider Speciality Internal M edicine Referred Provider CHERI MARTINEZ Referred Provider Specialty Gastroentero logy General Notes Ada Jimenez 0 12/21/2024 11:53:58 AM >referral info faxedBarbara Annette 01/05/2025 02:37:11 PM >was told by office patient patient is aware of appt Referral Priority Routine Referral Appointment Date 03/23/2025 Medications Medication SIG (Take, Route, Frequency, Duration) Notes Start Date End Date Status Chantix Starting Month Hilario 0.5 MG X 11 & 1 MG X 42 DIRECTED PER PACKAGE TWICE A DAY for 23 Not-Taking Chantix Starting Month Hilario 0.5 MG X 11 & 1 MG X 42 as directed Orally twice a day for 30 days 12/01/2016 Not-Taki ng Ibuprofen 800 MG TAKE 1 TABLET BY ALLISON TH THREE TIMES A DAY WITH FOOD OR MILK NEEDED EVERY 8 HOURS for 30 Active Zocor 20 MG TAKE 1 TABLET BY ALLISON TH EVERY DAY for 90 Not-Taking Valsartan-hydroCHLOROthia zide 160-12.5 MG 1 tablet Orally Once a day for 30 day(s) 08/24/2019 Not-Taking dilTIAZem HCl ER 60 MG TAKE 1 CAPSULE BY MOUTH EVERY DAY for 90 Active Atorvastatin Calcium 20 MG TAKE 1 TABLET BY MOUTH EVERY DAY for 90 Active LORazepam 0.5 MG 1 tablet at bedtime as needed Orally Once a day for 10 days 05/09/2024 Active Vitamin D (Cholecalciferol) 1000 UNIT 1 tablet Orally Once a day for 30 day(s) 02/11/2015 Active Valsartan 320 MG TAKE 1 TABLET BY ALLISON TH EVERY DAY FOR 30 DAYS for 90 Active Immunizations Vaccine Route Administration [...] q uitting Additional Findings: Tobacco User Kiana t cigarette smoker, not currently using another [...] Problem Status W/U Status Risk Notes Problem 14345368 Hypokalemia (E87.6) Active confirmed Problem 567401565 Tubular adenoma (D36.9) Active confirmed Problem 73618059 Vitamin D defici ency (E55.9) Active confirmed Problem 27942099 Anxiety (F41.9) Active confirmed Problem Disorder of parathyroid gland (83976213) Disorder of parathyroid gland, unspecified (E21.5) Active confirmed Problem Hypercalcemia (38454899) Hypercalcemia (E83.52) Active confirmed Problem 7640144 Panlobular emphy sema (J43.1) Active confirmed Problem 63714983 Essential hypert ension (I10) Active confirmed Problem 60899215 Hyperparathyroid ism (E21.3) Active confirmed Problem 493779327 History of abnor mal mammogram (Z87.898) Active confirmed Problem 02137865 Current smoker (F17.200) Active confirmed Problem 433898001 Spinal stenosis of lumbosacral region (M48.07) Active confirmed Problem 614002429 Prediabetes (R73.03) Active confirmed Problem 281042073 Pure hypercholesterolemia (E78.00) Active confirmed Problem 32117136 Osteoporosis wit hout current pathological fracture, unspecified osteoporosis type (M81.0) Active confirmed Problem 130400993 Poor balance (R26.89) Active confirme d Vital Signs Blood pressure diastolic 80 mm Hg 09/01/2024 ryan ght is down 11 pounds since 01-28-24 Height 66 in 09/01/2024 weight is down 11 pounds since 01-28-24 Blood pressure systolic 178 mm Hg 09/01/2024 weig ht is down 11 pounds since 01-28-24 Weight 161 lbs 09/01/2024 weight is down 11 pounds since 01-28-24 BMI 25.98 kg/m2 09/01/2024 weight is down 11 pounds since 01-28-24 Encounters Encounter Location Date Provider Diagnosis Alexandro Perez MD [address] [place] [id number] 07/11/2024 Alexandro Perez Pure hypercholestero lemia E78.00 ; Essential hypertension I10 ; Vitamin D deficiency E55.9 and Prediabetes R73.03 Alexandro Perez MD [address] [place] [address] Drive [address] [place] [id number] 09/01/2024 Alexandro Perez Disorder of parathyr oid gland, unspecified E21.5 ; Osteoporosis without current pathological fracture, unspecified osteoporosis type M81.0 ; Pure hypercholesterolemia E78.00 ; Essential hypertension I10 and Vitamin D deficiency E55.9 Alexandro Perez MD [address] [place] [id number] 02/25/2024 Alexandro Perez MD [address] [place] [id number] 04/07/2024 Alexandro Perez MD [address] [facility] [address] [place] [id number] 12/18/2024 Alexandro Perez MD [address] [place] [id number] 05/09/2024 Alexandro Perez Assessments Encounter Date Diagnosis (ICD Code) Assessment Notes Treatment Notes Treatment Clinical Notes Section Notes 07/11/2024 Pure hypercholesterolemia (ICD-10 - E78.00) 09/01/2024 Disorder of parathyr oid gland, unspecified (ICD-10 - E21.5) being followed by endocrine 07/11/2024 Essential hypertensi on (ICD-10 - I10) 09/01/2024 Osteoporosis without current pathological fracture, unspecified osteoporosis type (ICD-10 - M81.0) 07/11/2024 Vitamin D deficiency (ICD-10 - E55.9) 09/01/2024 Pure hypercholesterolemia (ICD-10 - E78.00) well controlled 07/11/2024 Prediabetes (ICD-10 - R73.03) 09/01/2024 Essential hypertensi on (ICD-10 - I10) good bp 09/01/2024 Vitamin D deficiency (ICD-10 - E55.9) good vit d level continue on presen Plan Of Treatment Pending Test Test Name Order Date Electrocardiogram (EKG) 12/03/2017 Electrocardiogram (EKG) 12/16/2018 US BREAST VERO 10/30/2013 MRI LUMBAR SPINE NO CONTRAST 10/14/2023 BONE DENSITY DEXA 12/28/2019 MAMMOGRAM DIGITAL BILATERAL SCREEN 09/12 Microalbumin, Random 07/11/2024 UA ClnCatch+Micro w/rflx Cult 07/11/2024 Next Appt Details Provider Name:Alexandro reyes, 02/22/2025 08:30:00 AM, [address] [facility], Suite [facility], [place], [place], [phone], Provider Name:Alexandro Brink ier, 03/05/2025 11:15:00 AM, [address], [address], [place], [phone], Provider Name:Alexandro Brink ier, 08/30/2025 07:45:00 AM, [address] [facility] [address], [address], [place], [phone], Provider Name:Alexandro Brink ier, 09/06/2025 11:00:00 AM, [address], [address], [place], [phone], Insurance Providers Payer Name Payer Address Payer Phone Subscriber Number Group Number Insured Name Patient Relationship to Insured Coverage Start Date Coverage End Date [employer] [address] [place] [address] [id number] [place] Self - patient is the insured [facility] [address] [place] [phone] [id number] Jeanine Epps Self - patient is [...]
--- NOTE | 2025-03-14 15:08 | HO.ANESPROP2 ---
Documented by User: Bella Escalante NP 03/14/25 15:08 HPI - Anesthesia Eval Consult details Narrative: 74 yr old female for colonoscopy PMFSH Active Problems Active Problems: All Active Problems (Updated 11/07/24 @ 15:29 by Garfield Quiles MD) Spinal stenosis, lumbar region with neurogenic claudication (Acute) Encounter for osteoporosis screening in asymptomatic postmenopausal patient (Acute) Asymptomatic postmenopausal state (Acute) Osteopenia (Acute) Lumbar spinal stenosis (Acute) Lumbar radicular pain (Acute) Chronic low back pain (Acute) Degeneration, intervertebral disc, lumbosacral (Acute) Dysfunction of the multifidus muscle of lumbar region (Acute) Lumbar spondylosis (Acute) Vertebrogenic low back pain (Acute) Lumbar degenerative disc disease (Acute) Hypercalcemia (Acute) Past Medical History Medical History (Updated 11/07/24 @ 15:29 by Garfield Quiles MD) Hypercalcemia Colon cancer screening Tubular adenoma Hypercholesterinemic xanthomatosis HTN (hypertension) Family History Family History Father Colon cancer Mother Colon cancer Breast CA Surgical History Surgical History Hx of arthroscopic knee surgery History of total right hip arthroplasty Hx of colonoscopy History of Problems with Anesthesia: Yes Social History Social History Household Members: Spouse and Children Alcohol intake: current Alcohol intake frequency: holidays/special occasions only Patient Tobacco Use Status: Current everyday Tobacco user Tobacco use type: Cigarette Cigarette Packs Per Day: 0.5 Cigarettes Per Day: 7 Use of substances other than those prescribed or required for medical reasons: No Are you DNR?: No Advance Directives: No Advance Directives Information Provided: Yes Patient : No : No Meds Allergies Allergy/AdvReac Type Severity Reaction Status Date / Time No Known Allergies Allergy Verified 11/06/24 12:23 Home Medications ?Medication ?Instructions ?Recorded ?Confirmed ?Last Taken ?Type atorvastatin 20 mg tablet 20 mg PO BEDTIME 03/17/21 03/15/25 Unknown History cholecalciferol (vitamin D3) 25 25 mcg PO DAILY 03/17/21 03/15/25 Unknown History mcg (1,000 unit) capsule potassium chloride 10 mEq 10 meq PO DAILY 03/17/21 03/15/25 03/19/25 History tablet,extended release (Klor-Con) hydrochlorothiazide 25 mg tablet 25 mg PO DAILY 10/25/23 03/15/25 Unknown History valsartan 320 mg tablet 320 mg PO DAILY 01/24/24 03/15/25 Unknown History diltiazem HCl 60 mg mg PO 08/02/24 11/06/24 03/19/25 History capsule,extended release 12 hr Assessment and Plan Final Anesthetic Review History of Problems with Anesthesia: Yes Documented by User: Zo Rivera MD 03/19/25 09:27 [facility] Past Medical History Medical History (Updated 11/07/24 @ 15:29 by Garfield Quiles MD) Hypercalcemia Colon cancer screening Tubular adenoma Hypercholesterinemic xanthomatosis HTN (hypertension) Family History Family History Father Colon cancer Mother Colon cancer Breast CA Family history of problems with anesthesia: No Surgical History Surgical History Hx of arthroscopic knee surgery History of total right hip arthroplasty Hx of colonoscopy History of Problems with Anesthesia: No Social History Social History Household Members: Spouse and Children Alcohol intake: current Alcohol intake frequency: holidays/special occasions only Patient Tobacco Use Status: Current everyday Tobacco user Tobacco use type: Cigarette Cigarette Packs Per Day: 0.5 Cigarettes Per Day: 7 Use of substances other than those prescribed or required for medical reasons: No Are you DNR?: No Advance Directives: No Advance Directives Information Provided: Yes Patient : No : No Meds Allergies Allergy/AdvReac Type Severity Reaction Status Date / Time No Known Allergies Allergy Verified 11/06/24 12:23 Home Medications ?Medication ?Instructions ?Recorded ?Confirmed ?Last Taken ?Type atorvastatin 20 mg tablet 20 mg PO BEDTIME 03/17/21 03/15/25 Unknown History cholecalciferol (vitamin D3) 25 25 mcg PO DAILY 03/17/21 03/15/25 Unknown History mcg (1,000 unit) capsule potassium chloride 10 mEq 10 meq PO DAILY 03/17/21 03/15/25 03/19/25 History tablet,extended release (Klor-Con) hydrochlorothiazide 25 mg tablet 25 mg PO DAILY 10/25/23 03/15/25 Unknown History valsartan 320 mg tablet 320 mg PO DAILY 01/24/24 03/15/25 Unknown History diltiazem HCl 60 mg mg PO 08/02/24 11/06/24 03/19/25 History capsule,extended release 12 hr Exam Airway Mallampati Class: III (crowns throughout) TM Dist: >3cm Neck ROM: Full Heart: rrr Lungs: cta Assessment and Plan Assessment Anesthesia Assessment: Anesthesia Plan Discussed and Chart Reviewed Final Anesthetic Review Family History of Problems with Anesthesia: No History of Problems with Anesthesia: No NPO: Yes ASA Class: III Final Preanesthetic Review: No Changes in Pt Med Stat, Meds/Allgs Chart Reviewed and Consent Obtained/Reviewed Patient Risk: Low Procedure Risk: Low Anesthetic Plan Anesthetic Plan: MAC: Disposition: Standard PACU
[2025-03-15 13:05] VITALS: BMI 28.0
[2025-03-15 13:15] VITALS: BMI 25.1
--- NOTE | 2025-03-19 07:31 | P.HPSUR_ITS ---
Pre-Procedural Eval Section A - 24 Hr Update-Section A only Date of Service: 03/19/25 The patient is an INPATIENT: No The patient has been examined within 24 hours of the surgical procedure. The History & Physical has been completed within 30 days and I have reviewed it.: No Section B - Complete if H&P > 30 days Chief Complaint: Surveillance for colon polyps Relevant Family History (Specify if Yes): Yes Relevant Social History: Tobacco Use Present Medications: see Short Stay Collaborative assessment Medical History: Significant History (HTN (hypertension) Hypercholesterinemic xanthomatosis Tubular adenoma) History of Previous Operations: Relevant previous surgery/procedure and date(s) (History of total right hip arthroplasty Hx of arthroscopic knee surgery Hx of colonoscopy) Allergies: Allergies Allergy/AdvReac Type Severity Reaction Status Date / Time No Known Allergies Allergy Verified 11/06/24 12:23 Review of Systems Sugical H&P ROS: Negative: Constitution, Cardiovascular, Respiratory and Dalton rointestinal Exam Surgical H&P Exam: Normal: Heart, Normal: Lungs, Normal: Extremities and Normal: Abdomen Plan Diagnosis/Plan: Unchanged I have reviewed the history and physical and performed a pertinent physical examination on my patient. No changes have occurred unless specified. Time Spent With Patient Time: Total time managing care of this patient today ____ minutes.
[2025-03-19 09:09] VITALS: BMI 25.7
[2025-03-19 09:12] VITALS: BP 218/112; PULSE 79; RESP 16; TEMP 36; O2SAT 98
[2025-03-19] MEDS: Lactated Ringers 1,000 ML 100 ML IVCONT (09:30)
--- NOTE | 2025-03-19 10:51 | HO.OPN-COLON ---
Colonoscopy Operative Note Operative Note Date of Service: 03/19/25 Narrative: COLONOSCOPY TILL CECUM WITH SNARE POLYPECTOMY AND HEMOCLIP PLACED Pre-op diagnosis: Surveillance for colon polyps. Post-op diagnosis:? Colon polyps, Diverticulosis, hemorrhoids Endoscopist:? Franck Girard MD Anesthesia:?MAC Consent: Indications for the procedure and potential complications of bleeding, perforation, reaction to medications and missed diagnosis were discussed with the patient and informed consent was obtained. Instrument: Olympus PCF H 190 L variable stiffness pediatric colonoscope Monitoring: Vital signs and clinical assessment, intermittent blood pressure monitoring, continuous EKG monitoring, Pulse oximetry and Carbon Dioxide monitoring were done throughout the procedure. Please see anesthesia flowsheet. Colon withdrawl time was 25 minutes. Procedure: The patient was placed in the left lateral decubitis position and pre-procedure medications were administered. After a digital rectal examination of the ano-rectum, the video colonoscope was inserted into the rectum and advanced through the colon to the cecum. The colonoscope was slowly withdrawn in a retrograde panoramic fashion and the colon mucosa was carefully examined including a retroflexed view of the rectum. Findings and interventions are described below. Procedure Difficulty: without difficulty Findings: Terminal Ileum: Not evaluated Cecum: Normal Ascending Colon: A 10-12 mm sessile polyp in the AC - removed with a hot snare Transverse Colon: A 12-15 mm sessile polyp in the proximal TC - removed with a hot snare Descending Colon: A 15 mm sessile polyp - removed with a hot snare. Moderate diverticulosis Sigmoid Colon: A 2 cms pedunculated polyp at 20 cms - removed with a hot snare, Polyp was not retrieved. Polypectomy site was closed with 1 hemoclip. Moderate diverticulosis Rectum: Normal Ano-rectum: Moderate internal hemorrhoids Colon preparation: Good after copious irrigation. [place] Bowel Preparation Scale Right colon; 2 Transverse colon: 2 Left colon; 2 (0 = Unprepared colon segment with mucosa not seen due to solid stool that cannot be cleared. 1 = Portion of mucosa of the colon segment seen, but other areas of the colon segment not well seen due to staining, residual stool and/or opaque liquid. 2 = Minor amount of residual staining, small fragments of stool and/or opaque liquid, but mucosa of colon segment seen well. 3 = Entire mucosa of colon segment seen well with no residual staining, small fragments of stool or opaque liquid) Impression and Post Procedure Diagnosis: Colonoscopy Findings: Four medium sized polyps were removed Moderate diverticulosis seen in the left colon Moderate hemorrhoids on retroflexed exam. Plan: Pt has a FU appointment on 03/23/25 with Haylee Covington NP Flexible sigmoidoscopy in 6 months to check polypectomy site in the sigmoid colon (polyp was not retrieved) Repeat Colonoscopy in 3-5 years if polyps are adenomatous and due to history of adenomatous colon polyps. Above findings were reviewed with the patient and relevant handouts were given and the discharge area.
[2025-03-19 10:54] VITALS: BP 168/89; PULSE 63; RESP 16; TEMP 36.4; O2SAT 99
[2025-03-19 11:09] VITALS: BP 193/94; PULSE 68; RESP 16; TEMP 36.4; O2SAT 100
== END 2025-03-19 11:57 | disposition home or self-care (01) ==
PROVIDERS: PCP Internal Medicine; Visit Provider Internal Medicine Gastroenterology
PROC: 0DJD8ZZ Inspection of Lower Intestinal Tract, Via Natural or Artificial Opening Endoscopic (ICD-10-PCS; CPT 45378; principal; 2025-03-19 10:10)
DX: Z12.11 Encounter for screening for malignant neoplasm of colon (principal); Z86.0101 Personal history of adenomatous and serrated colon polyps; Z80.0 Family history of malignant neoplasm of digestive organs; K57.30 Diverticulosis of large intestine without perforation or abscess without bleeding; K64.8 Other hemorrhoids; D12.2 Benign neoplasm of ascending colon; D12.4 Benign neoplasm of descending colon; D12.3 Benign neoplasm of transverse colon; D12.5 Benign neoplasm of sigmoid colon
CPT/HCPCS: 45385; 88305; J2003; J2250; J2704

== ENCOUNTER → 2025-03-19 08:21 | Outpatient (BNV) | payer MEDICARE, OTHER, SELFPAY | PROVIDERS: PCP Internal Medicine; Visit Provider Internal Medicine Gastroenterology | DX: Z12.11 Encounter for screening for malignant neoplasm of colon (principal); K63.5 Polyp of colon; K57.90 Diverticulosis of intestine, part unspecified, without perforation or abscess without bleeding; K64.8 Other hemorrhoids | CPT/HCPCS: 45385 ==

== ENCOUNTER 2025-03-23 08:55 | Outpatient (AMB) | payer MEDICARE, OTHER, SELFPAY ==
--- OUTSIDE RECORDS SUMMARY | 2024-04-07 05:33 | XMS_ITS ---
Author Organization Alexandro Perez MD Address [address] [place] [phone] Care Team Providers Care Conservation Biology Professor Name Role Phone Alexandro Perez Primary Care Provider [phone] Encounters Encounter Location Date Provider Diagnosis Alexandro Perez MD 10 [facility] [address] [place] [phone] 04/07/2024 Alexandro Perez Plan Of Treatment Next Appt Details Provider Name:Alexandro reyes, 08/30/2025 07:45:00 AM, [address] [place] [address], [address], [phone], Provider Name:Alexandro Brink ier, 09/06/2025 11:00:00 AM, [address] [place] [address], [address] [place] [address], [phone], Progress Notes * Jeanine BACON TDOB: 2 (73 yo F)Acc No.[id number]:04/07/2024 Patient: Jeanine Barton :1950 A ge:73 Y S ex:Female Address:[address] [place] [phone] * true * Date: Generated for Sahil dodd/Carmen/Erna on: 1 05/24/2024 09:15 AM EST
--- OUTSIDE RECORDS SUMMARY | 2024-04-17 03:15 | XMS_ITS ---
Author Organization Alexandro Perez MD Address [address] [place] [phone] Care Team Providers Care Supervisor Paste [employer] Name Role Phone Alexandro Perez Primary Care Provider [phone] REASON FOR VISIT Calcium Encounters Encounter Location Date Provider Diagnosis Alexandro Perez MD 10 [facility] [address] [place] [phone] 04/17/2024 Alexandro Perez Hypercalcemia E83.52 Assessments Encounter Date Diagnosis (ICD Code) Assessment Notes Treatment Notes Treatment Clinical Notes Section Notes 04/17/2024 Hypercalcemia (ICD-10 - E83.52) Plan Of Treatment Next Appt Details Provider Name:Alexandro reyes, 08/30/2025 07:45:00 AM, [address] [place] [address], [address], [phone], Provider Name:Alexandro reyes, 09/06/2025 11:00:00 AM, [address] [place] [address], [address], [phone], Progress Notes * Jeanine BACON TDOB: 2 (74 yo F)Acc No.[id number]:04/17/2024 Progress Note Patient: Jeanine LAMA Provider: Elpidio Perez MD :1950 A ge:73 Y S ex:Female Date:04/17/2024 [phone] Subjective: * Chief Complaints: * 1 . [...] 0 04/17/2024 Generated for Sahil dodd/Carmen/Sriitting on: 05/24/2024 09:15 AM EST
--- OUTSIDE RECORDS SUMMARY | 2024-05-09 08:39 | XMS_ITS ---
Author Organization Alexandro Perez MD Address [address] [place] [phone] Care Team Providers Care Language Asst Name Role Phone Alexandro Perez Primary Care Provider REASON FOR VISIT New Refill Request Medications Medication SIG (Take, Route, Fr equency, Duration) Notes Start Date End Date Status LORazepam 0.5 MG 1 tablet at bedtime as needed Orally Once a day for 10 days 05/09/2024 Ac tive Encounters Encounter Location Date Provider Diagnosis Alexandro Perez MD 10 [facility] [address] [place] [phone] 05/09/2024 Alexandro Perez Plan Of Treatment Medication Medication Name Sig Start Date Stop Date Notes LORazepam 0.5 MG 1 tablet at bedtime as needed Orally Once a day for 10 days 05/09/2024 Next Appt Details Provider Name:Alexandro reyes, 08/30/2025 07:45:00 AM, [address] [place] [address], [address] [place] [address], [phone], Provider Name:Alexandro reyes, 09/06/2025 11:00:00 AM, [address] [place] [address], [address], [phone], Progress Notes * Jeanine BACON TDOB: 2 (73 yo F)Acc No.[id number]:05/09/2024 Patient: Jeanine LAMA :1950 A ge:73 Y S ex:Female Address:[address] [place] [phone] * Refills Refill LORazepam Tablet, 0.5 MG, Orally, 10 Tablet, 1 tablet at bedtime as needed, Once a day, 10 days, Refills=0 * true * Date: Generated for Sahil dodd/Carmen/Genarosmitting on: 05/24/2024 09:15 AM EST
--- OUTSIDE RECORDS SUMMARY | 2024-07-11 02:15 | XMS_ITS ---
Author Organization Alexandro Perez MD Address [address] [place], [place] [id number] Care Team Providers Care Piping Drafter Name Role Phone Alexandro Perez Primary Care Provider Results Component Value Reference Range Notes Complete Blood Count Auto Di ff Reviewed date:07/11/2024 12:34:42 PM Interpretation: Performing Lab:[facility], [address] [place] [phone] Notes/Report: White Blood Count 12.1 4.8-10.8 X10*3/uL Red Blood Count 4.53 4.20-5.50 X10*6/uL Hemoglobin 15.1 12.0-16.0 g/dl Hematocrit 43.6 37.0-47.0 % Mean Corpuscular Volume 96.2 80.0-98.0 fL Mean Corpuscular Hemoglobin 33.3 27.0-33.0 pg Mean Corpuscular HGB Conc 34.6 31.0-35.0 g/dl Red Cell Distribution Width 13.9 11.0-16.0 % Platelet Count 393 160-400 X10*3/uL Mean Platelet Volume 9.6 9.4-12.3 fL Neutrophils Percent Auto 75.3 45-73 % Imm Gran Pct Auto 0.7 0.0-0.4 % Lymphocytes Percent Auto 16.1 20-40 % Monocytes Percent Auto 7.8 2-11 % Eosinophils Percent Auto 0.0 0-4 % Basophils Percent Auto 0.1 0-2 % NRBC Pct Auto 0.0 0.0-0.2 /100WBC Neutrophils Absolute Auto 9.1 2.0-8.3 x10*3/u L Imm Gran Abs Auto 0.09 0.00-0.03 X10*3/uL Lymphocytes Absolute Auto 1.9 1.2-4.9 X10*3/u L Monocytes Absolute Auto 0.9 0.1-1.2 X10*3/uL Eosinophils Absolute Auto 0.0 0.0-0.4 X10*3/u L Basophils Absolute Auto 0.0 0.0-0.2 X10*3/uL NRBC Abs Auto 0.000 0.0-0.012 X10*3/uL Comprehensive [place]. Panel Fa st Reviewed date:07/11/2024 12:34:20 PM Interpretation: Performing Lab:[facility], [address] [place] [phone] Notes/Report: Sodium 139 135-145 mmol/L Potassium 3.8 3.3-5.1 mmol/L Chloride 108 96-108 mmol/L Carbon Dioxide 23 22-29 mmol/L Anion Gap 12 12-20 Blood Urea Nitrogen 19 9-16 mg/dL Creatinine 0.72 0.5-1.4 mg/dL Estimated Glomerular Filt Rate > 60 Chronic Kidney Disease: Estimated GFR < 60 mL/min/1.73m2 Severe Kidney Disease: Estimated GFR < 15 mL/min/1.73m2 Glucose Fasting 109 60-99 mg/dL A fasting glucose from 100-125 mg/dl is considered impaired (pre-diabetes). Calcium 10.3 8.4-10.2 mg/dL Bilirubin Total 0.9 0.0-1.0 mg/dL Aspartate Amino Transferase 38 5-31 U/L Alanine Aminotransferase 23 0-31 U/L Total Protein 7.3 6.5-8.0 g/dL Albumin Level 4.5 3.5-5.0 g/dL Alkaline Phosphatase 53 39-117 U/L Lipid Panel Reviewed date:07/11/2024 12:15:44 PM Interpretation: Performing Lab:[facility], [address] [place] [phone] Notes/Report: Triglycerides 86 <150 mg/dL Desirable Triglyceride: less than 150 mg/dL Borderline High Triglyceride 150-199 mg/dL High Triglyceride: 200-499 mg/dL Very High Triglyceride: greater than or equal to 5OO mg/dL Cholesterol 208 <200 mg/dL Desirable Cholesterol: less than 200 mg/dL Borderline High Cholesterol: 200-239 mg/dL High Cholesterol: greater than 239 mg/dL LDL Cholesterol Calculated 94 <100 mg/dL Desirable LDL: less than 100 mg/dL Near Optimal/Above Optimal LDL: 110-129 mg/dL Borderline High LDL: 130-159 mg/dL High LDL: 160-189 mg/dL Very High LDL: greater than or equal to 190 mg/dL HDL Cholesterol 97 >40 mg/dL Desirable HDL: greater than 40 mg/dL Note: This HDL assay may give artificially low results in patients with liver disease. Vitamin D 25-OH Total Reviewed date:07/11/2024 12:15:51 PM Interpretation: Performing Lab:[facility], [address] [place] [phone] Notes/Report: Vitamin D 25-OH Total 64.6 >30 ng/mL Health Based Reference Values* < 20 ng/mL Deficient 20-30 ng/mL Insufficient > 30 ng/mL Sufficient *Cain OCONNELL. N Engl J Med. 2007;357:266-280 There is no well-established upper level of normal vitamin D levels. Some laboratories use 50 ng/mL as an upper limit of normal. However, toxicity is patient-dependent and may occur at any level. Careful correlation with the patient's presentation is necessary and, if there is concern for vitamin D toxicity, treatment should be considered irrespective of the serum level. Care must be taken in interpreting Vitamin D results from different laboratories and methodologies. Published data demonstrated that results from patients undergoing hemodialysis may show a negative bias when tested with various automated 25-OH vitamin D assays when compared to LC-MS/MS. When testing samples from patients whose predominant form of Vitamin D is Vitamin D2, such as patients receiving Vitamin D2 supplementation, results that are subtherapeutic should be confirmed with another method such as LC-MS/MS. Hemoglobin A1c Reviewed date:07/11/2024 12:15:14 PM Interpretation: Performing Lab:[facility], [address] [facility], [place] [address] Notes/Report: Hemoglobin A1c % 5.3 <6.0 % Hemoglobin A1C Reference Range Adults: 4.8 - 6.0 % Non diabetic: < 6.0 % Goal: < 7.0 % Additional Action Suggested: > 8.0 % Note: Hemoglobin A1c results are invalid for patients with abnormal amounts of HbF. Blood transfusions may impact the HbA1c concentration in the patient sample. Estimated Average Glucose 105 eAG = Estimated average glucose which is %A1C expressed as average glucose, using the formula of the H3O-Ppmiliu Average Glucose study (ADAG), Diabetes Care, Vol.31,#8, Nov. 2007 REASON FOR VISIT yearly fasting labs with lipids Encounters Encounter Location Date Provider Diagnosis Alexandro Perez MD [address] [place] [address] [place] [phone] 07/11/2024 Alexandro Peerz Pure hypercholestero lemia E78.00 ; Essential hypertension I10 ; Vitamin D deficiency E55.9 and Prediabetes R73.03 Assessments Encounter Date Diagnosis (ICD Code) Assessment Notes Treatment Notes Treatment Clinical Notes Section Notes 07/11/2024 Pure hypercholesterolemia (ICD-10 - E78.00) 07/11/2024 Essential hypertensi on (ICD-10 - I10) 07/11/2024 Vitamin D deficiency (ICD-10 - E55.9) 07/11/2024 Prediabetes (ICD-10 - R73.03) Plan Of Treatment Pending Test Test Name Order Date Microalbumin, Random 07/11/2024 UA ClnCatch+Micro w/rflx Cult 07/11/2024 Next Appt Details Provider Name:Alexandro reyes, 08/30/2025 07:45:00 AM, [address] [place] [address], Suite [facility], [place], [place], [phone], Provider Name:Alexandro reyes, 09/06/2025 11:00:00 AM, [address] [place] [address], Suite [facility], [place], [place], [phone], Progress Notes * Jeanine BACON TDOB: 2 (74 yo F)Acc No.[id number]:07/11/2024 Progress Note Patient: Jeanine LAMA Provider: Elpidio Perez MD :1950 A ge:73 Y S ex:Female Date:07/11/2024 Address: [id number] Subjective: * Chief Complaints: * 1 . Yearly fasting labs with lipids. * Medical History: Objective: * Vitals: Assessment: * Assessment: 1. P ure hypercholesterolemia - E78.00 (Primary) 2 . E ssential hypertension - I10 3 . V itamin D deficiency - E55.9 4 . P rediabetes - R73.03 Plan: * Treatment: 2. E ssential hypertension L AB: Microalbumin, Random L AB: UA ClnCatch+Micro w/rflx Cult L AB: Complete Blood Count Auto Diff (Collection Date & Time - 07/11/2024 07:15 AM) L AB: Comprehensive [place]. Panel Fast (Collection Date & Time - 07/11/2024 07:15 AM) L AB: Lipid Panel (Collection Date & Time - 07/11/2024 07:15 AM) L AB: Vitamin D 25-OH Total (Collection Date & Time - 07/11/2024 07:15 AM) L AB: Hemoglobin A1c (Collection Date & Time - 07/11/2024 07:15 AM) 3. V itamin D deficiency L AB: Microalbumin, Random L AB: UA ClnCatch+Micro w/rflx Cult L AB: Complete Blood Count Auto Diff (Collection Date & Time - 07/11/2024 07:15 AM) L AB: Comprehensive [place]. Panel Fast (Collection Date & Time - 07/11/2024 07:15 AM) L AB: Lipid Panel (Collection Date & Time - 07/11/2024 07:15 AM) L AB: Vitamin D 25-OH Total (Collection Date & Time - 07/11/2024 07:15 AM) L AB: Hemoglobin A1c (Collection Date & Time - 07/11/2024 07:15 AM) 4. P rediabetes L AB: Microalbumin, Random L AB: UA ClnCatch+Micro w/rflx Cult L AB: Complete Blood Count Auto Diff (Collection Date & Time - 07/11/2024 07:15 AM) L AB: Comprehensive [place]. Panel Fast (Collection Date & Time - 07/11/2024 07:15 AM) L AB: Lipid Panel (Collection Date & Time - 07/11/2024 07:15 AM) L AB: Vitamin D 25-OH Total (Collection Date & Time - 07/11/2024 07:15 AM) L AB: Hemoglobin A1c (Collection Date & Time - 07/11/2024 07:15 AM) * Procedure Codes: 3 6415 VENIPUNCT, ROUTINE* * * The named appointment provid er may or may not be the originator of this progress note, and it is not deemed complete until electronically signed by the appointment provider. Sign off status: Pending * Provider: Elpidio Perez MD Date: 0 07/11/2024 Generated for Sahil dodd/Carmen/Sriitting on: 1 05/24/2024 09:15 AM EST
--- OUTSIDE RECORDS SUMMARY | 2024-09-01 05:00 | XMS_ITS ---
Author Organization Alexandro Perez MD Address [address] [place], [place] [phone] Care Team Providers Care Compliance Representative Dealer Name Role Phone Alexandro Perez Primary Care [...] kg/m2 09/01/2024 weight is down 11 pounds [facility] 10-25-24 Encounters Encounter Location Date Provider Diagnosis Alexandro Perez MD [address] [place] [address] [place] [phone] 09/01/2024 Alexandro Perez Disorder of parathyr oid [...] Next Appt Details Provider Name:Alexandro Brink ier, 08/30/2025 07:45:00 AM, [address], [address], [place], [place], [phone], Provider Name:Alexandro Brink ier, 09/06/2025 11:00:00 AM, [address], [address], [place], [place], [phone], Progress Notes * Jeanine BACON TDOB: 2 (74 yo F)Acc No.[id number]:09/01/2024 Patient: Jeanine LAMA Provider: Elpidio Perez MD :1950 A ge:74 Y S ex:Female Date:09/01/2024 Address:[address] [place] [id number] Subjective: * Chief Complaints: * 1 . [...] ab:Complete Blood Count Auto Diff (Order Date 07/11/2024) (Collection Date & Time [...] Auto 0.000 0.0-0.012 - X10*3/uL L ab:Comprehensive [place]. Panel Fast (Order Date - 07/11/2024) (Collection [...] masses palpable. RECTAL EXAM: d one by meter tester. FEMALE GENITOURINARY: d one by meter tester. EXTREMITIES: n o clubbing, cyanosis, or edema. [...] Medicine: Counseling: C are goal follow-up plan: [place] rao for abnormal BMI provided?Yes, Olamide moyer Normal BMI Follow-up G pooja encouragement to exercise. * * The named appointment provid er may or may not be the originator of this progress note, and it is not deemed complete until electronically signed by the appointment provider. Sign off status: Pending * Provider: Elpidio Perez MD Date: 0 09/01/2024 Generated for Sahil dodd/Carmen/Sriitting on: 1 05/24/2024 09:16 AM EST History and Physical Notes * [...] edema BREASTS: declined RECTAL EXAM: done by meter tester FEMALE GENITOURINARY: done by meter tester ORAL CAVITY: mucosa moist
--- OUTSIDE RECORDS SUMMARY | 2024-12-18 10:27 | XMS_ITS ---
Author Organization Alexandro Perez MD Address [address] [place] [phone] Care Team Providers Care Construction Field Engineer Name Role Phone Alexandro Perez Primary Care Provider [phone] REASON FOR VISIT referral Encounters Encounter Location Date Provider Diagnosis Alexandro Perez MD [address] [facility] [address] [place] [phone] 12/18/2024 Alexandro Perez Plan Of Treatment Next Appt Details Provider Name:Alexandro reyes, 08/30/2025 07:45:00 AM, [address] [place] [address], [address], [phone], Provider Name:Alexandro Brink ier, 09/06/2025 11:00:00 AM, [address] [place] [address], [address], [phone], Progress Notes * Jeanine BACON TDOB: (74 yo F)Acc No.[id number]:12/18/2024 Patient: Jeanine LAMA :1950 A ge:74 Y S ex:Female Address:[address] [place] [phone] * true * Date: Generated for Sahil dodd/Carmen/Erna on: 05/24/2024 09:15 AM EST
--- OUTSIDE RECORDS SUMMARY | 2025-02-22 03:30 | XMS_ITS ---
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 Role Phone Alexandro Perez Primary Care Provider [phone] Results Component Value Reference Range Notes Liver Panel Reviewed date:02/23/2025 04:24:17 PM Interpretation: Performing Lab:[address] [address] Notes/Report: Bilirubin Total 0.6 0.0-1.0 mg/dL Bilirubin Direct 0.2 0.0-0.5 mg/dL Aspartate Amino Transferase 27 5-31 U/L Alanine Aminotransferase 17 0-31 U/L Total Protein 7.2 6.5-8.0 g/dL Albumin Level 4.5 3.5-5.0 g/dL Alkaline Phosphatase 65 39-117 U/L Glucose Fasting Reviewed date:02/23/2025 04:23:22 PM Interpretation: Performing Lab:[address] [address] Notes/Report: Glucose Fasting 96 60-99 mg/dL Lipid Panel with Reflex Reviewed date:02/23/2025 04:26:59 PM Interpretation: Performing Lab:[address] [address] Notes/Report: Triglycerides 79 <150 mg/dL Desirable Triglyceride: less than 150 mg/dL Borderline High Triglyceride 150-199 mg/dL High Triglyceride: 200-499 mg/dL Very High Triglyceride: greater than or equal to 5OO mg/dL Cholesterol 186 <200 mg/dL Desirable Cholesterol: less than 200 mg/dL Borderline High Cholesterol: 200-239 mg/dL High Cholesterol: greater than 239 mg/dL LDL Cholesterol Calculated 84 <100 mg/dL Desirable LDL: less than 100 mg/dL Near Optimal/Above Optimal LDL: 110-129 mg/dL Borderline High LDL: 130-159 mg/dL High LDL: 160-189 mg/dL Very High LDL: greater than or equal to 190 mg/dL HDL Cholesterol 87 >40 mg/dL Desirable HDL: greater than 40 mg/dL Note: This HDL assay may give artificially low results in patients with liver disease. Hemoglobin A1c Reviewed date:02/22/2025 04:53:25 PM Interpretation: Performing Lab:[facility], [address] [place] [address] Notes/Report: Hemoglobin A1c % 4.9 <6.0 % Hemoglobin A1C Reference Range Adults: 4.8 - 6.0 % Non diabetic: < 6.0 % Goal: < 7.0 % Additional Action Suggested: > 8.0 % Note: Hemoglobin A1c results are invalid for patients with abnormal amounts of HbF. Blood transfusions may impact the HbA1c concentration in the patient sample. Estimated Average Glucose 94 eAG = Estimated average glucose which is %A1C expressed as average glucose, using the formula of the I4W-Mtodmpb Average Glucose study (ADAG), Diabetes Care, Vol.31,#8, Nov. 2007 REASON FOR VISIT FASTING LIPIDS Encounters Encounter Location Date Provider Diagnosis Alexandro Perez MD [address] [place] [address] Drive [address] [place], [place] [phone] 02/22/2025 Alexandro Perez Pure hypercholestero lemia E78.00 and Prediabetes R73.03 Assessments Encounter Date Diagnosis (ICD Code) Assessment Notes Treatment Notes Treatment Clinical Notes Section Notes 02/22/2025 Pure hypercholesterolemia (ICD-10 - E78.00) 02/22/2025 Prediabetes (ICD-10 - R73.03) Plan Of Treatment Next Appt Details Provider Name:Alexandro reyes, 08/30/2025 07:45:00 AM, [address], [address], [place], [place], [phone], Provider Name:Alexandro Brink ier, 09/06/2025 11:00:00 AM, [address], [address], [place], [place], [phone], Progress Notes * Jeanine BACON TDOB: 2 (74 yo F)Acc No.[id number]:02/22/2025 Progress Note Patient: Jeanine LAMA Provider: Elpidio Perez MD :1950 A ge:74 Y S ex:Female Date:02/22/2025 [id number] Subjective: * Chief Complaints: * 1 . FASTING LIPIDS. * Medical History: Objective: * Vitals: Assessment: * Assessment: 1. P ure hypercholesterolemia - E78.00 (Primary) 2 . P rediabetes - R73.03? Plan: * Treatment: 2. P rediabetes L AB: Liver Panel (Collection Date & Time - 02/23/2025 08:25 AM) L AB: Glucose Fasting (Collection Date & Time - 02/23/2025 08:25 AM) L AB: Lipid Panel with Reflex (Collection Date & Time - 02/23/2025 08:25 AM) L AB: Hemoglobin A1c (Collection Date & Time - 02/22/2025 08:00 AM) * Procedure Codes: 3 6415 VENIPUNCT, ROUTINE* * * The named appointment provid er may or may not be the originator of this progress note, and it is not deemed complete until electronically signed by the appointment provider. Sign off status: Pending * Provider: Elpidio Perez MD Date: 04/24/2024 Generated for Sahil dodd/Carmen/Sriitting on: 05/24/2024 09:16 AM EST
--- OUTSIDE RECORDS SUMMARY | 2025-02-22 10:33 | XMS_ITS ---
Author Organization Alexandro Perez MD Address [address] [facility] [place] [phone] Care Team Providers Care Assessment Nurse Name Role Phone Alexandro Perez Primary Care Provider REASON FOR VISIT redraw Encounters Encounter Location Date Provider Diagnosis Alexandro Perez MD [address] [facility] [address] [place] [address] [phone] 02/22/2025 Alexandro Perez Plan Of Treatment Next Appt Details Provider Name:Alexandro Brink ier, 08/30/2025 07:45:00 AM, [address] [place] [address], [address], [phone], Provider Name:Alexandro Brink ier, 09/06/2025 11:00:00 AM, [address] [place] [address], [address], [phone], Progress Notes * Jeanine BACON TDOB: 2 (74 yo F)Acc No.[id number]:02/22/2025 Patient: Jeanine LAMA :1950 A ge:74 Y S ex:Female Address:[address] [place] [address] * true * Date: Generated for Sahil dodd/Carmen/Erna on: 05/24/2024 09:15 AM EST
--- OUTSIDE RECORDS SUMMARY | 2025-03-05 06:15 | XMS_ITS ---
Author Organization Alexandro Perez MD Address [address] [place], [place] [phone] Care Team Providers Care Seasonal Sales Associate Name Role Phone Alexandro Perez Primary Care Provider Allergies No Known Allergies Results Component Value Reference Range Notes Hemoglobin A1c Reviewed date:03/05/2025 11:13:51 AM Interpretation: Performing Lab: Notes/Report: Hemoglobin A1c 4.9 Glucose, finger stick Reviewed date:03/05/2025 11:07:36 AM Interpretation: Performing Lab: Notes/Report: Value 123 REASON FOR VISIT 6 MO F/U Medications Medication SIG (Take, Route, Frequency, Duration) Notes Start Date End Date Status Valsartan 320 MG TAKE 1 TABLET BY EVERY DAY FOR 30 DAYS Active LORazepam 0.5 MG 1 tablet at bedtime as needed Orally Once a day for 10 days 05/09/2024 Active Atorvastatin Calcium 20 MG TAKE 1 TABLET BY MOUTH EVERY DAY Active dilTIAZem HCl ER 60 MG TAKE 1 CAPSULE BY MOUTH EVERY DAY Active Vitamin D (Cholecalciferol) 1000 UNIT 1 tablet Orally Once a day for 30 day(s) 02/11/2015 Active Valsartan-hydroCHLOROthia zide 160-12.5 MG 1 tablet Orally Once a day for 30 day(s) 08/24/2019 Not-Taking Zocor 20 MG TAKE 1 TABLET BY ALLISON TH EVERY DAY for 90 Not-Taking Chantix Starting Month Hilario 0.5 MG X 11 & 1 MG X 42 as directed Orally twice a day for 30 days 12/01/2016 Not-Taki ng Chantix Starting Month Hilario 0.5 MG X 11 & 1 MG X 42 DIRECTED PER PACKAGE TWICE A DAY for 23 Not-Taking Ibuprofen 800 MG TAKE 1 TABLET BY ALLISON TH THREE TIMES A DAY WITH FOOD OR MILK NEEDED EVERY 8 HOURS for 30 Active Vital Signs Blood pressure systolic 152 mm Hg 03/05/20 25 Blood pressure diastolic 84 mm Hg 025 Height 66 in 03/05/2025 Weight 155 lbs 03/05/2025 BMI 25.01 kg/m2 03/05/2025 weight is down 6 pounds [facility] e 09-01-24 Encounters Encounter Location Date Provider Diagnosis Alexandro Perez MD [address] [place] [address] [address] [place], [place] [phone] 03/05/2025 Alexandro Perez Pure hypercholestero lemia E78.00 ; Essential hypertension I10 and Prediabetes R73.03 Assessments Encounter Date Diagnosis (ICD Code) Assessment Notes Treatment Notes Treatment Clinical Notes Section Notes 03/05/2025 Pure hypercholesterolemia (ICD-10 - E78.00) stable, will continue current regiment 03/05/2025 Essential hypertensi on (ICD-10 - I10) doing well, will continue current regiment and will continue to monitor 03/05/2025 Prediabetes (ICD-10 - R73.03) doing well with good a1c, no need for medication at this time Plan Of Treatment Medication Medication Name Sig Start Date Stop Date Notes Valsartan 320 MG TAKE 1 TABLET BY ALLISON TH EVERY DAY FOR 30 DAYS LORazepam 0.5 MG 1 tablet at bedtime as needed Orally Once a day for 10 days 05/09/2024 Atorvastatin Calcium 20 MG TAKE 1 TABLET BY MOUTH EVERY DAY dilTIAZem HCl ER 60 MG TAKE 1 CAPSULE BY MOUTH EVERY DAY Treatment Notes Assessment Notes Pure hypercholesterolemia stable, will c ontinue current regiment Essential hypertension doing well, will continue current regiment and will continue to monitor Prediabetes doing well with good a1c, no need for medication at this time Next Appt Details Provider Name:Alexandro reyes, 08/30/2025 07:45:00 AM, [address], [address], [place], [place], [phone], Provider Name:Alexandro Brink ier, 09/06/2025 11:00:00 AM, [address], [address], [place], [phone], Progress Notes * Jeanine BACON TDOB: 2 (74 yo F)Acc No.[id number]:03/05/2025 Progress Notes Patient: Jeanine LAMA Provider: Elpidio Perez MD :1950 A ge:74 Y S ex:Female Date:03/05/2025 Address: [address] [place], [id number] Subjective: * Chief Complaints: * 6 MO F/U * HPI: S ymptom(s): patient is a 74 yo female here for 6 month follow up visit. * ROS: G eneral/Constitutional: Denies C hills. D enies F atigue. D enies F ever. D enies H eadache. E NT: Denies S ore throat. E ndocrine: Denies D izziness. D enies E xcessive sweating.?Denies E xcessive thirst. D enies F requent urination. R espiratory: Denies C ough. D enies S hortness of breath at rest. D enies S hortness of breath with exertion. C ardiovascular: Denies C hest pain at rest. D enies C hest pain with exertion. D enies D izziness. A dmits F luid accumulation in the legs, c /o bilateral ankle edema. D enies S hortness of breath. G astrointestinal: Denies D iarrhea. D enies N ausea. * Medical History: * Surgical History: * Hospitalization/Major Diagno stic Procedure: * Medications: T akingVitamin D (Cholecalciferol) 1000 UNIT Tablet 1 tablet Orally Once a day LORazepam 0.5 MG Tablet 1 tablet at bedtime as needed Orally Once a day dilTIAZem HCl ER 60 MG Capsule Extended Release 12 Hour TAKE 1 CAPSULE BY MOUTH EVERY DAY Ibuprofen 800 MG Tablet TAKE 1 TABLET BY MOUTH THREE TIMES A DAY WITH FOOD OR MILK NEEDED EVERY 8 HOURS Valsartan 320 MG Tablet TAKE 1 TABLET BY MOUTH EVERY DAY FOR 30 DAYS Atorvastatin Calcium 20 MG Tablet TAKE 1 TABLET BY MOUTH EVERY DAY Taking Vitamin D (Cholecalciferol) 1000 UNIT Tablet 1 tablet Orally Once a day Taking LORazepam 0.5 MG Tablet 1 tablet at bedtime as needed Orally Once a day Taking dilTIAZem HCl ER 60 MG Capsule Extended Release 12 Hour TAKE 1 CAPSULE BY MOUTH EVERY DAY Taking Ibuprofen 800 MG Tablet TAKE 1 TABLET BY MOUTH THREE TIMES A DAY WITH FOOD OR MILK NEEDED EVERY 8 HOURS Taking Valsartan 320 MG Tablet TAKE 1 TABLET BY MOUTH EVERY DAY FOR 30 DAYS Taking Atorvastatin Calcium 20 MG Tablet TAKE 1 TABLET BY MOUTH EVERY DAY Not-Taking/PRNValsartan-hydroCHLOROthiazide 160-12.5 MG Tablet 1 tablet Orally Once a day Chantix Starting Month Hilario 0.5 MG X 11 & 1 MG X 42 Tablet as directed Orally twice a day Chantix Starting Month Hilario 0.5 MG X 11 & 1 MG X 42 Tablet DIRECTED PER PACKAGE TWICE A DAY Zocor 20 MG Tablet TAKE 1 TABLET BY MOUTH EVERY DAY Medication List reviewed and reconciled with the patientNot-Taking/PRN Valsartan-hydroCHLOROthiazide 160-12.5 MG Tablet 1 tablet Orally Once a day Not-Taking/PRN Chantix Starting Month Hilario 0.5 MG X 11 & 1 MG X 42 Tablet as directed Orally twice a day Not-Taking/PRN Chantix Starting Month Hilario 0.5 MG X 11 & 1 MG X 42 Tablet DIRECTED PER PACKAGE TWICE A DAY Not-Taking/PRN Zocor 20 MG Tablet TAKE 1 TABLET BY MOUTH EVERY DAY Medication List reviewed and reconciled with the patient * Allergies: N .K.D.A.yes[Allergies Verified] Objective: * Vitals: H t: 66, Wt: 155, BMI:25.01, BP:152/84, Repeat BP:136/78, Wt-k.31. weight is down 6 pounds since 09-01-24. * P ast Orders: L ab:Liver Panel (Order Date - 02/22/2025) (Collection Date & Time - 02/23/2025 08:25 AM) Value Reference Range Bilirubin Total 0.6 0.0-1.0 - mg/dL Bilirubin Direct 0.2 0.0-0.5 - mg/dL Aspartate Amino Transferase 27 5-31 - U/L Alanine Aminotransferase 17 0-31 - U/L Total Protein 7.2 6.5-8.0 - g/dL Albumin Level 4.5 3.5-5.0 - g/dL Alkaline Phosphatase 65 39-117 - U/L L ab:Glucose Fasting (Order Date - 02/22/2025) (Collection Date & Time - 02/23/2025 08:25 AM) Value Reference Range Glucose Fasting 96 60-99 - mg/dL L ab:Lipid Panel with Reflex (Order Date - 02/22/2025) (Collection Date & Time - 02/23/2025 08:25 AM) Value Reference Range Triglycerides 79 <150 - mg/dL Cholesterol 186 <200 - mg/dL LDL Cholesterol Calculated 84 <100 - mg/dL HDL Cholesterol 87 >40 - mg/dL L ab:Hemoglobin A1c (Order Date - 02/22/2025) (Collection Date & Time - 02/22/2025 08:00 AM) Value Reference Range Hemoglobin A1c % 4.9 <6.0 - % Estimated Average Glucose 94 - mg/dL * Examination: G eneral Examination: GENERAL APPEARANCE: a lert, well hydrated, in no distress.? HEAD: n ormocephalic. SKIN: g ood turgor. HEART: r egular rate and rhythm, no murmurs, rubs, gallops.? LUNGS: g ood air movement, clear to auscultation bilaterally. Assessment: * Assessment: 1. E ssential hypertension - I10 (Primary) 2 . P ure hypercholesterolemia - E78.00 3 . P rediabetes - R73.03 Plan: * Treatment: 2. P ure hypercholesterolemia Continue Atorvastatin Calcium Tablet, 20 MG, TAKE 1 TABLET BY MOUTH EVERY DAY. Notes: stable, will continue current regiment 3. P rediabetes Refill LORazepam Tablet, 0.5 MG, 1 tablet at bedtime as needed, Orally, Once a day, 10 days, 10 Tablet, Refills 0; C ontinue dilTIAZem HCl ER Capsule Extended Release 12 Hour, 60 MG, TAKE 1 CAPSULE BY MOUTH EVERY DAY; C ontinue Valsartan Tablet, 320 MG, TAKE 1 TABLET BY MOUTH EVERY DAY FOR 30 DAYS. L AB: Hemoglobin A1c (Collection Date & Time - 03/05/2025) Value Reference Range H emoglobin A1c 4.9 ?LAB: Glucose, finger stick (Collection Date & Time - 03/05/2025)* Value Reference Range V alue 123 Notes: doing well with good a1c, no need for medication at this time?? * Procedure Codes: 8 2947 ASSAY, GLUCOSE, BLOOD QUANT, Modifiers: QW 56538 GLYCATED HEMOGLOBIN TEST, Modifiers: QW * * Sign off status: Completed true * Provider: Elpidio Perez MD Date: 05/06/2024 Generated for Sahil dodd/Carmen/Erna on: 05/24/2024 09:16 AM EST History and Physical Notes * HPI (History of Present Illness) Category Sub-Category Detail Notes Category Not es Symptom(s) patient is a 74 yo female here for 6 month follow up visit Examination Category Sub-Category Detail Notes Category Not es General Examination GENERAL APPEARANCE: alert, w ell hydrated, in no distress HEAD: normocephalic HEART: regular rate and rhy thm, no murmurs, rubs, gallops LUNGS: good air movement, c lear to auscultation bilaterally SKIN: good turgor
--- OUTSIDE RECORDS SUMMARY | 2025-03-09 08:47 | XMS_ITS ---
Author Organization Alexandro Perez MD Address [address] [place] [phone] Care Team Providers Care Clinic Assistant Name Role Phone Alexandro Perez Primary Care Provider REASON FOR VISIT refill Medications Medication SIG (Take, Route, Fr equency, Duration) Notes Start Date End Date Status LORazepam 0.5 MG 1 tablet at bedtime as needed Orally Once a day for 10 days 03/09/2025 Ac tive Encounters Encounter Location Date Provider Diagnosis Alexandro Perez MD [address] [place] [phone] 03/09/2025 Alexandro Perez Prediabetes R73.03 Assessments Encounter Date Diagnosis (ICD Code) Assessment Notes Treatment Notes Treatment Clinical Notes Section Notes 03/09/2025 Prediabetes (ICD-10 - R73.03) Plan Of Treatment Medication Medication Name Sig Start Date Stop Date Notes LORazepam 0.5 MG 1 tablet at bedtime as needed Orally Once a day for 10 days 03/09/2025 Next Appt Details Provider Name:Alexandro reyes, 08/30/2025 07:45:00 AM, [address], [address], [place], [place], [phone], Provider Name:Alexandro reyes, 09/06/2025 11:00:00 AM, [address], [address], [place], [place], [phone], Progress Notes * Jeanine BACON TDOB: 2 (74 yo F)Acc No.[id number]:03/09/2025 Patient: Jeanine LAMA :1950 A ge:74 Y S ex:Female [place] [address] * Refills Refill LORazepam Tablet, 0.5 MG, Orally, 10 Tablet, 1 tablet at bedtime as needed, Once a day, 10 days, Refills=0 * true * Date: Generated for Sahil dodd/Carmen/Genarosmitting on: 05/24/2024 09:15 AM EST
--- NOTE | 2025-03-23 08:57 | A.OFFVIS_ITS ---
Vital Signs 03/23/25 08:58 03/23/25 09:23 Height 5 ft 5 in Weight 152 lb 1.903 oz BMI 25.3 BP 201/118 H 160/98 H Blood Pressure Location Lt brachial Lt brachial Position Sitting Sitting Pulse 97 Intake Visit Reasons: S/P [place] [facility]. Intake Note: Jeanine presents in the office as a follow up colonoscopy CC: States she is here for results - not concerns. Allergies No Known Allergies Allergy (Verified 03/23/25 09:00) HPI HPI S/P [place] [facility].: Details: LAST VISIT: Tubular adenoma Tubular adenoma found on colonoscopy. Patient is aware that she is a to her blood relatives about early colorectal screening. Patient denies any melena, hematochezia, unintentional weight loss or ribbon like stools. Patient will return for colorectal screening in 3 years. Status post colonoscopy Patient denies any ill effects from prep, seizure or procedure itself. Denies any GI she him. Patient states that she did well after colonoscopy. Repeat colo in 3 years due to tubular adenoma without high-grade dysplasia or carcinoma. Diverticulosis Moderate scattered diverticulosis throughout the colon. Patient was encouraged to take MiraLax daily. Discussed with her also diet to prevent diverticulitis. I will see her in 1 year, patient will call me sooner if she will have any GI concerning symptoms. Patient is agreeable to this plan and verbalizes understanding of instructions. She was given the opportunity to ask questions and questions answered. ? Thank you for allowing me to participate her care Plan Medications New polyethylene glycol 3350 (Miralax) 17 grams PO DAILY 100 ea 3RF COLONOSCOPY Findings: Terminal Ileum: Not evaluated Cecum: Normal Ascending Colon: A 10-12 mm sessile polyp in the AC - removed with a hot snare Transverse Colon: A 12-15 mm sessile polyp in the proximal TC - removed with a hot snare Descending Colon: A 15 mm sessile polyp - removed with a hot snare. Moderate diverticulosis Sigmoid Colon: A 2 cms pedunculated polyp at 20 cms - removed with a hot snare, Polyp was not retrieved. Polypectomy site was closed with 1 hemoclip. Moderate diverticulosis Rectum: Normal Ano-rectum: Moderate internal hemorrhoids Colon preparation: Good after copious irrigation. [place] Bowel Preparation Scale Right colon; 2 Transverse colon: 2 Left colon; 2 (0 = Unprepared colon segment with mucosa not seen due to solid stool that cannot be cleared. 1 = Portion of mucosa of the colon segment seen, but other areas of the colon segment not well seen due to staining, residual stool and/or opaque liquid. 2 = Minor amount of residual staining, small fragments of stool and/or opaque liquid, but mucosa of colon segment seen well. 3 = Entire mucosa of colon segment seen well with no residual staining, small fragments of stool or opaque liquid) Impression and Post Procedure Diagnosis: Colonoscopy Findings: Four medium sized polyps were removed Moderate diverticulosis seen in the left colon Moderate hemorrhoids on retroflexed exam. Plan: Flexible sigmoidoscopy in 6 months to check polypectomy site in the sigmoid colon (polyp was not retrieved) Repeat Colonoscopy in 3-5 years if polyps are adenomatous and due to history of adenomatous colon polyps. Above findings were reviewed with the patient and relevant handouts were given and the discharge area. PATHOLOGY RESULTS Diagnosis A. Colon, ascending, polypectomy: Fragments of tubular adenoma; negative for high-grade dysplasia or carcinoma. B. Colon, descending, polypectomy: Tubular adenoma; negative for high-grade dysplasia or carcinoma. C. Colon, transverse, polypectomy: Tubular adenoma; negative for high-grade dysplasia or carcinoma. D. Colon, sigmoid, polypectomy: Fragments of sessile serrated lesion/polyp; negative for cytologic dysplasia. TODAY'S VISIT Patient is here today for follow-up. Patient reports that she has been feeling well after the procedure. Denies any ill effects from the prep, anesthesia procedure itself. Patient denies melena, hematochezia. Large sessile serrated polyp in sigmoid colon that will need to be re-evaluated in 6 months. Message sent to Surgical schedule to bulk procedure for patient. Patient reports that she is moving her bowels without any issues. Denies any GI symptoms today. Denies any abdominal pain or discomfort. Patient's blood pressure however is elevated. Patient reports that she took all of her medications. Will recheck it after visit. [facility] Medical History Hypercalcemia Colon cancer screening Tubular adenoma Hypercholesterinemic xanthomatosis HTN (hypertension) Surgical History Hx of arthroscopic knee surgery History of total right hip arthroplasty Hx of colonoscopy Family History Father Colon cancer Mother Colon cancer Breast CA Social History Household Members: Spouse and Children Alcohol intake: current Alcohol intake frequency: holidays/special occasions only Patient Tobacco Use Status: Current everyday Tobacco user Tobacco use type: Cigarette Cigarette Packs Per Day: 0.5 Cigarettes Per Day: 7 Review of Systems Const Denies weight gain and Denies weight loss ENT Reports no additional complaints, Denies dysphagia and Denies odynophagia Card Reports no additional complaints Resp Reports no additional complaints GI Denies abdominal pain, Denies belching, Denies melena, Denies bloating, Denies change in bowel habits, Denies dysphagia, Denies excessive flatus, Denies dyspe psia, Denies heartburn, Denies diarrhea, Denies loose stools, Denies nausea, Denies odynophagia and Denies vomiting Musc Reports no additional complaints Neuro Reports no additional complaints Psych Reports no additional complaints Endo Reports no additional complaints Physical Exam Vital Signs: Last Vital Signs Pulse 97 03/23/25 08:58 BP 160/98 H 03/23/25 09:23 BMI result Body Mass Index 25.3 Const General: healthy appearing, no acute distress and well developed Nutritional Appearance: well nourished Orientation/consciousness: patient oriented x3 Resp Effort & Inspection: normal respiratory effort, able to speak in complete sentences, no tracheal deviation and symmetric chest movement Auscultation: clear to auscultation bilaterally Cardio Rate: regular rate GI Inspection: Yes normal to inspection and No distended Palpation (GI): Soft to palpation, not firm, nontender and No hepatosplenomegaly present Auscultation: normal bowel sounds General: Yes no CVA tenderness Back/Spine/Pelvis Back: no CVA tenderness Skin General skin exam: elasticity normal, turgor normal and dry skin Neuro General: patient oriented x3 Psych Appearance: grossly normal Mental Status: mental status grossly normal Assessment & Plan Assessment & Plan (1) Tubular adenoma: Code(s): D36.9 - Benign neoplasm, unspecified site (2) Status post colonoscopy: Code(s): Z98.890 - Other specified postprocedural states (3) Diverticular disease: Code(s): K57.90 - Diverticulosis of intestine, part unspecified, without perforation or abscess without bleeding Plan Colonoscopy results discussed with patient. Patient will go for sigmoidoscopy in few months as recommended to check polypectomy site from sigmoid colon. Patient denies any melena, hematochezia, unintentional weight loss or ribbon like stools. Patent reports to be feeling fairly well. Moving her bowels without any issues. Blood pressure high today even after sitting for a while, rechecked and continues to be high. Patient's heart rate was also almost 100. Patient probably could benefit with may be beta-kunal if there is no contraindication. Patient will follow-up in our office after her procedure. She was encouraged to increase fluid intake and activity to promote bowel motility. Patient was encouraged to speak to her PCP about high blood pressure blood pressure. Patient was encouraged to check her blood pressure at home and documented. She is agreeable to this plan of care and verbalizes understanding of instructions. She was given the opportunity to ask questions and all questions answered Thank you for allowing me to participate in her care Orders: Referrals GI Procedure Notification Z12.11 - Encounter for screening for malignant neoplasm of colon Coding Level of Care Code Est Pt Level 3 (61442) Diagnoses Tubular adenoma D36.9 Status post colonoscopy Z98.890 Diverticular disease K57.90 Time Spent (min) 30 Comment 20 minutes spent with patient and additional 10 minutes spent reviewing her records
[2025-03-23 08:58] VITALS: BP 201/118; PULSE 97; BMI 25.3
--- OUTSIDE RECORDS SUMMARY | 2025-03-23 09:15 | XMS_ITS ---
Author Organization Unknown ENCOUNTERS Encounter Performer Location Date Diagnosis [place] [id number] [facility] Pre Admit [address] [address] [id number] [address] [address] [id number] [facility] *Note: Encounters from your own facility or health system may be excluded. Allergies, Adverse Reactions, Alerts Allergen Type Severity Identification Date Medications Name Date Quantity Days Supplied GPI Number
--- OUTSIDE RECORDS SUMMARY | 2025-03-23 09:16 | XMS_ITS | Patient Health Record ---
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 Name Role Phone Alexandro Perez MD Primary Care Provider Ilia Schuster [facility] [phone] Reason For Referral No Information Medications Medication [...] Medicare National [employer] [address] [facility] [address] [id number] Jeanine Epps Self - patient is the insured [facility] [address] [place]LA [place]ARREN [address] [id number] Jeanine Epps Self - patient is the insured Medical (General) History Medical History History ICD Code Arthritis Cholesterol High blood pressure Chicken pox Joint implants/screws Surgical History Surgery Date(Month/Year) right hip replacement 02/08/2017
--- OUTSIDE RECORDS SUMMARY | 2025-03-23 09:17 | XMS_ITS | Patient Health Record ---
Author Organization Alexandro Perez MD Address [address] [place], [place] [id number] Care Team Providers Care Director Sales Name Role Phone Alexandro Perez Primary Care Provider Allergies No Known Allergies Results Component Value Reference Range Notes Hemoglobin A1c Reviewed date:03/05/2025 11:13:51 AM Interpretation: Performing Lab: Notes/Report: Hemoglobin A1c 4.9 Complete Blood Count Auto Di ff Reviewed date:07/11/2024 12:34:42 PM Interpretation: Performing Lab:[facility], [address] [place] [phone] Notes/Report: White Blood Count 12.1 4.8-10.8 X10*3/uL [...] NRBC Abs Auto 0.000 0.0-0.012 X10*3/uL Comprehensive Axtell. Panel Fa st Reviewed date:07/11/2024 12:34:20 PM Interpretation: Performing Lab:[facility], [address] [place] [phone] Notes/Report: Sodium 139 135-145 mmol/L Potassium 3.8 [...] Panel Reviewed date:07/11/2024 12:15:44 PM Interpretation: Performing Lab:[facility], [address] [place] [phone] Notes/Report: Triglycerides 86 <150 mg/dL Desirable Triglyceride: [...] Total Reviewed date:07/11/2024 12:15:51 PM Interpretation: Performing Lab:[facility], [address] [place] [phone] Notes/Report: Vitamin D 25-OH Total 64.6 >30 [...] A1c Reviewed date:07/11/2024 12:15:14 PM Interpretation: Performing Lab:[facility], [address] [place] [phone] Notes/Report: Hemoglobin A1c % 5.3 <6.0 % [...] average glucose, using the formula of the S9D-Aqzvifh Average Glucose study (ADAG), Diabetes Care, Vol.31,#8, Nov. 2007 Liver Panel Reviewed date:02/23/2025 04:24:17 PM Interpretation: Performing Lab:[facility], [address] [place] [phone] Notes/Report: Bilirubin Total 0.6 0.0-1.0 mg/dL Bilirubin Direct 0.2 0.0-0.5 mg/dL Aspartate Amino Transferase 27 5-31 U/L Alanine Aminotransferase 17 0-31 U/L Total Protein 7.2 6.5-8.0 g/dL Albumin Level 4.5 3.5-5.0 g/dL Alkaline Phosphatase 65 39-117 U/L Glucose Fasting Reviewed date:02/23/2025 04:23:22 PM Interpretation: Performing Lab:[facility], [address] [place] [phone] Notes/Report: Glucose Fasting 96 60-99 mg/dL Lipid Panel with Reflex Reviewed date:02/23/2025 04:26:59 PM Interpretation: Performing Lab:[address] [phone] Notes/Report: Triglycerides 79 <150 mg/dL Desirable Triglyceride: [...] A1c Reviewed date:02/22/2025 04:53:25 PM Interpretation: Performing Lab:[facility], [address] [place] [phone] Notes/Report: Hemoglobin A1c % 4.9 <6.0 % [...] average glucose, using the formula of the Y6S-Erzrfff Average Glucose study (ADAG), Diabetes Care, Vol.31,#8, Nov. 2007 Glucose, finger stick Reviewed date:03/05/2025 11:07:36 AM Interpretation: Performing Lab: Notes/Report: Value 123 MM tomosynthesis screening B I Reviewed date:11/03/2024 12:33:30 PM Interpretation: Performing Lab: Notes/Report: [facility]'[address] [place] [address] Mammography Report Signed Patient: Jeanine Epps MR#: [id number] 67 : 1950 Acct:[id number] Age/Sex: 74 / F ADM Date: 10/24/24 Loc: AYAD Attending Dr: Garfield Quiles MD Ordering Physician: Garfield Quiles MD Results: 1Negative Date of Service: 10/24/24 Follow Up: 1 Year From Orig inal Mammogram Procedure(s): MM tomosynthesis screening BI Accession Number(s): [id number] cc: Alexandro Perez MD; Garfield Quiles MD [...] 11/03/24 0923 DD/ 1105 TD/TT: 10/24/24 1130 Platform Builder: [facility] [address] [place], [place] [address] Mammography Report Signed Patient: Eugenia Epps MR#: [id number] 67 : 1950 Acct:[id number] Age/Sex: 74 / F ADM Date: 10/24/24 Loc: HO.MAMMO Attending Dr: Garfield Quiles MD Ordering Physician: Garfield Quiles MD Results: 1Negative Date of Service: Follow Up: 1 Year From Orig inal Mammogram Procedure(s): MM tomosynthesis screening BI Accession Number(s): [id number] cc: Alexandro Perez MD; Garfield Quiles MD EXAMINATION: MM SCREENING DIGITAL BREAST TOMOSYNTHESIS, BILATERAL CLINICAL INFORMATION: Screening. Asymptomatic. COMPARISON: Mammography: Compari son is made with available priors TECHNIQUE: Digital breast mammo graphy with tomosynthesis is performed in both the craniocaudal and mediolateral oblique views along with computer-aided detection (CAD). FINDINGS: There are scattered areas of fibroglandular density (ACR BI-RADS breast composition Category b). There are no signifi cant masses, abnormal calcifications, or other abnormalities. M M/MM tomosynthesis screening BI IMPRESSION: No mammographic evid ence of malignancy. ASSESSMENT: BI-RADS BI-RADS 1 - Negative RECOMMENDATION: Routine annual mammo graphy screening. 1 year F/U This examination yajaira uld not preclude the clinical evaluation of a suspicious palpable abnormality. This patient's infor mation was entered into a reminder system with a target due date for their next mammogram. Electronically jason d by: Desirae Cottrell DO 11/03/2024 09:23 AM EDT RP Dictated By: Desirae Cottrell DO Signed By: <Electron ically signed by Desirae Cottrell DO in OV> 11/03/24 0923 DD/ 1105 TD/TT: 10/24/24 1130 Platform Builder: XR DEXA axial skeleton Reviewed date:10/24/2024 02:51:48 PM Interpretation: Performing Lab: Notes/Report: [facility] [address] [place], [place] [address] Mammography Report Signed Patient: Jeanine Epps MR#: [id number] 67 : 1950 Acct:[id number] Age/Sex: 74 / F ADM Date: 10/24/24 Loc: HO.MAMMO Attending Dr: Garfield Quiles MD Ordering Physician: Garfield Quiles MD Results: Date of Service: 10/24/24 Follow Up: Procedure(s): XR DEXA axial skeleton Accession Number(s): [id number] cc: Alexandro Perez MD; Garfield Quiles MD EXAMINATION: DXA BONE DENSITY AXIAL HISTORY: M85.80 - Other specified disorders of bone density and structure, unspecified... TECHNIQUE: Mobilligy Dual energy absorptiometry (DEXA) of the lumbar [...] of the [employer] [place] for Metabolic Bone Disease, a World Health Organization (WHO) Collaborating Center. Electronically signed by: Arya Caballero MD 10/24/2024 12:19 PM EDT Dictated By: Arya Caballero MD Signed By: <Electronically signed by Arya Caballero MD in OV> 10/24/24 1219 DD/ 1140 TD/TT: 10/24/24 1155 Platform Builder: [facility] [address] [place] [address] Mammography Report Signed Patient: Eugenia Epps MR#: [id number] 67 : 1950 Acct:[id number] Age/Sex: 74 / F ADM Date: 10/24/24 Loc: HO.MAMMO Attending Dr: Garfield Quiles MD Ordering Physician: Garfield Quiles MD Results: Date of Service: Follow Up: Procedure(s): XR DEX A axial skeleton Accession Number(s): [id number] cc: Alexandro Perez MD; Garfield Quiles MD EXAMINATION: DXA BON E DENSITY AXIAL HISTORY: M85.80 - Ot her specified disorders of bone density and structure, unspecified... TECHNIQUE: Payoneer Dual energy absorptiometry (DEXA) of the lumbar spine, total left hip, and femoral neck was performed. COMPARISON: Comparis on is made with the prior examination dated 09/16/2017. FINDINGS: The bone mineral den sity of the lumbar spine is 1.014 g/cm2, corresponding to a T -score of -1.4, and a Z-score of 0.0. This is indicative of osteopenia. This represents a BM D change of 16.2% compared to the prior exam. This is statistically significant. The bone mineral den sity of the left total hip is 0.787 g/cm2, corresponding to a T -score of -1.8, and a Z-score of -0.4. This is indicative of osteopenia. This represents a BM D change of 4.0% compared to the prior exam. This is not statistically significant. The bone mineral den sity of the left femoral neck is 0.867 g/cm2, corresponding to a T -score of -1.2, and a Z-score of 0.4. This is indicative of osteopenia. This represents a BM D change of 16.4% compared to the prior exam. FRACTURE RISK: The FRAX index sugge sts a ten year probability of major osteoporotic fracture of 10.1%, a nd of hip fracture 2.4%. ____ M M/XR DEXA axial skeleton IMPRESSION: Based on bone minera l density, and according to World Health Organization (WHO) criteria, the diagnosis is consistent with osteopenia. Statistically, 68% o f repeat scans fall within 1 SD (+/- 0.010 g/cm2 for AP spine L1-L4) and 1 SD (+/- 0.012 g/cm2 for femur total) FRAX is a trademark of the [employer] [place] [facility] Metabolic Bone Disease, a World Health Organization (WHO) Collaborating Center. Electronically jason d by: Arya Caballero MD 10/24/2024 12:19 PM EDT RP Dictated By: Arya Caballero MD Signed By: <Electron icachris signed by Arya Caballero MD in OV> 10/24/24 1219 DD/ 1140 TD/TT: 10/24/24 1155 Platform Builder: Pathology Reviewed date:03/20/2025 12:36:05 PM Interpretation: Performing Lab:[facility], [address] [place] [phone] Notes/Report: ------ Name: Jeanine Epps Age/Sex: 74/F : 1950 Unit#: [id number] Attend Dr: Franck Girard MD Re03/19/25 Status : [facility] Location: [facility] Disch: ------ SPEC : [id number] RECD : 03/19/25 STATUS: MEI WALKER NUM: [id number] SUSAN: 03/19/25-3 [facility] DR: Franck Girard MD ENTERED: 03/19/25 06 SP TYPE: Surgical OTHR DR: Alexandro Perez MD ORDERED: HE Stain/ , Gross Micro L4/4 Diagnosis A. Colon, ascending, polypectomy: Fragments of tubular adenoma; negative for high-grade dysplasia or carcinoma. B. Colon, descending , polypectomy: Tubular adenoma; negative for high-grade dysplasia or carcinoma. C. Colon, transverse , polypectomy: Tubular adenoma; negative for high-grade dysplasia or carcinoma. D. Colon, sigmoid, polypectomy: Fragments of sessile serrated lesion/polyp; negative for cytologic dysplasia. Clinical History Pre-Op Dx: Surveilla nce for colon polyps Post-Op Dx: Colon po lyps and diverticulosis Microscopic Description A-D. Microscopic sec tions reviewed. Material Received A. Ascending colon polyp B. Descending colon polyp C. Transverse colon polyp D. Sigmoid colon polyp Gross Description Received in 4 parts. A. Received in forma linda labeled ?ascending colon polyp? are 3 fragments of pink white soft tissue measuring 0.1 -0.4 cm in greatest dimension which are wrapped in lens paper and entirely submitted f or microscopic examination, 3 pieces in cassette A. B. Received in forma linda labeled ?descending colon polyp? is a fragment of red-pink soft tissue measuring 0.5 cm in greatest dimension which is wrapped in lens paper and entirely submitted for micros copic examination, 1 piece in cassette B. C. Received in forma linda labeled ?transverse colon polyp? is a polypoid portion of red-pink soft tissue measurin g 0.7 x 0.5 x 0.5 cm in greatest dimension. The outer surface is CONTINUED ON NEXT PAGE ------ Name: Jeanine Epps Age/Sex: 74/F : 1950 Unit#: [id number] Attend Dr: Franck Girard MD Re03/19/25 Status : [facility] Location: [facility] Disch: ------ SPEC : [id number] RECD : 03/19/25 STATUS: MEI WALKER NUM: [id number] SUSAN: 03/19/25-10[address] [facility] [address]: Franck Girard MD ENTERED: 03/19/25- 06 SP TYPE: Surgical OTHR DR: Alexandro Perez MD ORDERED: HE Stain , Gross Micro L4/4 Gross Description (Continued) smooth. The undersid e is maldonado-white and unremarkable. The underside is inked blue. The specimen is bisected , wrapped in lens paper and entirely submitted for microscopic examination, 2 piece s in cassette C. D. Received in forma linda labeled ?sigmoid colon polyp? is a fragment of red-pink soft tissue measuring 0.6 cm in greatest dimension which is wrapped in lens paper and entirely submitted for microscopic examination, 1 piece in cassette D. ([facility]) IHC S/NG Disclaimer NOTE: Unless otherwi se stated, all tissue is formalin-fixed and paraffin-embedded. Some or all of the immunohistochemical tests reported herein may have been developed and their performance characteristics determined by [facility]. They have not been cleared or appr maya by the U.S. Food and Drug Administration (FDA). However, the FDA has determined that such clearance or approval is not necessary. This laboratory is certified under the Clinical Laboratory Improvement Amendments of 1988 (CLIA) as qualified to perform high comp lexity clinical laboratory testing. Copies To: Alexandro Perez MD [facility] [address] [facility] [address] [place] [address] Franck Girard MD [facility] [address] [place] [address] ------ Signed (signature on file) Chris Rodríguez MD 03/20/25 1232 ------ END OF REPORT Reason For Referral Reason needs colonoscopy Diagnosis 1 Tubular adenoma (D36 .9) Referral Organization Alexandro Perez MD Referring Provider First Name Alexandro Referring Provider Last Name Chris Referring Provider Speciality Internal M edicine Referred Provider FRANCK GIRARD Referred Provider Specialty Gastroentero logy General Notes Ada Jimenez 0 12/21/2024 11:53:58 AM >referral info faxed, Ada Jimenez 01/05/2025 02:37:11 PM >was told by office patient patient is aware of appt Referral Priority Routine Referral Appointment Date 03/23/2025 Medications Medication SIG (Take, Route, Frequency, Duration) Notes Start Date End Date Status Valsartan-hydroCHLOROthia zide 160-12.5 MG 1 tablet Orally Once a day for 30 day(s) 08/24/2019 Not-Taking Valsartan 320 MG TAKE 1 TABLET BY ALLISON TH EVERY DAY FOR 30 DAYS Active Zocor 20 MG TAKE 1 TABLET BY ALLISON TH EVERY DAY for 90 Not-Taking LORazepam 0.5 MG 1 tablet at bedtime as needed Orally Once a day for 10 days 03/09/2025 Active Chantix Starting Month Hilario 0.5 MG X 11 & 1 MG X 42 as directed Orally twice a day for 30 days 12/01/2016 Not-Taki ng Chantix Starting Month Hilario 0.5 MG X 11 & 1 MG X 42 DIRECTED PER PACKAGE TWICE A DAY for 23 Not-Taking Atorvastatin Calcium 20 MG TAKE 1 TABLET BY MOUTH EVERY DAY Active dilTIAZem HCl ER 60 MG TAKE 1 CAPSULE BY MOUTH EVERY DAY Active Ibuprofen 800 MG TAKE 1 TABLET BY ALLISON TH THREE TIMES A DAY WITH FOOD OR MILK NEEDED EVERY 8 HOURS for 30 Active Vitamin D (Cholecalciferol) 1000 UNIT 1 tablet Orally Once a day for 30 day(s) 02/11/2015 Active Immunizations Vaccine Route Administration Date Status [...] Problem Status W/U Status Risk Notes Problem 78659601 Hypokalemia (E87.6) Active confirmed Problem 285339109 Tubular adenoma (D36.9) Active confirmed Problem 01608211 Vitamin D defici ency (E55.9) Active confirmed Problem 82216153 Anxiety (F41.9) Active confirmed Problem Disorder of parathyroid gland (20950828) Disorder of parathyroid gland, unspecified (E21.5) Active confirmed Problem Hypercalcemia (55703125) Hypercalcemia (E83.52) Active confirmed Problem 3538525 Panlobular emphy sema (J43.1) Active confirmed Problem 03239270 Essential hypert ension (I10) Active confirmed Problem 35313096 Hyperparathyroid ism (E21.3) Active confirmed Problem 403126594 History of abnor mal mammogram (Z87.898) Active confirmed Problem 74060734 Current smoker (F17.200) Active confirmed Problem 452390232 Spinal stenosis of lumbosacral region (M48.07) Active confirmed Problem 314448883 Prediabetes (R73.03) Active confirmed Problem 468189129 Pure hypercholesterolemia (E78.00) Active confirmed Problem 03609545 Osteoporosis wit hout current pathological fracture, unspecified osteoporosis type (M81.0) Active confirmed Problem 872107008 Poor balance (R26.89) Active confirme d Vital Signs Blood pressure diastolic 84 mm Hg 03/05/2025 ryan ght is down 6 pounds since 530-25 Height 66 in 03/05/2025 weight is down 6 pounds since 09-01-24 Blood pressure systolic 152 mm Hg 03/05/2025 weig ht is down 6 pounds since 09-01-24 Weight 155 lbs 03/05/2025 weight is down 6 pounds since 09-01-24 BMI 25.01 kg/m2 03/05/2025 weight is down 6 pounds since 09-01-24 Encounters Encounter Location Date Provider Diagnosis Alexandro Perez MD [address] [place] [id number] 07/11/2024 Alexandro Perez Pure hypercholestero lemia E78.00 ; Essential hypertension I10 ; Vitamin D deficiency E55.9 and Prediabetes R73.03 Alexandro Perez MD [address] [place] [id number] 09/01/2024 Alexandro Perez Disorder of parathyr oid gland, unspecified E21.5 ; Osteoporosis without current pathological fracture, unspecified osteoporosis type M81.0 ; Pure hypercholesterolemia E78.00 ; Essential hypertension I10 and Vitamin D deficiency E55.9 Alexandro Perez MD [address] [place] [id number] 02/22/2025 Alexandro Perez Pure hypercholestero lemia E78.00 and Prediabetes R73.03 Alexandro Perez MD [address] [place] [id number] 03/05/2025 Alexandro Perez Pure hypercholestero lemia E78.00 ; Essential hypertension I10 and Prediabetes R73.03 Alexandro Perez MD [address] [place] [id number] 04/07/2024 Alexandro Perez MD [address] [place] [id number] 12/18/2024 Alexandro Perez MD [address] [place] [address] [id number] 02/22/2025 Alexandro Perez MD [address] [place] [id number] 03/09/2025 Alexandro Perez Prediabetes R73.03 Alexandro Perez MD [address] [place] [id number] 05/09/2024 Alexandro Perez Assessments Encounter Date Diagnosis (ICD Code) Assessment Notes Treatment Notes Treatment Clinical Notes Section Notes 07/11/2024 Pure hypercholesterolemia (ICD-10 - E78.00) 09/01/2024 Disorder of parathyr oid gland, unspecified (ICD-10 - E21.5) being followed by endocrine 02/22/2025 Pure hypercholesterolemia (ICD-10 - E78.00) 03/05/2025 Pure hypercholesterolemia (ICD-10 - E78.00) stable, will continue current regiment 03/05/2025 Essential hypertensi on (ICD-10 - I10) doing well, will continue current regiment and will continue to monitor 03/09/2025 Prediabetes (ICD-10 - R73.03) 07/11/2024 Essential hypertensi on (ICD-10 - I10) 09/01/2024 Osteoporosis without current pathological fracture, unspecified osteoporosis type (ICD-10 - M81.0) 02/22/2025 Prediabetes (ICD-10 - R73.03) 03/05/2025 Prediabetes (ICD-10 - R73.03) doing well with good a1c, no need for medication at this time 07/11/2024 Vitamin D deficiency (ICD-10 - E55.9) [...] Cult 07/11/2024 Next Appt Details Provider Name:Alexandro rBink ier, 08/30/2025 07:45:00 AM, [address], [address], [place], [place], [phone], Provider Name:Alexandro reyes, 09/06/2025 11:00:00 AM, [address], [address], [place], [place], [phone], Insurance Providers Payer Name Payer Address Payer Phone Subscriber Number Group Number Insured Name Patient Relationship to Insured Coverage Start Date Coverage End Date MEDICARE [facility] [address] [place] [address] [id number] Jeanine Epps Self - patient is the insured [facility] [employer] [address] [place] [phone] [id number] Jeanine Epps Self - patient is [...]
[2025-03-23 09:23] VITALS: BP 160/98
== END 2025-03-23 12:14 | disposition home or self-care (01) ==
LOC: HO.HGI 08:56
PROVIDERS: PCP Internal Medicine; Visit Provider Nurse Practitioner Family
DX: D36.9 Benign neoplasm, unspecified site (principal); Z98.890 Other specified postprocedural states; K57.90 Diverticulosis of intestine, part unspecified, without perforation or abscess without bleeding
CPT/HCPCS: 99213

== ENCOUNTER → 2025-03-23 08:55 | Outpatient (BNVA) | payer MEDICARE, OTHER, SELFPAY | PROVIDERS: PCP Internal Medicine; Visit Provider Nurse Practitioner Family | DX: D12.2 Benign neoplasm of ascending colon (principal); K57.90 Diverticulosis of intestine, part unspecified, without perforation or abscess without bleeding; Z98.890 Other specified postprocedural states; F17.210 Nicotine dependence, cigarettes, uncomplicated; I10 Essential (primary) hypertension | CPT/HCPCS: 99212 ==